=== PATIENT | male | born 1940 | race Caucasian/White ===

== ENCOUNTER 2018-11-05 12:14 | Inpatient (IN) | payer MEDICARE ==
[~2018-11-05] VITALS: Ht 195.6 cm; Wt 82.4 kg
[2018-11-05] MEDS ORDERED: ASPIRIN 325 MG TABLET ONE (12:25)
[2018-11-05 12:42] LABS: CREATININE 1.7 mg/dL (0.5-1.5)
[2018-11-05 12:47] LABS: INR 0.97 (0.85-1.15); PARTIAL THROMBOPLASTIN TIME 40.8 SEC (26.3-35.5); PROTHROMBIN TIME 10.2 SEC (9.6-11.6)
[2018-11-05 12:52] LABS: ALBUMIN 4.2 g/dL (3.5-5.0); BILIRUBIN,TOTAL 0.7 mg/dL (0.2-1.0); TOTAL PROTEIN, SERUM 7.8 g/dL (6.0-8.3)
[2018-11-05 12:53] LABS: BASOPHILS % (AUTO) 0.5 % (0.0-5.0); EOSINOPHILS % (AUTO) 0.6 % (0.0-8.0); HEMATOCRIT 35.4 % (42-54); LYMPHOCYTES % (AUTO) 10.1 % (21.0-51.0); MEAN CORPUSCULAR HEMOGLOBIN 30.4 pg (27.0-33.0); MEAN CORPUSCULAR HGB CONC 34.7 g/dL (32.0-36.0); MEAN CORPUSCULAR VOLUME 87.6 fL (79-99); MONOCYTES % (AUTO) 6.8 % (3.0-13.0); NUCLEATED RED BLOOD CELLS 0.1 % (0.0-0.19); PLATELET COUNT (AUTO) 191 K/uL (130-400); RED BLOOD CELL COUNT(AUTO) 4.04 MIL/uL (4.50-6.20); RED CELL DISTRIBUTION WIDTH 12.7 % (11.0-15.5); WHITE BLOOD COUNT (AUTO) 7.1 K/uL (4.8-10.8)
[2018-11-05] MEDS ORDERED: NITROGLYCERIN 1GM/1 INCH PACKET TD ONE (13:40)
[2018-11-05] MEDS ORDERED: METOPROLOL TARTRATE 25 MG TAB ONE (13:40)
[2018-11-05] MEDS ORDERED: ENOXAPARIN SODIUM 100 MG/1 ML SQ ONE (13:40)
[2018-11-05] MEDS ORDERED: ACETAMINOPHEN 325 MG TAB PO PRN (14:30)
[2018-11-05] MEDS ORDERED: ONDANSETRON HCL 4 MG/2 ML VIAL IVP PRN (14:30)
[2018-11-05] MEDS ORDERED: MORPHINE SULFATE 2 MG/ML 1ML SYG IV PRN (14:30)
[2018-11-05] MEDS ORDERED: HYDRALAZINE HCL 20 MG/ML VIAL IV PRN (14:30)
[2018-11-05] MEDS: FAMOTIDINE 20MG TAB 20 MG TAB PO SCH (14:44)
[2018-11-05 17:50] LABS: TROPONIN I 6.77 ng/mL (0.00-0.06)
[2018-11-05] MEDS ORDERED: NITROGLYCERIN 0.4 MG SL TAB SL PRN (20:30)
[2018-11-05] MEDS: METOPROLOL TARTRATE 25 MG TAB PO SCH (21:00)
[2018-11-05] MEDS: ATORVASTATIN CALCIUM 40 MG TABLET PO SCH (21:00)
[2018-11-05 23:00] VITALS: BP 163/92
[2018-11-05] MEDS ORDERED: ATORVASTATIN CALCIUM 40 MG TABLET ONE (23:00)
--- NOTE | 2018-11-05 23:45 | NUR ---
PATIENT TO ROOM. ORIENTATED TO CALL [facility] AND ROOM. PATIENT DENIES ANY COMPLAINTS OF PAIN OR DISCOMFORT AT PRESENT. PATIENT SHAVED BY ARTIFICIAL PEARL MAKER AND SHOWERED. PATIENT VERBALIZED UNDERSTANDING OF NPO STATUS AT MIDNIGHT. CONSENT SIGNED BY PATIENT.
[2018-11-05 23:47] LABS: TROPONIN I 9.88 ng/mL (0.00-0.06)
[2018-11-06] VITALS (12 sets, daily range): BP systolic 96–146; BP diastolic 53–88
[2018-11-06] MEDS ORDERED: ESCI5TAB PO (00:40)
[2018-11-06 06:11] LABS: HEMATOCRIT 34.7 % (42-54); MEAN CORPUSCULAR HEMOGLOBIN 30.6 pg (27.0-33.0); MEAN CORPUSCULAR HGB CONC 34.6 g/dL (32.0-36.0); MEAN CORPUSCULAR VOLUME 88.5 fL (79-99); NUCLEATED RED BLOOD CELLS 0.1 % (0.0-0.19); PLATELET COUNT (AUTO) 164 K/uL (130-400); RED BLOOD CELL COUNT(AUTO) 3.92 MIL/uL (4.50-6.20); RED CELL DISTRIBUTION WIDTH 12.3 % (11.0-15.5)
[2018-11-06 06:40] LABS: ALBUMIN 3.8 g/dL (3.5-5.0); BILIRUBIN,TOTAL 0.6 mg/dL (0.2-1.0); CREATININE 1.4 mg/dL (0.5-1.5); POTASSIUM 4.5 mmol/L (3.5-5.1); TOTAL PROTEIN, SERUM 6.7 g/dL (6.0-8.3)
[2018-11-06] MEDS: ENOXAPARIN SODIUM 80 MG/0.8 ML SQ SCH ×2 (06:49→21:12)
[2018-11-06 06:52] LABS: TROPONIN I 6.52 ng/mL (0.00-0.06)
[2018-11-06] MEDS: ASPIRIN 325MG EC TAB 325 MG TABLET.DR PO SCH (07:07)
[2018-11-06] MEDS: FAMOTIDINE 20MG TAB 20 MG TAB PO SCH (07:34)
[2018-11-06] MEDS: METOPROLOL TARTRATE 25 MG TAB PO SCH ×2 (07:34→21:00)
--- NOTE | 2018-11-06 08:00 | NUR ---
ASSESSMENT PT IS AAOX4 DENIES CP DENIES SOB DENIES NV NO COMPLAINTS. RESTING IN BED. PENDING [facility] TODAY, LOVENOX NOT GIVEN.
[2018-11-06] MEDS ORDERED: ENOXAPARIN SODIUM 30 MG/0.3 ML SQ SCH (09:00)
[2018-11-06] MEDS ORDERED: LIDOCAINE HCL 1% 20 ML VIAL ONE (09:04)
[2018-11-06] MEDS ORDERED: NITROGLYCERIN 5 MG/ML 10 ML VIAL IV ONE (09:04)
[2018-11-06] MEDS ORDERED: IOHEXOL 350 MG/ML 100ML INFUS..BTL IV ONE (09:04)
[2018-11-06] MEDS ORDERED: MIDAZOLAM HCL 1 MG/ML 2ML VIAL ONE (09:04)
[2018-11-06] MEDS ORDERED: IOHEXOL-350 50ML VIAL IV ONE (09:04)
[2018-11-06] MEDS ORDERED: BIVALIRUDIN 250 MG/VIAL IV ONE (09:04)
--- NOTE | 2018-11-06 09:20 | NUR ---
DOWN TO NEW AUTOS DELIVERY DRIVER VIA BED WITH NEW AUTOS DELIVERY DRIVER STAFF
[2018-11-06] MEDS ORDERED: FENTANYL CITRATE PF 50 MCG/1 ML 2ML VIAL ONE (09:33)
[2018-11-06] MEDS ORDERED: SODIUM CHLORIDE 0.9% 1000ML 1,000 ML IV SCH (10:17)
[2018-11-06] MEDS: ISOSORBIDE MONO 30MG TAB SR PO SCH (10:54)
--- NOTE | 2018-11-06 10:55 | NUR ---
RETURNED FROM SURGERY TECHNICIAN BEDREST IN PROGRESS, DSTAT IN PLACE NO OOZING NO BRUISING NOTED. RIGHT GROIN DOES HAVE SOME FIRMNESS TO DSTAT SITE BUT REST OF AREA AROUND SITE IS SOFT. DR ARANA IS AWARE. BEDREST X2 HRS ORDERED, PATIENT AGREES TO COMPLY. CALL LIGHT WITHIN REACH.
--- NOTE | 2018-11-06 13:01 | NUR ---
DC PLAN VISITED WITH PATIENT. PATIENT LIVES WITH SPOUSE. INDEPENDENT ABLE TO PERFORM ADL'S. PATIENT HAS NO SERVICES OR DME'S. FEELS SAFE TO RETURN HOME. Addendum: 11/06/18 at 1303 by YEIMY MEREDITH RN CM Amended: Links added.
--- NOTE | 2018-11-06 18:28 | NUR ---
STATUS RIGHT GROIN IS SOFT. D STAT IN PLACE, CLEAN AND DRY, NO COMPLAINTS.
[2018-11-06] MEDS: ATORVASTATIN CALCIUM 40 MG TABLET PO SCH (21:11)
[2018-11-06] MEDS: LISINOPRIL 5 MG TABLET PO SCH (21:11)
--- NOTE | 2018-11-07 | NUR ---
PT IV FLUIDS COMPLETED. NO DISTRESS NOTED. HAS BEEN STABLE. ABLE TO AMBULATE. AA03. SIVA.
[2018-11-07 03:29] VITALS: BP 140/67
[2018-11-07] MEDS: FAMOTIDINE 20MG TAB 20 MG TAB PO SCH (07:23)
[2018-11-07] MEDS: LISINOPRIL 5 MG TABLET PO SCH (07:23)
[2018-11-07] MEDS: ASPIRIN 325MG EC TAB 325 MG TABLET.DR PO SCH (07:23)
[2018-11-07] MEDS: ISOSORBIDE MONO 30MG TAB SR PO SCH (07:23)
[2018-11-07] MEDS: METOPROLOL TARTRATE 25 MG TAB PO SCH (07:23)
[2018-11-07] MEDS: ENOXAPARIN SODIUM 80 MG/0.8 ML SQ SCH (07:24)
[2018-11-07 07:40] VITALS: BP 127/67
--- NOTE | 2018-11-07 08:00 | NUR ---
ASSESSMENT PT IS AAOX4 DENIES CP DENIES SOB DENIES NV, RESTING IN BED. NO COMPLAINTS. RIGHT GROIN IS RAISED, BRUISED, BUT SOFT. NO OOZING NOTED, DSTAT DRESSING IS IN PLACE. DENIES PAIN TO SITE. CALL LIGHT WITHIN REACH.
[2018-11-07] MEDS ORDERED: CLOPIDOGREL BISULFATE 75 MG TAB PO SCH (09:00)
[2018-11-07 09:19] LABS: HEMATOCRIT 31.9 % (42-54); MEAN CORPUSCULAR HEMOGLOBIN 30.2 pg (27.0-33.0); MEAN CORPUSCULAR HGB CONC 34.1 g/dL (32.0-36.0); MEAN CORPUSCULAR VOLUME 88.6 fL (79-99); PLATELET COUNT (AUTO) 158 K/uL (130-400); RED CELL DISTRIBUTION WIDTH 12.4 % (11.0-15.5); WHITE BLOOD COUNT (AUTO) 7.6 K/uL (4.8-10.8)
[2018-11-07 09:26] LABS: CREATININE 1.6 mg/dL (0.5-1.5); POTASSIUM 4.3 mmol/L (3.5-5.1)
[2018-11-07 09:51] LABS: B-TYPE NATRIURETIC PEPTIDE 97 pg/mL (0-100)
--- NOTE | 2018-11-07 10:30 | NUR ---
2D ECHO AT BEDSIDE
[2018-11-07 11:20] VITALS: BP 98/52
--- NOTE | 2018-11-07 12:15 | NUR ---
DR ARANA AWARE OF 2D ECHO DONE OK TO DC HOME
[2018-11-07 15:53] VITALS: BP 106/57
--- NOTE | 2018-11-07 17:10 | NUR ---
DC TO HOME DR JANSEN ROUNDED, OK TO DC HOME. PT AND SPOUSE VERBALIZE DC INSTRUCTIONS UNDERSTANDING. AGREE TO TAKE MEDS ORDERED, AGREE TO FOLLOW UP WITH DR ARANA OUTPT. PIV REMOVED CATH TIP INTACT, TELE PACK REMOVED. AMBULATED DOWN WITH ME TO FRONT LOBBY TO RIDE.
== END 2018-11-07 17:20 | disposition home or self-care (01) | DRG 281 ==
LOC: EDH 12:14 → EDHIP 14:20 → OBSVTOIN 14:20 → 2AH 23:39
PROVIDERS: ADMIT Family Medicine; ATTEND Family Medicine
PROC: 4A023N7 Measurement of Cardiac Sampling and Pressure, Left Heart, Percutaneous Approach (ICD-10-PCS; principal; 2018-11-06)
PROC: B2111ZZ Fluoroscopy of Multiple Coronary Arteries using Low Osmolar Contrast (ICD-10-PCS; 2018-11-06)
PROC: B2151ZZ Fluoroscopy of Left Heart using Low Osmolar Contrast (ICD-10-PCS; 2018-11-06)
DX: I21.4 Non-ST elevation (NSTEMI) myocardial infarction (principal); N17.9 Acute kidney failure, unspecified; K57.92 Diverticulitis of intestine, part unspecified, without perforation or abscess without bleeding; I13.0 Hypertensive heart and chronic kidney disease with heart failure and stage 1 through stage 4 chronic kidney disease, or unspecified chronic kidney disease; I25.110 Atherosclerotic heart disease of native coronary artery with unstable angina pectoris; N18.9 Chronic kidney disease, unspecified; Z87.891 Personal history of nicotine dependence; E03.9 Hypothyroidism, unspecified; E78.5 Hyperlipidemia, unspecified; I34.0 Nonrheumatic mitral (valve) insufficiency; K21.9 Gastro-esophageal reflux disease without esophagitis; K22.5 Diverticulum of esophagus, acquired; K44.9 Diaphragmatic hernia without obstruction or gangrene; Z79.82 Long term (current) use of aspirin; Z79.899 Other long term (current) drug therapy; Z82.49 Family history of ischemic heart disease and other diseases of the circulatory system; Z88.2 Allergy status to sulfonamides
CPT/HCPCS: 36415; 71045; 80048; 80053; 80061; 82550; 83874; 83880; 84484; 85025; 85027; 85610; 85730; 93005; 93306; 93458; 99156; 99157; 99291; C1894; G0378; J0583; J1644; J1650; J2250; J3010; J3490; J7030; Q9967

== ENCOUNTER → 2018-11-14 | Outpatient (CLI) | payer MEDICARE ==
[~2018-11-14] MED LIST: ESCI5TAB PO
== END | disposition home or self-care (01) ==
LOC: RAH 11:41
PROVIDERS: ATTEND Internal Medicine Cardiovascular Disease
DX: I72.4 Aneurysm of artery of lower extremity (principal); R59.0 Localized enlarged lymph nodes
CPT/HCPCS: 76882

== ENCOUNTER → 2019-01-31 | Outpatient (CLI) | payer MEDICARE | END | disposition home or self-care (01) | LOC: OIH 11:23 | PROVIDERS: ATTEND Internal Medicine Cardiovascular Disease | DX: J44.9 Chronic obstructive pulmonary disease, unspecified (principal); M41.86 Other forms of scoliosis, lumbar region; M47.814 Spondylosis without myelopathy or radiculopathy, thoracic region | CPT/HCPCS: 71046 ==

== ENCOUNTER → 2020-10-02 | Outpatient (CLI) | payer MEDICARE ==
[~2020-10-02] MED LIST changes: +ASPI-556 PO; +ATOR40TA69 PO; +ATOR40TA71 PO; +ESOM40CA54 PO; +LEVO100T12 PO; +LEVO88TA7 PO; +LISI2.5T2 PO; +METO25 PO; +NITR0.4T50 SL; +TRAM50TA4 PO; +[UNRECOGNIZED DRUG - OTHER] PO
== END | disposition home or self-care (01) ==
LOC: SHCH 12:49
PROVIDERS: ATTEND Internal Medicine Cardiovascular Disease
DX: R55 Syncope and collapse (principal); R06.09 Other forms of dyspnea; I10 Essential (primary) hypertension; E78.5 Hyperlipidemia, unspecified
CPT/HCPCS: 93306; 93356

== ENCOUNTER → 2021-04-21 | Outpatient (CLI) | payer MEDICARE ==
[~2021-04-21] MED LIST changes: +LISI2.5T13 PO; -LISI2.5T2 PO
== END | disposition home or self-care (01) ==
LOC: SHCH 09:48
PROVIDERS: ATTEND Internal Medicine Cardiovascular Disease
DX: I10 Essential (primary) hypertension (principal); E78.5 Hyperlipidemia, unspecified
CPT/HCPCS: 93306; 93356

== ENCOUNTER → 2022-05-20 | Outpatient (CLI) | payer MEDICARE | END | disposition home or self-care (01) | LOC: SHCH 07:31 | PROVIDERS: ATTEND Internal Medicine Cardiovascular Disease | DX: I08.8 Other rheumatic multiple valve diseases (principal); I11.9 Hypertensive heart disease without heart failure; E78.5 Hyperlipidemia, unspecified | CPT/HCPCS: 93306 ==

== ENCOUNTER → 2023-09-13 | Outpatient (CLI) | payer MEDICARE | END | disposition home or self-care (01) | LOC: SHCH 12:28 | PROVIDERS: ATTEND Internal Medicine Cardiovascular Disease | DX: I11.9 Hypertensive heart disease without heart failure (principal); I87.2 Venous insufficiency (chronic) (peripheral); I35.0 Nonrheumatic aortic (valve) stenosis; I87.1 Compression of vein; Z95.1 Presence of aortocoronary bypass graft | CPT/HCPCS: 93306; 93970 ==

== ENCOUNTER 2024-06-14 05:50 | Day surgery (SDC) | payer MEDICARE ==
[2024-06-12 09:33] LABS: BASOPHILS # (AUTO) 0.04 K/uL (0.00-0.20); BASOPHILS % (AUTO) 0.6 % (0.0-5.0); EOSINOPHILS # (AUTO) 0.08 K/uL (0.00-0.70); EOSINOPHILS % (AUTO) 1.1 % (0.0-8.0); HEMATOCRIT 40.2 % (42-54); IMMATURE GRANULOCYTE ABSOLUTE 0.02 K/uL (0-1); LYMPHOCYTES # (AUTO) 0.8 K/uL (1.0-4.8); LYMPHOCYTES % (AUTO) 11.4 % (21.0-51.0); MEAN CORPUSCULAR HGB CONC 33.3 g/dL (32.0-36.0); MEAN CORPUSCULAR VOLUME 89.9 fL (79-99); MONOCYTES # (AUTO) 0.6 K/uL (0.1-1.0); MONOCYTES % (AUTO) 8.2 % (3.0-13.0); NEUTROPHILS # (AUTO) 5.7 K/uL (1.8-7.7); NEUTROPHILS % (AUTO) 78.4 % (40.0-77.0); PLATELET COUNT (AUTO) 150 K/uL (130-400); RED BLOOD CELL COUNT(AUTO) 4.47 MIL/uL (4.50-6.20); RED CELL DISTRIBUTION WIDTH 12.3 % (11.0-15.5); WHITE BLOOD COUNT (AUTO) 7.2 K/uL (4.8-10.8)
[2024-06-12 09:43] VITALS: BP 191/82; PULSE 56; RESP 19; TEMP 97.3
[2024-06-12 09:46] LABS: CREATININE 1.3 mg/dL (0.5-1.3); POTASSIUM 4.6 mmol/L (3.5-5.1)
[2024-06-12 09:49] LABS: INR 1.04 (0.85-1.15); PROTHROMBIN TIME 11.6 SEC (9.6-11.6)
[2024-06-12 09:50] LABS: PARTIAL THROMBOPLASTIN TIME 40.3 SEC (26.3-35.5)
--- NOTE | 2024-06-12 10:26 | EKG ---
[facility] Test Date: 2024-06-12 Test Time: 10:17:08 Pat Name: ORVILLE DELACRUZ Department: [facility] Room: Gender: M Transportation Aide: [id number] : 1940 Requested By: BRISEIDA ARANA Order Number: [id number] Reading MD: Shanti Warren Measurements Intervals Warren Rate: 53 P: 44 AL: 221 QRS: -14 QRSD: 102 T: 54 QT: 448 QTc: 420 Interpretive Statements Sinus rhythm Prolonged AL interval Compared to ECG 04/22/2019 03:38:09 First degree AV block now present ST (T wave) deviation no longer present Possible ischemia no longer present Electronically Signed On 06-13-2024 08:10:30 SKIN PASS OPERATOR by Shanti Warren Please click the below link to view image of tracing.
--- NOTE | 2024-06-12 12:31 | HMCIMG ---
CHEST 1VW HISTORY: Preop COMPARISON: April 21, 2019 FINDINGS: A frontal projection of the chest was obtained. No acute pulmonary infiltrates is seen. Poststernotomy changes are seen. The heart is enlarged. Degenerative changes of the thoracolumbar spine are present. Aortic calcifications are seen. IMPRESSION: 1. No acute pulmonary infiltrate is seen.
--- NOTE | 2024-06-13 08:55 | NUR ---
report reported bun and creat to luiza vergara. ok to procedd
[2024-06-14] VITALS (12 sets, daily range): BP systolic 126–163; BP diastolic 53–82; PULSE 53–66; RESP 8–16; TEMP 97.2–97.7
[~2024-06-14] VITALS: Ht 190.5 cm; Wt 85.9 kg
[~2024-06-14 05:50] MED LIST changes: +AMLO-257 PO; -ATOR40TA71 PO; -ESOM40CA54 PO; -LISI2.5T13 PO; +METO-408 PO; -METO25 PO; -NITR0.4T50 SL; -TRAM50TA4 PO; -[UNRECOGNIZED DRUG - OTHER] PO
[2024-06-14] MEDS: 0.9%NACL 1000ML 1,000 ML IV SCH (06:28)
[2024-06-14] MEDS ORDERED: NITROGLYCERIN 50MG VIAL ONE (07:12)
[2024-06-14] MEDS ORDERED: HEParin 10,000 UNIT/10ML (1,000 UNIT/ML) VIAL ONE (07:12)
[2024-06-14] MEDS ORDERED: BIVALIRUDIN 250 MG/VIAL IV ONE (07:12)
[2024-06-14] MEDS ORDERED: HEParin-NS 1,000 UNIT/500 ML 1,000 ML IV ONE (07:12)
[2024-06-14] MEDS ORDERED: LIDOCAINE HCL 400MG/20ML VIAL ONE (07:12)
[2024-06-14] MEDS ORDERED: IOHEXOL 350 MG/ML 100ML INFUS..BTL IV ONE ×2 (07:19→12:20)
[2024-06-14] MEDS ORDERED: FENTanyl CITRate PF 50 MCG/1 ML 2ML VIAL ONE (07:32)
[2024-06-14] MEDS ORDERED: MIDAZOLAM HCL 1 MG/ML 2ML VIAL ONE (07:32)
[2024-06-14] MEDS ORDERED: HEParin-NS 1,000 UNIT/500 ML 500 ML IV ONE (07:40)
[2024-06-14] MEDS ORDERED: IOHEXOL-350 50ML VIAL IV ONE (08:35)
[2024-06-14] MEDS ORDERED: DEXTROSE 50%-WATER 50 ML DISP.SYRIN IV PRN (09:00)
[2024-06-14] MEDS ORDERED: NITROGLYCERIN 0.4 MG SL TAB SL PRN (09:00)
[2024-06-14] MEDS ORDERED: 0.9%NACL 1000ML 1,000 ML IV SCH (09:00)
[2024-06-14] MEDS ORDERED: GLUCAGON 1MG KIT 1 MG ML IM PRN (09:00)
--- NOTE | 2024-06-14 09:06 | PRN ---
Left Heart Cath-[place] PROCEDURE: 1. Right common femoral arterial sheath placement. Six [place] Korean 25 cm sheath 2. Selective coronary angiogram. 3. Left heart catheterization. 4. Left ventriculogram. 5. Right common femoral vein sheath placement 7 [place] 6. Right heart catheterization 7. Cardiac output measurements and aortic valve assessment INDICATIONS: Moderate aortic stenosis DESCRIPTION OF PROCEDURE: The patient was brought to the catheterization suite and prepped and draped in sterile fashion. An IV was started, if not already in place and both groins were exposed for arterial access. 1% lidocaine was used for local anesthesia and then a micropuncture kit was used to gain access and once free-flowing blood was seen, modified Seldinger technique was utilized to place a 6 [place] sheath into the right common femoral artery. Next same technique was utilized to place a 7 [place] sheath into the right common femoral vein. Next, preformed JL4, JL 3.5 and JR4 and 6 [place] IMT catheters were then used to selectively engage the [place] coronary vessels and multiple hand contrast injections were performed in different views to define the coronary anatomy. Next right heart catheterization was performed with balloon tipped Leakey-Wayne ca theter following protocol. A 0.025 in wire was used to get Leakey-Wayne catheter into the pulmonary artery with pressure measurements obtained and into the wedge position. Cardiac outputs were then obtained as well. Next, a 6 [place] angled pigtail catheter was used to cross the aortic valve. Simultaneous LVEDP and pulmonary wedge pressure measurements were obtained. Pressure measurements were obtained in the left ventriculogram was in the 30 CARR position. Next, pullback method was performed. At the end of the case, sheath was pulled. No complications occurred. FINDINGS: The left main artery was free of any stenosis. It gave rise to the left circumflex only as there was an ostial occlusion of the LAD. The left circumflex artery is a dominant system giving rise to the LPO and LPDA. There was minimal stenosis noted in the left circumflex system or its branches. This is unchanged from preoperative study noted in 2019. There is a very high diagonal branch that comes off of the LAD and can actually be seen on [place] injection and a saphenous vein graft to this small diagonal branch system is noted to be patent. There are some aneurysmal changes noted as well as some valvular structure still in place of the vein graft but good flow was noted. Renee-lad is noted to be patent with excellent retrograde filling of almost the entirety of the LAD and diagonal branch system The right coronary artery is a nondominant system but is patent and unchanged. Ejection fraction is greater than 60%. Wall motion appears to be normal. LVEDP is 22-24 mmHg. There was no evidence of significant mitral regurgitation. Aortic valve area by thermodilution is 1.1 centimeter squared and by Tej equation 1.04 centimeter squared cardiac output is 5.07 L per minute with a cardiac index of 2.37 L per minute per meter squared via thermodilution and 4.8 L per minute and 2.24 L per minute per meter squared via Tej equation RECOMMENDATIONS: IV hydration Proceed with CT angiogram via TAVR protocol Increase amlodipine to 5 mg twice daily Increase metoprolol succinate to 25 mg twice daily DC home later today BRISEIDA DE LA TORRE MD Jun 14, 2024 09:06
--- NOTE | 2024-06-14 11:50 | NUR ---
urinary: voided 300cc yellow color urine per urinal without difficulty.
--- NOTE | 2024-06-14 12:10 | NUR ---
CT SCAN: SENT TO CT VIA BED, AAA X 3.
[2024-06-14] MEDS ORDERED: metoPROLOL tartRATE 1 MG/ML 5ML VIAL IV ONE (12:39)
--- NOTE | 2024-06-14 12:55 | NUR ---
CT: RETURNED FROM CT VIA BED, AAA X 3.
--- NOTE | 2024-06-14 15:20 | NUR ---
DISCHARGE DISCHARGED INSTRUCTIONS GIVEN TO PATIENT AND SPOUSE. VERBALIZED UNDERSTANDING SPOUSE AND PATIENT.TAKEN OUT VIA WHEELCHAIR TO VEHICLE. NO SIGNS OF BLEEDING OR REDNESS TO THE SURROUNDING AREA. DRESSING DRY AND INTACT. IV REMOVED FROM LEFT ARM CATHETER INTACT. PATIENT AWAKE ALERT AND ORIENTED X 4.
--- NOTE | 2024-06-14 16:06 | HMCIMG ---
CT ANGIO TAVR PROTOCOL HISTORY: Aortic stenosis COMPARISON: None TECHNIQUE: CT angiography of the chest , abdomen and pelvis was performed. The study was performed using angiographic technique with maximum intensity projection reconstruction images. Patient was given 100 cc of Omnipaque through intravenous route. FINDINGS: No CT evidence of filling defect is seen to suggest pulmonary embolus. No CT evidence of aortic dissection is seen. Left lingular bronchiectasis changes are seen. Poststernotomy changes are seen. No evidence of parenchymal disease is seen. No CT evidence of pleural effusion or pericardial effusion is seen. The heart is enlarged. Coronary artery calcifications are seen. Subcentimeter hepatic cysts are seen. Small hiatal hernia is seen. There is diverticulosis. The liver, spleen, adrenal glands and pancreas are unremarkable. There is no evidence of hydronephrosis bilaterally. No evidence of renal stone is seen. There is right renal cyst posteriorly measuring 1.9 cm. Fecal material is seen in the colon. There are normal size retroperitoneal and mesenteric lymph nodes. No ascites is seen. Atherosclerotic changes are present. There is diffuse atherosclerotic disease. No evidence of abdominal aortic aneurysm is seen. No evidence of aortic stenosis is seen. The celiac, superior mesenteric and bilateral renal arteries are grossly patent. The visualized portion of the iliac and femoral arterial systems are also grossly patent. Pelvic sidewalls are symmetric bilaterally. Bladder is well distended without wall thickening. Prostate gland is borderline enlarged measuring 5 x 3.6 cm. There is left inguinal hernia with fat content. IMPRESSION: 1. No evidence of aortic stenosis is seen. Mild atherosclerosis. Right posterior renal cysts. Diverticulosis. No ascites. CT was performed with one or more following dose reduction techniques: automated exposure control, adjustment of the mA and kv according to patient's size, or use of a iterative reconstruction technique.
--- NOTE | 2024-06-18 23:01 | CARDIOLOGY ---
RAD REPORT: [facility] ANGIO RADIOLOGY REPORT: CORONARY CT ANGIOGRAPHY DATE: Jun 18, 2024 QUALITY: Excellent CLINICAL HISTORY AND INDICATION: [ CAD ] TECHNIQUE: After obtaining a preliminary fish machine feeder image, contrast imaging performed on an Aquillon [id number] scanner. A dedicated, limited window, coronary imaging protocol was used, with single breath-hold, retrospective ECG gating, and automated arrhythmia rejection. 100 cc of low osmolar contrast agent: Omnipaque 350 was delivered via a 18-gauge IV catheter in the right antecubital fossa, using a power injector and followed by 60 cc of normal saline bolus as a chaser. Collimated images were reformatted at 0.5 mm intervals, and sent to an offline independent workstation for interpretation, using 3D anatomic reconstructions: Curved multiplanar reconstructions, maximum intensity projections, and multiplanar imaging. 10 mg IV metoprolol was administered prior to scanning. No SL nitroglycerin was given. CORONARY ARTERY DESCRIPTIONS: The coronary arteries arise in normal position. Left main coronary artery: Normal caliber vessel that bifurcates into the LAD and LCx. No stenosis. Left anterior descending coronary artery: Normal caliber vessel and gives rise to diagonal and septal branches. Severe ostial LAD stenosis. There is calcified plaque in the mid LAD with 50% stenosis. Left circumflex coronary artery: Normal caliber, dominant and gives rise to a large OM branch. No stenosis. Right coronary artery: Small, non-dominant vessel. No stenosis. Patent JETER to LAD. Patent SVG to D1. 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 Thoracic Aorta: Normal diameter. Faby Joseph MD Cardiovascular Disease [facility] FABY JOSEPH MD Jun 18, 2024 23:01
== END 2024-06-14 15:20 | disposition home or self-care (01) ==
LOC: DAH 05:50
PROVIDERS: ATTEND Internal Medicine Cardiovascular Disease
DX: I35.0 Nonrheumatic aortic (valve) stenosis (principal); I25.10 Atherosclerotic heart disease of native coronary artery without angina pectoris; R00.1 Bradycardia, unspecified; R06.09 Other forms of dyspnea; I11.9 Hypertensive heart disease without heart failure; I25.2 Old myocardial infarction; E78.5 Hyperlipidemia, unspecified; E03.9 Hypothyroidism, unspecified; N28.1 Cyst of kidney, acquired; Z95.1 Presence of aortocoronary bypass graft; Z79.01 Long term (current) use of anticoagulants; Z79.82 Long term (current) use of aspirin; Z79.899 Other long term (current) drug therapy
CPT/HCPCS: 80048; 85025; 85610; 85730; 36415 ×2; 71045; 93005; 93461; 85347; 74174; 75574; C1769 ×2; C1894 ×4; J3010; J3490 ×3; J7030; J1644 ×3; J2250; Q9967 ×2; A4215; A4222; A4221; A4663; A4216; A4606; Q9965 ×2; A4223 ×3; 96360; 96361; 99156; 99157; J0583

== ENCOUNTER 2025-03-18 08:13 | Inpatient (IN) | payer MEDICARE ==
[2025-03-18] VITALS (41 sets, daily range): BP systolic 74–161; BP diastolic 31–105; PULSE 62–93; RESP 8–21; TEMP 98–98.1; O2SAT 95–99
[~2025-03-18] VITALS: Ht 190.5 cm; Wt 74.8 kg
--- NOTE | 2025-03-18 08:43 | ERN ---
General Chief Complaint: Headache Stated Complaint: HEADACHE, LOSS OF BALANCE X ONE WEEK Time Seen by MD: 08:17 Source: patient History of Present Illness Initial Comments Patient is a 85-year-old male coming in complaining of frontal headache. Per p atient this has been ongoing for one week. He also states that he has been feeling off and weakness at the same time. Allergies: Uncoded Allergies: SULFA (Allergy, Unknown, 11/05/18) Home Meds Active Scripts Atorvastatin Calcium (LIPITOR) 40 Mg Tablet, 40 MG PO HS for 30 Days, #30 TAB Prov:REBECCA JANSEN Jr., MD 04/22/19 Reported Medications Metoprolol Succinate (Metoprolol Succinate) 25 Mg Tab.er.24h, 25 MG PO AM, TAB METROPOLOL SUCCINATE OF 25MG I TABLET TWICE A DAY. 06/12/24 Amlodipine Besylate (Amlodipine Besylate) 5 Mg Tablet, 5 MG PO PM, TAB AMLODIPINE 5MG I TABLET BY MOUTH TWICE A DAY 06/12/24 Levothyroxine Sodium (Levothyroxine Sodium) 100 Mcg Tablet, 100 MCG PO DAILY, TAB 04/13/19 Aspirin (Aspir 81) 81 Mg Tablet.dr, 81 MG PO DAILY, TAB 04/13/19 Levothyroxine Sodium (Levothyroxine Sodium) 88 Mcg Tablet, 88 MCG PO SAT/SUN, TAB 04/13/19 Escitalopram Oxalate (Lexapro) 5 Mg Tablet, 10 MG PO DAILY, TAB 11/06/18 Past Medical History Past Medical History: High Cholesterol, Heart Disease, Hypertension Past Surgical History: Tonsillectomy, CABG ROS Dictation CONSTITUTIONAL: No chills, no fever, no weakness, no diaphoresis, no malaise. HEAD/FACE: No signs of trauma. EENT: No eye pain, no blurred vision, no tearing, no double vision, no ear pain, no ear discharge, no nose pain, no nasal congestion, no throat pain, no throat swelling, no mouth pain. RESPIRATORY: No cough, no orthopnea, no SOB, no stridor, no wheezing. CARDIOVASCULAR: No chest pain, no edema, no palpitations, no syncope. GASTROINTESTINAL/ABDOMINAL: No abdominal pain, no constipation, no diarrhea, no nausea, no vomiting. GENITOURINARY: No abnormal discharge, no dysuria, no frequent urination, no hematuria. No complaints of pain in the genitals. MUSCULOSKELETAL: No back pain, no gout, no joint pain, no joint swelling, no muscle pain, no muscle stiffness, no neck pain. INTEGUMENTARY: No change in color, no change in hair/nails, no dryness, no lesion, no lumps, no rash. NEUROLOGICAL/PSYCH: No anxiety, not depressed, no emotional problem, no headache, no numbness, no pre-existing deficit, no history of seizures, no tremors, no weakness. HEMATOLOGIC/LYMPHATIC: Not anemic, no history of blood clots, no apparent bleeding, no bruising, glands not swollen. All Systems Negative, Except as Noted. Physical Exam Physical Exam Dictation VITAL SIGNS: Reviewed. GENERAL APPEARANCE: Alert, oriented x3, no acute distress, obese. HEAD AND FACE: Non-traumatic. EYES: PERRL, pink conjunctivas, eyelid no trauma, anterior chamber clear. EARS: Pinnas intact and no signs of trauma or erythema. Ear canals clear and no discharge. TMs no erythema. NOSE: No discharge, no bleeding. OROPHARYNX: Mouth normal, teeth no caries, tongue pink. Pharynx clear, no erythema. Tonsils no exudates, no abscesses noted. Mucous membrane moist. NECK: Supple, non-tender, no thyromegaly, no masses, no JVD, no bruits. BREAST: Deferred. CHEST: No tenderness, no crepitus, no paradoxical movement, no retractions. LUNGS: Clear, well-ventilated, symmetric, no rales, no wheezing, no rhonchi, no stridor, good breath sounds bilaterally. HEART: Regular rate, regular rhythm, no murmur, no gallops. VASCULAR: No peripheral edema. ABDOMEN: Soft, positive bowel sounds, nondistended, no guarding, nontender, no rebound, no masses no hepatomegaly, no splenomegaly, no Dowling's sign, no hernias. RECTAL: Deferred. GENITAL: Deferred. NEUROLOGICAL: Normal speech, gross motor function intact, gross sensory function intact. MUSCULOSKELETAL: Neck nontender, full range of motion, back nontender, full range of motion. EXTREMITIES: Nontender, full range of motion. SKIN: Color pink, dry, no turgor, no rash, no lacerations, no abrasions, no contusions. LYMPHATICS: Deferred. Results Laboratory and Microbiology Lab and Micro Result Laboratory Tests Test 03/18/25 08:32 03/18/25 08:45 03/18/25 08:56 Urine Color YELLOW (YELLOW) Urine Appearance CLEAR (CLEAR) Urine pH 5.5 (5.0-8.0) Urine Specific [place] 1.021 (1.001-1.031) Urine Protein 70 mg/dL (NEGATIVE) H Urine Glucose (UA) NEGATIVE mg/dL (NEGATIVE) Urine Ketones NEGATIVE mg/dL (NEGATIVE) Urine Occult Blood +- (TRACE) (NEGATIVE) H Urine Nitrate NEGATIVE (NEGATIVE) Urine Bilirubin NEGATIVE mg/dL (NEGATIVE) Urine Urobilinogen 0.2 mg/dL (0.2-1.0) Urine Leukocyte Esterase NEGATIVE Doreen/uL Urine RBC 2-5 /HPF (0-1) H Urine WBC 2-5 /HPF (0-1) H Urine Squamous Epithelial Cells Rare /HPF (0-2) Urine Bacteria None Seen /HPF (None Seen) White Blood Count 6.2 K/uL (4.8-10.8) Red Blood Count 3.61 MIL/uL (4.50-6.20) L Hemoglobin 10.9 g/dL (14.0-18.0) L Hematocrit 32.9 % (42-54) L Mean Corpuscular Volume 91.1 fL (79-99) Mean Corpuscular Hemoglobin 30.2 pg (27.0-33.0) Mean Corpuscular Hemoglobin Concent 33.1 g/dL (32.0-36.0) Red Cell Distribution Width 13.2 % (11.0-15.5) Platelet Count 159 K/uL (130-400) Mean Platelet Volume 11.3 fL (7.5-10.5) H Immature Granulocyte % (Auto) 0.3 % (0-1) Neutrophils (%) (Auto) 82.5 % (40.0-77.0) H Lymphocytes (%) (Auto) 8.7 % (21.0-51.0) L Monocytes (%) (Auto) 6.6 % (3.0-13.0) Eosinophils (%) (Auto) 1.3 % (0.0-8.0) Basophils (%) (Auto) 0.6 % (0.0-5.0) Neutrophils # (Auto) 5.1 K/uL (1.8-7.7) Lymphocytes # (Auto) 0.5 K/uL (1.0-4.8) L Monocytes # (Auto) 0.4 K/uL (0.1-1.0) Eosinophils # (Auto) 0.08 K/uL (0.00-0.70) Basophils # (Auto) 0.04 K/uL (0.00-0.20) Absolute Immature Granulocyte (auto 0.02 K/uL (0-1) Nucleated Red Blood Cells 0.0 % (0.0-0.19) White Cell Morphology Comment See comments Sodium Level 141 mmol/L (136-145) Potassium Level 4.1 mmol/L (3.5-5.1) Chloride Level 103 mmol/L (101-111) Carbon Dioxide Level 29 mmol/L (21-32) Blood Urea Nitrogen 23 mg/dL (7-18) H Creatinine 1.2 mg/dL (0.5-1.3) Glomerular Filtration Rate Calc 60 mL/min (>90) Random Glucose 117 mg/dL (70-105) H Total Calcium 9.4 mg/dL (8.5-10.1) Troponin I High Sensitivity 24 ng/L (4-75) Influenza Type A Antigen Negative For Type A Influenza Type B Antigen Negative For Type B SARS-CoV-2, RNA, NAAT NEGATIVE SARS CoV-2 Group A Streptococcus Rapid negative (NEGATIVE) Labs Reviewed?: Yes EKG/XRAY/US/CT/MRI EKG Comment 03/18/2025 time 8:29 a.m. Ventricular rate 50 Sinus rhythm PA [address] wave elevation or depression CT Scan Comment CT OF THE HEAD-LEFT SUBDURAL HEMATOMA CHRONIC MDM MDM: Differential diagnosis: CHRONIC SUBDURAL HEMATOMA, SUBDURAL HEMATOMA, BRAIN BL EED, Rationale: Tests considered and ordered secondary to shared decision making include: Previous outside records reviewed: Old ER visits. Risk of complication and/or morbidity or mortality of patient management: None Medications-Per medication reconciliation Need for hospitalization: Patient does meet criteria for hospitalization. Need for emergency major/minor surgery: No There are no social concerns with this patient. Prescription drug management Prescriptions will include symptomatic care Patient's prior external medical records from other ER visits were reviewed by me as indicated. Prior testing and results from previous visits were reviewed. Prior tests were taken into account with medical decision making and resource utilization, independent historian/historians were used to obtain complete medical history. I independently interpreted the test that were performed, results were reviewed by me and considered findings on radiology if ordered. Medical management and examination interpretation discussions were had by me with other qualified healthcare professionals as indicated for the patient's care. PATIENT IS A AN 85-YEAR-OLD GENTLEMAN COMING IN COMPLAINING OF FRONTAL HEADACHE. PATIENT WAS FOUND TO HAVE A SUBDURAL HEMATOMA PATIENT STATES THAT HE IS ON BLOOD THINNERS ASPIRIN AND ANOTHER MEDICATION WE ARE TRYING TO GET THE ACCURATE NAME BUT WERE UNSUCCESSFUL. SPOKE TO DR. LLOYD NEUROSURGEON LIMITATION STARTED PATIENT ON MANNITOL AND DECADRON, PATIENT WILL BE ADMITTED UNDER THE CARE OF . ED Course Orders Procedure Category Date Status Time Cbc With Differential LAB 03/18/25 Complete 08:19 Chest 1vw RAD 03/18/25 Taken 08:19 12 Lead Ekg Tracing- EKG 03/18/25 Logged Technical 08:19 0.9%Nacl 1000ml (Ns PHA 03/18/25 Complete 1000ml) 08:30 Troponin I High LAB 03/18/25 Complete Sensitivity 08:19 Urinalysis Profile LAB 03/18/25 Complete 08:19 Basic Metabolic Panel LAB 03/18/25 Complete 08:19 Ct Head/Brain W/O CT 03/18/25 Taken Contrast 08:19 Acetaminophen 500mg PHA 03/18/25 Complete Tab (Tylenol 500mg T 08:30 Covid Rna Naat LAB 03/18/25 Complete 08:19 Rapid (Group A Strep) LAB 03/18/25 Complete 08:19 Influenza Type A & B, LAB 03/18/25 Complete Rapid 08:19 Dexamethasone 4mg/Ml PHA 03/18/25 Complete 1ml Vial (Dexametha 10:00 Nicardipine 25mg Inj PHA 03/18/25 In Process (Cardene 25mg Inj) 10:00 Mannitol 20% 500ml PHA 03/18/25 In Process Bag (Osmitrol 20% 500 10:30 Admit Orders ADM 03/18/25 Transmitted 09:59 Neurosurgery Consult CONPHYSVC 03/18/25 Transmitted 10:03 Critcal Care Consult CONPHYSVC 03/18/25 Transmitted 10:03 Cardiology Consult CONPHYSVC 03/18/25 Transmitted 10:03 Current Medications Medications (Trade) Dose Ordered Sig/Judie Route PRN Reason Start Time Stop Time Status Last Admin Dose Admin Acetaminophen (TYLenol 500MG TAB) 1,000 mg ONCE ONCE PO 03/18/25 08:30 03/18/25 08:31 DC 03/18/25 09:37 Dexamethasone Sodium Phosphate (dexaMETHasone 4MG/ML 1ML VIAL) 4 mg ONCE ONCE IV 03/18/25 10:00 03/18/25 10:01 DC Mannitol (Osmitrol 20% 500ml Bag) 19 gm ONCE ONCE IV 03/18/25 10:30 03/18/25 10:31 Nicardipine HCl 25 mg/Sodium Chloride 250 ml @ 0 mls/hr PROTOCOL IV 03/18/25 10:00 04/17/25 09:59 Sodium Chloride 1,000 ml @ 0 mls/hr ONCE ONCE IV 03/18/25 08:30 03/18/25 08:31 DC 03/18/25 09:38 Vital Signs Date Time Temp Pulse Resp B/P (MAP) Pulse Ox O2 Delivery O2 Flow Rate FiO2 03/18/25 08:49 97.7 78 20 189/70 99 Room Air* 0 21 03/18/25 08:17 97.5 56 16 198/64 98 Room Air 0 Critical Care Note Comments Critical Care Procedure Note Authorized and Performed by: me Total critical care time: Approximately 36 minutes Due to a high probability of clinically significant, life threatening deterioration, the patient required my highest level of preparedness to intervene emergently and I personally spent this critical care time directly and personally managing the patient. This critical care time included obtaining a history; examining the patient; pulse oximetry; ordering and review of studies; arranging urgent treatment with development of a management plan; evaluation of patient's response to treatment; frequent reassessment; and, discussions with other providers. This critical care time was performed to assess and manage the high probability of imminent, life-threatening deterioration that could result in multi-organ failure. It was exclusive of separately billable procedures and treating other patients and teaching time. Please see MDM section and the rest of the note for further information on patient assessment and treatment. DX & DISP Disposition: Inpatient Decision to Admit Time: 10:26 Departure Impression: Primary Impression: Chronic subdural hematoma Condition: Stable Referrals: KAMRON NUNEZ MD (PCP) HENNY MENCHACA MD Mar 18, 2025 08:43
[2025-03-18 08:52] LABS: IMMATURE GRANULOCYTE ABSOLUTE 0.02 K/uL (0-1); NUCLEATED RED BLOOD CELLS 0.0 % (0.0-0.19); PLATELET COUNT (AUTO) 159 K/uL (130-400); RED BLOOD CELL COUNT(AUTO) 3.61 MIL/uL (4.50-6.20); RED CELL DISTRIBUTION WIDTH 13.2 % (11.0-15.5); WHITE BLOOD COUNT (AUTO) 6.2 K/uL (4.8-10.8)
[2025-03-18 08:54] LABS: APPEARANCE,URINE CLEAR (CLEAR); GLUCOSE, URINE (UA) NEGATIVE (NEGATIVE); LEUKOCYTE ESTERASE ,URINE NEGATIVE Leu/uL (NEGATIVE); NITRATE,URINE NEGATIVE (NEGATIVE); OCCULT BLOOD,URINE +- (TRACE) (NEGATIVE)
[2025-03-18 09:00] LABS: CREATININE 1.2 mg/dL (0.5-1.3); GLOMERULAR FILTR. RATE CALC 60.0 mL/min (>90); GLUCOSE,RANDOM 117.0 mg/dL (70-105); SODIUM SERUM 141.0 mmol/L (136-145); UREA NITROGEN, BLOOD 23.0 mg/dL (7-18)
[2025-03-18 09:11] LABS: RAPID GROUP A STREP negative (NEGATIVE)
[2025-03-18 09:15] LABS: SARS-CoV-2, RNA, NAAT NEGATIVE SARS CoV-2 (NEGATIVE)
[2025-03-18 09:19] LABS: ADD UA MICROSCOPIC YES
[2025-03-18 09:20] LABS: SQUAMOUS EPITHELIAL CELL,UR Rare /HPF (0-2)
[2025-03-18 09:21] LABS: INFLUENZA TYPE A Negative For Type A (NEGATIVE); INFLUENZA TYPE B Negative For Type B (NEGATIVE)
[2025-03-18] MEDS: 0.9%NACL 1000ML 1,000 ML IV ONE (09:38)
--- NOTE | 2025-03-18 10:23 | NUR ---
NEUROSURGERY CONSULT: DR MENCHACA SPOKE TO DR LLOYD ABOUT PT.
--- NOTE | 2025-03-18 10:25 | NUR ---
CRITICAL CARE CONSULT: JOSE C CHOW INFORMED OF PT CONSULT FOR ICU
--- NOTE | 2025-03-18 10:29 | HMCIMG ---
EXAM: CR Chest, 1 View. CLINICAL HISTORY: cp COMPARISON: Radiograph dated June 12, 2024 FINDINGS: LUNGS: The lungs show no infiltrate or other acute finding. PLEURAL SPACES: No evidence of pleural effusion or pneumothorax. MEDIASTINUM: Prior sternotomy. Aortic valve replacement. Heart size is stable. Pulmonary vessels are within normal limits. BONES: No aggressive appearing osseous lesion seen. IMPRESSION: 1. No acute cardiopulmonary findings. /[place]
--- NOTE | 2025-03-18 10:32 | HMCIMG ---
EXAM: CT Head Without IV contrast. CLINICAL HISTORY: frontal headache TECHNIQUE: Axial computed tomography images of the head/brain without intravenous contrast. COMPARISON: None provided. FINDINGS: Acute and chronic subdural hematoma with a maximum thickness of 1.8 cm along the left lyqrwj-ctdveqg-segjwymb convexity, exerting mass effect in the surrounding sulci and causing a midline shift of 1.6 cm to the right, resultant right subfalcine herniation and left mild uncal herniation. Hypodensities within the deep white matter of the left cerebral convexity suggesting vasogenic edema. The brain stem and cerebellum are otherwise unremarkable. Right cerebral ventricles are normal for age. Left cerebral ventricles are effaced. Left cisternal spaces are effaced. Right cisternal spaces are normal for age. There are no abnormalities in the cerebellopontine angle areas on both sides. Bilateral mastoid air cells and the paranasal sinuses are clear and pneumatized. The orbital contents are unremarkable. No evidence of any obvious fracture seen. There are no abnormalities in the calvarium. IMPRESSION: Acute and chronic subdural hematoma with a maximum thickness of 1.8 cm along the left uoasug-ekdagrz-dnrqpkcr convexity. Midline shift of 1.6 cm to the right, resultant right subfalcine herniation and left mild uncal herniation. /[place]
--- NOTE | 2025-03-18 10:32 | NUR ---
CARDIOLOGY CONSULT: [facility]U CALLED IN RESPONCE TO THE CONSULT AND JHOAN SPOKE W/HER.
--- NOTE | 2025-03-18 10:32 | NUR ---
HOME MEDICATIONS: NO HOME MEDS W/PT AND HE DOES NOT REMEMBER. HIS FRIEND WILL GO AND COLLECT THEM AND BRING THEM BACK.
[2025-03-18] MEDS: MANNITOL 20% 500 ML IV.SOLN IV ONE (11:16)
--- NOTE | 2025-03-18 11:34 | CONS ---
[facility] CARDIOLOGY CONSULTATION REPORT Date Patient Seen: Mar 18, 2025 Time of Visit: 11:15 Requesting Physician: Ming Christianson MD Reason for Consultation: HTN emergency History of Present Illness: This is an 85-year-old white male with a past medical history of hypertension, dyslipidemia, hypothyroidism, coronary artery disease status post CABG x 2 vessels with JETER to the LAD, saphenous vein graft to the diagonalApril 2019 and aortic stenosis status post TAVR with an [employer] 26 mm aortic TAVR valve 09/05/[address] Severo Quesada, 2/2 grafts patent by follow-up cardiac catheterization June 2024 presented to the ER with a one- week history of frontal headaches with the associated poor balance. This morning, 03/18/2025 at around 6:00 a.m., he awoke with headache and felt as if he was confused or "foggy", feeling as if he was seeing things or having bad dreams. A CT scan of the brain in the ER demonstrated "acute on chronic subdural hematoma with a maximum thickness of 1.8 cm along the left armyrs-cmbarwv-udjudrmd convexity. Midline shift of 1.6 cm to the right, resultant right subfalcine herniation and left mild uncal herniation." He was noted to have a blood pressure 198/64 and cardiology consult was requested for hypertensive emergency. Upon assessment in the ER, the patient is awake, alert and oriented x 3. He is currently receiving infusion of mannitol and is being placed on a Cardene drip. Neurosurgical consult is pending. He offers no complaints of chest pain, dyspnea, nausea, vomiting or palpitations. He denies any trauma including head trauma or falls. He admits to compliance with his medications but may have forgotten to take his antihypertensive medicines yesterday but is uncertain. His current medication reconciliation is pending but he does report he has been on dual antiplatelet therapy with aspirin and clopidogrel since his TAVR 09/05/2024. An EKG on admission demonstrates sinus rhythm with peak T-waves in V3 and V4 and otherwise no evidence of ischemia. Past Medical History: Hypertension Dyslipidemia Zenker's diverticulum Hiatal hernia Hypothyroidism Coronary artery disease status post CABG x2 with JETER to the LAD and saphenous vein graft to the diagonal1 April 2019 Aortic stenosis status post TAVR with an [employer] 26 mm TAVR valve 09/05/2024 2/2 grafts patent by follow-up cardiac catheterization June 2024 Normal LV systolic function with an LVEF of 55-60% by prior 2D echocardiogram Cfbf-sv-vgjucdxv infrapopliteal peripheral artery disease Past Surgical History: Prior coronary artery bypass and recent TAVR Family History: Noncontributory Social History: The patient is , his is currently in the prison facility recovering from a fall. He has been independent. Habits: Former smoker. Admits alcohol consumption of 1 beer or glass of wine daily. Denies illicit drug use Home Meds: Pending reconciliation but does recall he has been on aspirin and clopidogrel since his TAVR valve 09/05/2024 Review of Systems: CONST: No fever, fatigue, or weight changes. EYES: No recent vision problems. ENT: No congestion, ear pain, or sore throat. C/V: No chest pain, palpitations, or edema. RESP: No cough, congestion, wheezing or shortness of breath. GI: No abdominal pain, nausea, vomiting, constipation, or diarrhea. : No incontinence or dysuria. SKIN: No rash. NEURO: Positive for one-week history of frontal headaches with the associated difficulty with his balance and some confusion or fogginess today. Denies any numbness or weakness, dizziness, or seizures. PSYCH: No depression or anxiety. HEME: No abnormal bruising or bleeding. LYMPH: No swollen glands. Physical Examination: GENERAL: No acute distress. HEAD: Normal with no signs of head trauma. EYES: PERRLA, EOMI, conjunctiva and sclera normal. ENT: Hearing grossly intact, normal oropharynx. NECK: Supple without JVD. There is no tenderness, lymphadenopathy, or masses. No thyromegaly. Normal carotid upstrokes without bruits. LUNGS: Clear breath sounds bilaterally. No wheezes, or rhonchi. HEART: Normal rate and rhythm. Normal S1 and S2 1/6 early peaking systolic ejection murmur at the right upper sternal border, no gallop or rub. VASC: Peripheral pulses +2 bilaterally. ABD: Bowel sounds normal, soft, nontender, no masses, no organomegaly. No audible bruits. : Not examined LYMPH: No lymphadenopathy noted. EXT: No clubbing, cyanosis or edema. SKIN: No rashes or lesions noted. NEURO: Awake, alert, and oriented x3. No focal sensory or strength deficits noted. Vital Signs (last 8hr) Date Time Temp Pulse Resp B/P (MAP) Pulse Ox O2 Delivery O2 Flow Rate FiO2 03/18/25 10:54 97.5 73 20 152/65 99 Room Air* 0 21 03/18/25 08:49 97.7 78 20 189/70 99 Room Air* 0 21 03/18/25 08:17 97.5 56 16 198/64 98 Room Air 0 Laboratory: Hematology Labs: Test 03/18/25 08:45 Range/Units White Blood Count 6.2 4.8-10.8 K/uL Red Blood Count 3.61 L 4.50-6.20 MIL/uL Hemoglobin 10.9 L 14.0-18.0 g/dL Hematocrit 32.9 L 42-54 % Mean Corpuscular Volume 91.1 79-99 fL Mean Corpuscular Hemoglobin 30.2 27.0-33.0 pg Mean Corpuscular Hemoglobin Concent 33.1 32.0-36.0 g/dL Red Cell Distribution Width 13.2 11.0-15.5 % Platelet Count 159 130-400 K/uL Mean Platelet Volume 11.3 H 7.5-10.5 fL Immature Granulocyte % (Auto) 0.3 0-1 % Neutrophils (%) (Auto) 82.5 H 40.0-77.0 % Lymphocytes (%) (Auto) 8.7 L 21.0-51.0 % Monocytes (%) (Auto) 6.6 3.0-13.0 % Eosinophils (%) (Auto) 1.3 0.0-8.0 % Basophils (%) (Auto) 0.6 0.0-5.0 % Neutrophils # (Auto) 5.1 1.8-7.7 K/uL Lymphocytes # (Auto) 0.5 L 1.0-4.8 K/uL Monocytes # (Auto) 0.4 0.1-1.0 K/uL Eosinophils # (Auto) 0.08 0.00-0.70 K/uL Basophils # (Auto) 0.04 0.00-0.20 K/uL Absolute Immature Granulocyte (auto 0.02 0-1 K/uL Nucleated Red Blood Cells 0.0 0.0-0.19 % White Cell Morphology Comment See comments Chemistry Labs: Test 03/18/25 08:45 Range/Units Sodium Level 141 136-145 mmol/L Potassium Level 4.1 3.5-5.1 mmol/L Chloride Level 103 101-111 mmol/L Carbon Dioxide Level 29 21-32 mmol/L Blood Urea Nitrogen 23 H 7-18 mg/dL Creatinine 1.2 0.5-1.3 mg/dL Glomerular Filtration Rate Calc 60 >90 mL/min Random Glucose 117 H 70-105 mg/dL Hemoglobin A1c 5.0 4.0-6.0 % Estimated Average Glucose (eAG) 97 70-126 mg/dL Total Calcium 9.4 8.5-10.1 mg/dL Troponin I High Sensitivity 24 4-75 ng/L Diagnostics / Radiology: CT scan of the brain 03/18/2025: -Acute and chronic subdural hematoma with a maximum thickness of 1.8 cm along the left fbxihi-wlwtynv-pesgdmnv convexity. Midline shift of 1.6 cm to the right, resultant right subfalcine herniation and left mild uncal herniation. Impression and Plan: Left subdural hematoma: -currently receiving mannitol and full neurosurgical consult is pending Hypertensive emergency: -continue with plans for Cardene drip -patient reports compliance with his antihypertensive drug therapy at home but perhaps may have missed his doses yesterday but is uncertain Coronary artery disease status post prior CABG x 2 with JETER to the LAD and saphenous vein graft to the diagonal April 2019 and 2/2 grafts patent by follow-up cardiac catheterization June 2024: Severe aortic stenosis status post TAVR with an [employer] 26 mm aortic TAVR valve 09/05/[address] Severo Quesada: -hold dual antiplatelet therapy at this point and plan to withdraw clopidogrel and continue with single antiplatelet therapy in the future Comorbidities: Hyperlipidemia Hypothyroidism peripheral artery disease Zenker's diverticulum Hiatal hernia Normal LV systolic function with an LVEF of 55-60% by prior 2D echocardiogram Nvtg-xf-jnkrugbd infrapopliteal peripheral artery disease DECLAN LUIS Mar 18, 2025 11:34
--- NOTE | 2025-03-18 14:02 | NUR ---
GAVE REPORT TO CHERISE RICH AT THIS TIME
[2025-03-18] MEDS ORDERED: CLOP75TA32 PO (15:14)
[2025-03-18] MEDS ORDERED: ESCI-8 PO (15:14)
[2025-03-18] MEDS ORDERED: FAMO20TA8 PO (15:14)
[2025-03-18] MEDS ORDERED: ATOR40TA71 PO (15:14)
[2025-03-18] MEDS ORDERED: ISOS10TA2 PO (15:14)
--- NOTE | 2025-03-18 15:18 | HMCIMG ---
EXAM: CT Head Without Intravenous Contrast. CLINICAL HISTORY: History of intracranial hemorrhage; evaluation for interval change. TECHNIQUE: Axial computed tomography images of the brain were obtained without intravenous contrast, with coronal and sagittal reformations. Radiation dose reduction followed gw-dgk-ih-reasonably-achievable principles, including automatic exposure control, patient size???based tube current and tube potential modulation, and iterative reconstruction. CONTRAST: Without. COMPARISON: Noncontrast head computed tomography dated 03/18/2025 at 08:52 Eastern Daylight Time. FINDINGS: BRAIN: Stable large nlvvt-kz-jdyptso left convexity subdural hematoma, again seen, involving the frontal, parietal, and temporal regions with maximal thickness of approximately 1.8 centimeters. There is marked mass effect with effacement of adjacent cortical sulci, effacement of the left lateral ventricle, and approximately 1.6 centimeters of rightward midline shift. Associated right subfalcine herniation and mild left uncal herniation are present. Hypodense changes within the deep white matter of the left cerebral hemisphere consistent with vasogenic edema adjacent to the hematoma. No large territorial infarction identified on this noncontrast study. No acute intraparenchymal hemorrhage. No mass lesion. Brainstem and cerebellum are unremarkable. VENTRICLES: Right lateral ventricular size is within expected limits for age; left lateral ventricle is effaced. Left basal cisternal spaces are effaced; right cisternal spaces remain patent. No hydrocephalus. ORBITS: Orbital contents are within normal noncontrast computed tomography limits. SINUSES AND MASTOIDS: Air fluid level in left sphenoid sinus consistent with sinusitis. The remaining paranasal sinuses and mastoid air cells are clear and well aerated bilaterally. SOFT TISSUES: No significant facial or scalp soft tissue swelling evident. No radiopaque foreign body is seen. BONES: No acute calvarial fracture identified. IMPRESSION: 1. Stable large gzune-fw-cvponqd left convexity subdural hematoma with 1.6 cm rightward midline shift, causing right subfalcine herniation and mild left uncal herniation. 2. Vasogenic edema in the left cerebral hemisphere adjacent to the hematoma. 3. Incidental paranasal sinus disease as detailed in the report body.EXAM: CT Head Without Intravenous Contrast. CLINICAL HISTORY: History of intracranial hemorrhage; evaluation for interval change. TECHNIQUE: Axial computed tomography images of the brain were obtained without intravenous contrast, with coronal and sagittal reformations. Radiation dose reduction followed mh-lvn-kp-reasonably-achievable principles, including automatic exposure control, patient size???based tube current and tube potential modulation, and iterative reconstruction. CONTRAST: Without. COMPARISON: Noncontrast head computed tomography dated 03/18/2025 at 08:52 [place] Daylight Time. FINDINGS: BRAIN: Stable large kmjrz-ci-bqbowhd left convexity subdural hematoma, again seen, involving the frontal, parietal, and temporal regions with maximal thickness of approximately 1.8 centimeters. There is marked mass effect with effacement of adjacent cortical sulci, effacement of the left lateral ventricle, and approximately 1.6 centimeters of rightward midline shift. Associated right subfalcine herniation and mild left uncal herniation are present. Hypodense changes within the deep white matter of the left cerebral hemisphere consistent with vasogenic edema adjacent to the hematoma. No large territorial infarction identified on this noncontrast study. No acute intraparenchymal hemorrhage. No mass lesion. Brainstem and cerebellum are unremarkable. VENTRICLES: Right lateral ventricular size is within expected limits for age; left lateral ventricle is effaced. Left basal cisternal spaces are effaced; right cisternal spaces remain patent. No hydrocephalus. ORBITS: Orbital contents are within normal noncontrast computed tomography limits. SINUSES AND MASTOIDS: Air fluid level in left sphenoid sinus consistent with sinusitis. The remaining paranasal sinuses and mastoid air cells are clear and well aerated bilaterally. SOFT TISSUES: No significant facial or scalp soft tissue swelling evident. No radiopaque foreign body is seen. BONES: No acute calvarial fracture identified. IMPRESSION: 1. Stable large rkzdz-mt-gmkpjpk left convexity subdural hematoma with 1.6 cm rightward midline shift, causing right subfalcine herniation and mild left uncal herniation. 2. Vasogenic edema in the left cerebral hemisphere adjacent to the hematoma. 3. Incidental paranasal sinus disease as detailed in the report body. /[place]
--- NOTE | 2025-03-18 15:35 | NUR ---
SPEECH TRIGGER COMPLETED / SUBDURAL HEMATOMA Patient is an 85 year old male admitted with shortness of breath with past medical history of htn, cad, stenosis, and hypothyroidism. Patient presented with subdural hematoma with rightward midline shift as per most recent head CT completed during this admission. Patient is currently NPO pending surgery as per nurse Lucia. Please consult speech therapy services if any s/s of aspiration occur once patient has started oral intake. All questions answered. [facility] will follow up. Addendum: 03/18/25 at 1618 by CAMILO [facility] Amended: Links added.
--- NOTE | 2025-03-18 15:37 | NUR ---
DCP: HOME sw met with pt and friend at bedside. Pt reports he is retired, and remains very independent, drives. Pt states he requires no assistance with completing his ADLS, or ambulation. Pt has no DME, provider or H services at this time. PCP is Lilia Vuong and uses he [facility] for rx. Pt denied need for SNF, states he will return home at [place]. Addendum: 03/18/25 at 1541 by CODY KUNZ SS Amended: Links added.
--- NOTE | 2025-03-18 22:14 | CONS ---
[facility] CONSULTATION NOTE Date Patient Seen: Mar 18, 2025 Time of Visit: 14:00 Supervising Physician: Yg Agustin MD Reason for Consultation: [facility] Primary Care Physician: Tiesha Vuong Outpatient Specialists: [ ] Inpatient Consults: [facility] neurosurgery Attending Dr Christianson PROBLEM LIST: Acute on chronic Subdural hematoma w/ midline shift 1.6 cm to the right POA Hypertensive emergency, POA Normocytic anemia, POA Hyperglycemia, POA Comorbidities: Hyperlipidemia Zenker's diverticulum Hiatal hernia Hypothyroidism Coronary artery disease status post CABG x2 with JETER to the LAD and saphenous vein graft to the diagonal1 April 2019 Aortic stenosis status post TAVR with an Gonzalez Lifescience 26 mm TAVR valve 09/05/2024 2/2 grafts patent by follow-up cardiac catheterization June 2024 Normal LV systolic function with an LVEF of 55-60% by prior 2D echocardiogram Edcg-fr-qjezdskf infrapopliteal peripheral artery disease HPI: This is an 85-year-old male with a past medical history of CABG x2 in 2018, aortic stenosis status post TAVR with tissue valve in September of 2024, hypertension, hypothyroidism, hiatal hernia, Zenker's diverticulum, and diastolic heart failure with EF of 55-60% who presented to the ED for evaluation of frontal headache for the last two weeks. Patient reports this morning when he woke up he felt he had poor balance and "foggy" brain. On presentation to the ED patient underwent CT of the head which shows acute on chronic subdural hematoma with maximum thickness of 1.8 cm in long the left frontal. Two temporary convexity. Midline shift of 1.6 cm to the right, resulting pump right subfalcine herniation and left mid uncal herniation. Dr Norberto miranda was consulted. On laboratory he was negative for COVID flu and strep. White count was normal with a H&H of 10.9/32.9 neutrophils of 82.5. Chemistry creatinine was 1.2 GFR of 68 glucose 117 mg/dL with a BUN 23 hemoglobin A1c was 5.0. Troponin was negative. Chest x-ray showed no acute cardiopulmonary findings. In the ED he was given 1 L of NS, 1000 mg of Tylenol p.o., dexamethasone 4 mg IV x1, managed toe 19 g IV one which decreased pt's headache to 1/10. On assessment patient is awake alert and oriented x3 denies any nausea vomiting or dizziness at this time. Blood pressure has been controlled with Cardene drip currently 133/82 with a map of 99. He has been admitted tot he ICU and were consulted for ccm. PAST MEDICAL HX: see above PAST SURGICAL HX: noncontributory SOCIAL HISTORY: No tobacco, ETOH, or illicit drug use Uncoded Allergies: SULFA (Allergy, Unknown, 11/05/18) REVIEW OF SYSTEMS: 12 point ROS reviewed with patient. Pertinent positives mentioned above. Otherwise negative. PHYSICAL EXAM: GENERAL: alert, weak, awake oriented x 3 HEENT: EOMI, Sclera non icteric, moist mucosa NECK: Supple, no JVD, trachea midline LUNGS: Clear breath sounds bilaterally. No wheezes HEART: Regular rate and rhythm. Normal S1 and S2, without murmurs ABD: Abdomen soft, nontender. Bowel sounds present EXT: No clubbing cyanosis or edema NEURO: Alert and oriented to person, follows commands Vital Signs (last 8hr) Date Time Temp Pulse Resp B/P (MAP) Pulse Ox O2 Delivery O2 Flow Rate FiO2 03/18/25 21:10 70 13 139/60 (86) 95 03/18/25 20:39 82 14 161/70 (100) 95 03/18/25 20:24 83 12 141/75 (97) 96 03/18/25 20:10 84 17 131/90 (104) 97 03/18/25 19:54 65 13 142/45 (77) 96 03/18/25 19:39 65 13 137/73 (94) 94 03/18/25 19:37 95 Room Air* 0 21 03/18/25 19:33 98.1 03/18/25 19:24 63 13 138/57 (84) 94 03/18/25 19:09 66 12 141/101 (114) 93 03/18/25 18:30 71 16 131/99 (110) 96 03/18/25 18:00 68 16 150/64 (92) 98 03/18/25 17:45 69 12 140/78 (98) 97 03/18/25 17:30 69 14 144/76 (98) 97 03/18/25 17:15 78 14 150/78 (102) 97 03/18/25 17:00 78 14 155/83 (107) 97 03/18/25 16:45 69 12 145/88 (107) 98 03/18/25 16:30 76 12 146/89 (108) 98 03/18/25 16:15 71 12 144/71 (95) 98 03/18/25 16:00 98.1 68 11 140/69 (92) 96 03/18/25 15:45 77 12 145/71 (95) 98 03/18/25 15:30 66 8 144/70 (94) 99 03/18/25 15:24 99 Room Air* 0 21 03/18/25 15:15 69 13 132/68 (89) 98 03/18/25 15:00 67 15 141/61 (87) 95 03/18/25 14:45 70 11 123/43 (69) 99 03/18/25 14:30 76 13 140/72 (94) 96 03/18/25 14:15 68 12 133/82 (99) 96 03/18/25 14:14 98.1 62 15 144/51 (82) 97 03/18/25 14:07 189/91 LABS: Hematology Labs: Test 03/18/25 08:45 Range/Units White Blood Count 6.2 4.8-10.8 K/uL Red Blood Count 3.61 L 4.50-6.20 MIL/uL Hemoglobin 10.9 L 14.0-18.0 g/dL Hematocrit 32.9 L 42-54 % Mean Corpuscular Volume 91.1 79-99 fL Mean Corpuscular Hemoglobin 30.2 27.0-33.0 pg Mean Corpuscular Hemoglobin Concent 33.1 32.0-36.0 g/dL Red Cell Distribution Width 13.2 11.0-15.5 % Platelet Count 159 130-400 K/uL Mean Platelet Volume 11.3 H 7.5-10.5 fL Immature Granulocyte % (Auto) 0.3 0-1 % Neutrophils (%) (Auto) 82.5 H 40.0-77.0 % Lymphocytes (%) (Auto) 8.7 L 21.0-51.0 % Monocytes (%) (Auto) 6.6 3.0-13.0 % Eosinophils (%) (Auto) 1.3 0.0-8.0 % Basophils (%) (Auto) 0.6 0.0-5.0 % Neutrophils # (Auto) 5.1 1.8-7.7 K/uL Lymphocytes # (Auto) 0.5 L 1.0-4.8 K/uL Monocytes # (Auto) 0.4 0.1-1.0 K/uL Eosinophils # (Auto) 0.08 0.00-0.70 K/uL Basophils # (Auto) 0.04 0.00-0.20 K/uL Absolute Immature Granulocyte (auto 0.02 0-1 K/uL Nucleated Red Blood Cells 0.0 0.0-0.19 % White Cell Morphology Comment See comments Chemistry Labs: Test 03/18/25 08:45 Range/Units Sodium Level 141 136-145 mmol/L Potassium Level 4.1 3.5-5.1 mmol/L Chloride Level 103 101-111 mmol/L Carbon Dioxide Level 29 21-32 mmol/L Blood Urea Nitrogen 23 H 7-18 mg/dL Creatinine 1.2 0.5-1.3 mg/dL Glomerular Filtration Rate Calc 60 >90 mL/min Random Glucose 117 H 70-105 mg/dL Hemoglobin A1c 5.0 4.0-6.0 % Estimated Average Glucose (eAG) 97 70-126 mg/dL Total Calcium 9.4 8.5-10.1 mg/dL Troponin I High Sensitivity 24 4-75 ng/L DIAGNOSTICS / RADIOLOGY RESULTS: [ [address] [address] IMAGING REPORT Addendum PATIENT: ORVILLE DELACRUZ MR#: [id number] : 1940 SEX: M AGE: 85 LOCATION: [facility]IP ORDER 0 STATUS: ADM IN REPORT#: [id number] SERVICE 8 REASON: frontal headache ORDERING PHYSICIAN: MARIELA MENCHACA MD PROCEDURE: HEAD WO - CT HEAD/BRAIN W/O CONTRAST ADDENDUM REPORT ADDENDUM: Results were shared by telephone at 11:36 am on 03-18-25 and acknowledged by Mariela Britton /[facility] EXAM: CT Head Without IV contrast. CLINICAL HISTORY: frontal headache TECHNIQUE: Axial computed tomography images of the head/brain without intravenous contrast. COMPARISON: None provided. FINDINGS: Acute and chronic subdural hematoma with a maximum thickness of 1.8 cm along the left erhidu-awpzlzz-pwkhiplo convexity, exerting mass effect in the surrounding sulci and causing a midline shift of 1.6 cm to the right, resultant right subfalcine herniation and left mild uncal herniation. Hypodensities within the deep white matter of the left cerebral convexity suggesting vasogenic edema. The brain stem and cerebellum are otherwise unremarkable. Right cerebral ventricles are normal for age. Left cerebral ventricles are effaced. Left cisternal spaces are effaced. Right cisternal spaces are normal for age. There are no abnormalities in the cerebellopontine angle areas on both sides. Bilateral mastoid air cells and the paranasal sinuses are clear and pneumatized. The orbital contents are unremarkable. No evidence of any obvious fracture seen. There are no abnormalities in the calvarium. IMPRESSION: Acute and chronic subdural hematoma with a maximum thickness of 1.8 cm along the left rkchwu-bcwsogg-gslsfgoi convexity. Midline shift of 1.6 cm to the right, resultant right subfalcine herniation and left mild uncal herniation. /[facility] DICTATED BY: DEX MOBLEY Jr., MD DATE: 03/18/25 1142 ELECTRONICALLY SIGNED BY: DATE: EXAM: CT Head Without IV contrast. CLINICAL HISTORY: frontal headache TECHNIQUE: Axial computed tomography images of the head/brain without intravenous contrast. COMPARISON: None provided. FINDINGS: Acute and chronic subdural hematoma with a maximum thickness of 1.8 cm along the left openhs-yexbnxz-umiutpot convexity, exerting mass effect in the surrounding sulci and causing a midline shift of 1.6 cm to the right, resultant right subfalcine herniation and left mild uncal herniation. Hypodensities within the deep white matter of the left cerebral convexity suggesting vasogenic edema. The brain stem and cerebellum are otherwise unremarkable. Right cerebral ventricles are normal for age. Left cerebral ventricles are effaced. Left cisternal spaces are effaced. Right cisternal spaces are normal for age. There are no abnormalities in the cerebellopontine angle areas on both sides. Bilateral mastoid air cells and the paranasal sinuses are clear and pneumatized. The orbital contents are unremarkable. No evidence of any obvious fracture seen. There are no abnormalities in the calvarium. IMPRESSION: Acute and chronic subdural hematoma with a maximum thickness of 1.8 cm along the left iaihun-ppopgej-vpbdoupf convexity. Midline shift of 1.6 cm to the right, resultant right subfalcine herniation and left mild uncal herniation. /[facility] DICTATED BY: DEX MOBLEY Jr., MD DATE: 03/18/251130 ELECTRONICALLY SIGNED BY: DEX MOBLEY Jr., MD DATE: 03/18/251130 ] [place] [address] IMAGING REPORT Signed PATIENT: ORVILLE DELACRUZ MR#: [id number] : 1940 SEX: M AGE: 85 LOCATION: [facility]IP ORDER 0 [facility]: [facility] RE[facility]#: [id number] SERVICE 8 REASON: cp ORDERING PHYSICIAN: MARIELA MENCHACA MD PROCEDURE: CXR1VW - CHEST 1VW EXAM: CR Chest, 1 View. CLINICAL HISTORY: cp COMPARISON: Radiograph dated June 12, 2024 FINDINGS: LUNGS: The lungs show no infiltrate or other acute finding. PLEURAL SPACES: No evidence of pleural effusion or pneumothorax. MEDIASTINUM: Prior sternotomy. Aortic valve replacement. Heart size is stable. Pulmonary vessels are within normal limits. BONES: No aggressive appearing osseous lesion seen. IMPRESSION: 1. No acute cardiopulmonary findings. /[facility] DICTATED BY: DEX MOBLEY Jr., MD DATE: 03/18/251127 ELECTRONICALLY SIGNED BY: DEX MOBLEY Jr., MD DATE: 03/18/251127 PLAN consult neurosurgery and follow recommendations hourly neuro checks airway management if needed 1 unit of Platelets due to pt on plavix at home Repeat CT head without contrast 6 hours after initial imaging SBP Goal < 140 Cardene gtt mannitol or 3% if pt w/ s/s of increased ICP NEURO: Minimize central acting medications as possible. Fall Precautions. Well lighted room through the day and minimize interruptions through the night to prevent acute delirium. PULMONARY: Supplemental 02 as needed Titrate Fio2 to keep Spo2 > or = 90% DuoNebs and CPT as needed IS hourly while awake for pulmonary hygiene Out of bed to chair as tolerated CARDIOVASCULAR: Follow hemodynamics. Titrate vasopressor to keep MAP >65 or systolic blood pressure >95mmHg DRIPS: cardene LINES: piv GI & NUTRITION: Continue nutritional support Aspirations precautions Prokinetic agents and laxatives as needed KIDNEYS & ELECTROLYTES: Strict monitoring of intake and output Daily weights Avoid nephrotoxic agents Monitor electrolytes and replace as needed Goal urine output of 30mL/hr or 0.5mL/kg/hr Urine output: [ ] Fluid Balance: [ ] ENDOCRINE: Maintain blood glucose between 100-180 at all times. Insulin sliding scale for blood glucose management INFECTIOUS DISEASE: Trend temperature. Leyva-culture if febrile. Micro: [ ] Antibiotics: [ ] HEMATOLOGY & COAGULATION: Monitor H&H. Keep Hgb > 7 Transfuse 1 unit of PRBC for Hgb < 7 Transfuse 1 pack of platelets of platelets < 20, 000 Watch for any signs and symptoms of bleeding SKIN: Pressure ulcer prevention per facility protocol Rehab: PT/OT Prophylaxis: GI: [ protonix] DVT: [ scd] Code Status: Full Resuscitation Disposition: [icu ] Other: Total patient care time exceeds 35 minutes excluding all procedures. Case was discussed and seen with my supervising physician. The above plan was formulated and agreed upon. ATTESTATION BY PHYSICIAN The patient has been seen and evaluated, the case has been discussed with the SLIP MAKER, I agree with the clinical findings and plan of care. Yg Agustin MD, [facility] Mar 18, 2025 22:14
--- NOTE | 2025-03-18 22:56 | NUR ---
CRITICAL CARE NOTIFIED COPY MANAGER PATIENT HAS MODERATE ANXIETY AND IS INCREASING. PATIENT IS RESTLESS. PATIENT TAKES ESCITALOPRAM OXALATE 10MG PO DAILY. PATIENT STATES HE HAS ANXIETY ISSUES. PER COPY MANAGER OK FOR ONE TIME DOSE. PER PHARMACY CITALOPRAM 20MG IS SUBSTITUTED
[2025-03-19] VITALS (81 sets, daily range): BP systolic 118–173; BP diastolic 36–114; PULSE 58–110; RESP 10–22; TEMP 97.2–98.2; O2SAT 95
--- NOTE | 2025-03-19 03:30 | EKG ---
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
--- NOTE | 2025-03-19 04:13 | HP ---
DATE OF SERVICE: 03/18/2025 PRESENTING COMPLAINT: Headache and confusion. HISTORY OF PRESENT ILLNESS: An 85-year-old male with history of hypertension, dyslipidemia, hypothyroidism, coronary artery disease, aortic stenosis, presented to the hospital with the above complaint. The patient claims he has been for about 1 week. Came to the emergency room where CAT scan was done which shows acute on chronic left subdural hematoma. The patient has also been found with elevated systolic blood pressure of 198 in the Emergency Room. The patient was started on IV drip and admitted to ICU. The patient is discussed by ER physician with the Neurosurgery calibration technician. The patient is on aspirin and Plavix, which has been placed on hold. PAST MEDICAL HISTORY: * Hypertension. * Dyslipidemia. * Hypothyroidism. * Coronary artery disease. * Aortic stenosis. * Hiatal hernia. * Peripheral vascular disease. PAST SURGICAL HISTORY: * CABG. * LVAD. * Cardiac catheterization. ALLERGIES: SULFA. HOME MEDICATIONS: Reviewed. SOCIAL HISTORY: Lives with . No alcohol, tobacco or illicit drug use. PHYSICAL EXAMINATION: GENERAL: An elderly male, awake. VITAL SIGNS: Temperature 97.5, pulse 50, respirations 16, blood pressure 190/64. EYES: No icterus. Pupils equal round and reactive. HENT: No oral thrush seen. Moist oral mucosa. NECK: Supple. No JVD or thyromegaly. LUNGS: Good air entry. No rales. No rhonchi. CARDIOVASCULAR SYSTEM: S1, S2 regular. No murmur heard. ABDOMEN: Full, soft, nontender. Bowel sound is present. CENTRAL NERVOUS SYSTEM: Awake, alert, oriented x3. No focal deficits. SKIN: No rashes. No itchiness. LYMPHATIC: No peripheral lymphadenopathy. BACK: No deformity, no pressure ulcer. MUSCULOSKELETAL: No joint swelling, erythema or tenderness. LABORATORY DATA: Sodium 141, potassium 4.1. BUN 23, creatinine 1.2, WBC 6.2, hemoglobin 10.9, platelets 15.9. RADIOLOGY: CT of brain, results reviewed. ASSESSMENT: An 85-year-old male who presented with headache and confusion. Current problems include: * Non-traumatic subdural hematoma. * Hypertensive urgency. * Hypothyroidism. * Headache. * Obesity. * Aortic stenosis. * Dyslipidemia. PLAN: * Admit the patient to ICU. * Continue . * Continue Synthroid. * Monitor electrolytes and correct as needed. * Continue antiemetics. * Continue nutritional support. * Antiplatelet such as Plavix will be placed on hold in anticipation for possible surgery. Thank you for allowing me to participate in the care of this patient. TID: [id number] RECEIPT: [id number]
[2025-03-19 04:35] LABS: IMMATURE GRANULOCYTE ABSOLUTE 0.04 K/uL (0-1); NUCLEATED RED BLOOD CELLS 0.0 % (0.0-0.19); PLATELET COUNT (AUTO) 166 K/uL (130-400); RED BLOOD CELL COUNT(AUTO) 3.61 MIL/uL (4.50-6.20); RED CELL DISTRIBUTION WIDTH 13.0 % (11.0-15.5); WHITE BLOOD COUNT (AUTO) 9.1 K/uL (4.8-10.8)
[2025-03-19 04:45] LABS: CREATININE 1.0 mg/dL (0.5-1.3); GLOMERULAR FILTR. RATE CALC 75.0 mL/min (>90); GLUCOSE,RANDOM 128.0 mg/dL (70-105); SODIUM SERUM 137.0 mmol/L (136-145); UREA NITROGEN, BLOOD 25.0 mg/dL (7-18)
--- NOTE | 2025-03-19 07:54 | PN ---
PROGRESS NOTE PROBLEM LIST: Subdural hematoma along temporoparietal lobe with midline shift Hypertensive emergency on presentation Hypertension Dyslipidemia Zenker's diverticulum Hiatal hernia Hypothyroidism Coronary artery disease status post CABG x2 with JETER to the LAD and saphenous vein graft to the diagonal1 April 2019 Aortic stenosis status post TAVR with an Gonzalez Lifescience 26 mm TAVR valve 09/05/2024 2/2 grafts patent by follow-up cardiac catheterization June 2024 Normal LV systolic function with an LVEF of 55-60% by prior 2D echocardiogram Hbzk-dj-ukudpuer infrapopliteal peripheral artery disease INTERIM HISTORY OF PRESENT ILLNESS: Patient came in with hypertensive urgency and headache and above was noted. He has been seen by Dr. Thornton and plan will be for surgery probably this Tuesday once clopidogrel has worn off. Patient has been maintained on a Cardene drip. Patient's home medications have not been reinstituted. They have been reviewed. REVIEW OF SYSTEMS: No fever, headache, chest pain, abdominal pain, nausea, vomiting, or diarrhea. VITAL SIGNS Vital Signs Date Time Temp Pulse Resp B/P (MAP) Pulse Ox O2 Delivery O2 Flow Rate FiO2 03/19/25 04:39 98 20 151/97 (115) 96 03/19/25 04:00 98.1 03/19/25 00:00 Room Air* 0 21 Laboratory Tests 03/18/25 08:45 03/19/25 04:24 LABS/MEDS Laboratory Tests Test 03/18/25 08:32 03/18/25 08:45 03/18/25 08:56 03/18/25 22:08 Urine Color YELLOW (YELLOW) Urine Appearance CLEAR (CLEAR) Urine pH 5.5 (5.0-8.0) Urine Specific [place] 1.021 (1.001-1.031) Urine Protein 70 mg/dL (NEGATIVE) H Urine Glucose (UA) NEGATIVE mg/dL (NEGATIVE) Urine Ketones NEGATIVE mg/dL (NEGATIVE) Urine Occult Blood +- (TRACE) (NEGATIVE) H Urine Nitrate NEGATIVE (NEGATIVE) Urine Bilirubin NEGATIVE mg/dL (NEGATIVE) Urine Urobilinogen 0.2 mg/dL (0.2-1.0) Urine Leukocyte Esterase NEGATIVE Doreen/uL Urine RBC 2-5 /HPF (0-1) H Urine WBC 2-5 /HPF (0-1) H Urine Squamous Epithelial Cells Rare /HPF (0-2) Urine Bacteria None Seen /HPF (None Seen) White Blood Count 6.2 K/uL (4.8-10.8) Red Blood Count 3.61 MIL/uL (4.50-6.20) L Hemoglobin 10.9 g/dL (14.0-18.0) L Hematocrit 32.9 % (42-54) L Mean Corpuscular Volume 91.1 fL (79-99) Mean Corpuscular Hemoglobin 30.2 pg (27.0-33.0) Mean Corpuscular Hemoglobin Concent 33.1 g/dL (32.0-36.0) Red Cell Distribution Width 13.2 % (11.0-15.5) Platelet Count 159 K/uL (130-400) Mean Platelet Volume 11.3 fL (7.5-10.5) H Immature Granulocyte % (Auto) 0.3 % (0-1) Neutrophils (%) (Auto) 82.5 % (40.0-77.0) H Lymphocytes (%) (Auto) 8.7 % (21.0-51.0) L Monocytes (%) (Auto) 6.6 % (3.0-13.0) Eosinophils (%) (Auto) 1.3 % (0.0-8.0) Basophils (%) (Auto) 0.6 % (0.0-5.0) Neutrophils # (Auto) 5.1 K/uL (1.8-7.7) Lymphocytes # (Auto) 0.5 K/uL (1.0-4.8) L Monocytes # (Auto) 0.4 K/uL (0.1-1.0) Eosinophils # (Auto) 0.08 K/uL (0.00-0.70) Basophils # (Auto) 0.04 K/uL (0.00-0.20) Absolute Immature Granulocyte (auto 0.02 K/uL (0-1) Nucleated Red Blood Cells 0.0 % (0.0-0.19) White Cell Morphology Comment See comments Sodium Level 141 mmol/L (136-145) Potassium Level 4.1 mmol/L (3.5-5.1) Chloride Level 103 mmol/L (101-111) Carbon Dioxide Level 29 mmol/L (21-32) Blood Urea Nitrogen 23 mg/dL (7-18) H Creatinine 1.2 mg/dL (0.5-1.3) Glomerular Filtration Rate Calc 60 mL/min (>90) Random Glucose 117 mg/dL (70-105) H Hemoglobin A1c 5.0 % (4.0-6.0) Estimated Average Glucose (eAG) 97 mg/dL (70-126) Total Calcium 9.4 mg/dL (8.5-10.1) Troponin I High Sensitivity 24 ng/L (4-75) Influenza Type A Antigen Negative For Type A Influenza Type B Antigen Negative For Type B SARS-CoV-2, RNA, NAAT NEGATIVE SARS CoV-2 Group A Streptococcus Rapid negative (NEGATIVE) Whole Blood Glucose 119 MG/DL (70-110) H Test 03/19/25 04:24 03/19/25 07:08 White Blood Count 9.1 K/uL (4.8-10.8) # Red Blood Count 3.61 MIL/uL (4.50-6.20) L Hemoglobin 10.6 g/dL (14.0-18.0) L Hematocrit 32.0 % (42-54) L Mean Corpuscular Volume 88.6 fL (79-99) Mean Corpuscular Hemoglobin 29.4 pg (27.0-33.0) Mean Corpuscular Hemoglobin Concent 33.1 g/dL (32.0-36.0) Red Cell Distribution Width 13.0 % (11.0-15.5) Platelet Count 166 K/uL (130-400) Mean Platelet Volume 11.2 fL (7.5-10.5) H Immature Granulocyte % (Auto) 0.4 % (0-1) Neutrophils (%) (Auto) 93.7 % (40.0-77.0) H Lymphocytes (%) (Auto) 3.4 % (21.0-51.0) L Monocytes (%) (Auto) 2.4 % (3.0-13.0) L Eosinophils (%) (Auto) 0.0 % (0.0-8.0) Basophils (%) (Auto) 0.1 % (0.0-5.0) Neutrophils # (Auto) 8.6 K/uL (1.8-7.7) H Lymphocytes # (Auto) 0.3 K/uL (1.0-4.8) L Monocytes # (Auto) 0.2 K/uL (0.1-1.0) Eosinophils # (Auto) 0.00 K/uL (0.00-0.70) Basophils # (Auto) 0.01 K/uL (0.00-0.20) Absolute Immature Granulocyte (auto 0.04 K/uL (0-1) Nucleated Red Blood Cells 0.0 % (0.0-0.19) Sodium Level 137 mmol/L (136-145) Potassium Level 4.3 mmol/L (3.5-5.1) Chloride Level 104 mmol/L (101-111) Carbon Dioxide Level 25 mmol/L (21-32) Blood Urea Nitrogen 25 mg/dL (7-18) H Creatinine 1.0 mg/dL (0.5-1.3) Glomerular Filtration Rate Calc 75 mL/min (>90) Random Glucose 128 mg/dL (70-105) H Total Calcium 8.8 mg/dL (8.5-10.1) Whole Blood Glucose 129 MG/DL (70-110) H Current Medications Sodium Chloride 1,000 ml @ 0 mls/hr ONCE ONCE IV Last administered on 03/18/25at 09:38; Start 03/18/25 at 08:30; Stop 03/18/25 at 08:31; Status DC Acetaminophen 1,000 mg ONCE ONCE PO Last administered on 03/18/25at 09:37; Start 03/18/25 at 08:30; Stop 03/18/25 at 08:31; Status DC Dexamethasone Sodium Phosphate 4 mg ONCE ONCE IV Last administered on 03/18/25at 11:14; Start 03/18/25 at 10:00; Stop 03/18/25 at 10:01; Status DC Nicardipine HCl 25 mg/Sodium Chloride 250 ml @ 0 mls/hr PROTOCOL IV Last administered on 03/19/25at 06:07; Start 03/18/25 at 10:00; Stop 04/17/25 at 09:59 Mannitol 19 gm ONCE ONCE IV Last administered on 03/18/25at 11:16; Start 03/18/25 at 10:30; Stop 03/18/25 at 10:31; Status DC Acetaminophen 650 mg Q4H PRN PO; Start 03/18/25 at 10:30; Stop 04/17/25 at 10:29 Ondansetron HCl 4 mg Q6H PRN IVP; Start 03/18/25 at 10:30; Stop 04/17/25 at 10:29 Insulin Human Regular INSULIN SLIDING SCAL... ACHS SQ; Start 03/18/25 at 11:30; Stop 04/17/25 at 11:29 Alprazolam 0.25 mg ONCE ONCE PO Last administered on 03/18/25at 14:59; Start 03/18/25 at 12:30; Stop 03/18/25 at 12:31; Status DC Dexamethasone Sodium Phosphate 4 mg Q8H IV Last administered on 03/19/25at 05:32; Start 03/18/25 at 20:00; Stop 04/17/25 at 19:59 Citalopram Hydrobromide 20 mg ONCE ONCE PO Last administered on 03/18/25at 23:03; Start 03/18/25 at 23:00; Stop 03/18/25 at 23:01; Status DC Amlodipine Besylate 5 mg BID PO; Start 03/19/25 at 09:00; Stop 04/18/25 at 08:59; Status UNV Metoprolol Succinate 25 mg BID PO; Start 03/19/25 at 09:00; Stop 04/18/25 at 08:59; Status UNV PHYSICAL EXAMINATION: GENERAL: No acute distress. HEENT: Normocephalic, atraumatic. CARDIAC: Positive S1 and S2. Systolic murmur noted LUNGS: Clear to auscultation bilaterally. ABDOMEN: Bowel sounds present, soft, nontender. EXTREMITIES: No edema bilaterally. NEUROLOGIC: Cranial nerves 2-12 grossly intact. PSYCHIATRIC: Calm. TELEMETRY: Sinus rhythm ASSESSMENT: Subdural hematoma along temporoparietal lobe with midline shift Hypertensive emergency on presentation Hypertension Dyslipidemia Zenker's diverticulum Hiatal hernia Hypothyroidism Coronary artery disease status post CABG x2 with JETER to the LAD and saphenous vein graft to the diagonal1 April 2019 Aortic stenosis status post TAVR with an Gonzalez Lifescience 26 mm TAVR valve 09/05/2024 2/2 grafts patent by follow-up cardiac catheterization June 2024 Normal LV systolic function with an LVEF of 55-60% by prior 2D echocardiogram Kwhd-kw-zjskrizy infrapopliteal peripheral artery disease PLAN: Reinitiate amlodipine at 5 mg twice daily Reinitiate metoprolol succinate 25 mg twice daily Wean off Cardene drip Try and transfer out to telemetry unit Surgery hopefully Tuesday this week We will follow closely BRISEIDA ARANA MD Mar 19, 2025 07:53
[2025-03-19] MEDS: amLODIPine 5 MG TAB PO SCH (08:22)
--- NOTE | 2025-03-19 13:54 | PN ---
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 INTERVAL HISTORY: Patient was seen and examined, all labs and imaging have been reviewed, patient is sitting comfortably at bedside chair Talking with family members at bedside Reporting headache had subsided, no dizziness or blurred vision Blood pressure improved on nicardipine drip No chest pain shortness of breath Plan: DDVAP, 1 unit platelets Possible transfer for MMA embolization Pending neurosurgical recs Telemetry Neurovascular checks per protocol Stat CT with any neurological changes Follow coags Critical care time 46 minutes, this time excludes any time spent on education or procedures performed REVIEW OF SYSTEMS: 12 point ROS reviewed with patient. Pertinent positives mentioned above. Oth erwise negative. PHYSICAL EXAM: GENERAL: alert, weak, awake oriented x 3 HEENT: EOMI, Sclera non icteric, moist mucosa NECK: Supple, no JVD, trachea midline LUNGS: Clear breath sounds bilaterally. No wheezes HEART: Regular rate and rhythm. Normal S1 and S2, without murmurs ABD: Abdomen soft, nontender. Bowel sounds present EXT: No clubbing cyanosis or edema NEURO: Alert and oriented to person, follows commands Vital Signs (last 8hr) Date Time Temp Pulse Resp B/P (MAP) Pulse Ox O2 Delivery O2 Flow Rate FiO2 03/19/25 11:12 95 Room Air* 0 21 03/19/25 10:15 76 16 157/64 (95) 97 03/19/25 10:00 77 17 132/61 (84) 97 03/19/25 09:45 77 17 135/66 (89) 97 03/19/25 09:30 78 17 138/62 (87) 97 03/19/25 09:15 75 17 135/65 (88) 97 03/19/25 09:00 77 15 127/67 (87) 98 03/19/25 08:45 77 16 139/52 (81) 98 03/19/25 08:30 73 13 123/50 (74) 97 03/19/25 08:15 72 16 141/49 (79) 96 03/19/25 08:00 95 Room Air* 0 21 03/19/25 08:00 74 19 136/53 (80) 96 03/19/25 07:45 73 16 134/59 (84) 97 03/19/25 07:30 84 17 146/78 (100) 96 03/19/25 07:15 85 15 143/67 (92) 94 03/19/25 07:00 97.2 84 16 156/88 (110) 96 LABS: Hematology Labs: Test 03/19/25 04:24 03/18/25 08:45 Range/Units White Blood Count 9.1 # 4.8-10.8 K/uL Red Blood Count 3.61 L 4.50-6.20 MIL/uL Hemoglobin 10.6 L 14.0-18.0 g/dL Hematocrit 32.0 L 42-54 % Mean Corpuscular Volume 88.6 79-99 fL Mean Corpuscular Hemoglobin 29.4 27.0-33.0 pg Mean Corpuscular Hemoglobin Concent 33.1 32.0-36.0 g/dL Red Cell Distribution Width 13.0 11.0-15.5 % Platelet Count 166 130-400 K/uL Mean Platelet Volume 11.2 H 7.5-10.5 fL Immature Granulocyte % (Auto) 0.4 0-1 % Neutrophils (%) (Auto) 93.7 H 40.0-77.0 % Lymphocytes (%) (Auto) 3.4 L 21.0-51.0 % Monocytes (%) (Auto) 2.4 L 3.0-13.0 % Eosinophils (%) (Auto) 0.0 0.0-8.0 % Basophils (%) (Auto) 0.1 0.0-5.0 % Neutrophils # (Auto) 8.6 H 1.8-7.7 K/uL Lymphocytes # (Auto) 0.3 L 1.0-4.8 K/uL Monocytes # (Auto) 0.2 0.1-1.0 K/uL Eosinophils # (Auto) 0.00 0.00-0.70 K/uL Basophils # (Auto) 0.01 0.00-0.20 K/uL Absolute Immature Granulocyte (auto 0.04 0-1 K/uL Nucleated Red Blood Cells 0.0 0.0-0.19 % White Cell Morphology Comment See comments Chemistry Labs: Test 03/19/25 11:22 03/19/25 04:24 03/18/25 08:45 Range/Units Whole Blood Glucose 100 70-110 MG/DL Sodium Level 137 136-145 mmol/L Potassium Level 4.3 3.5-5.1 mmol/L Chloride Level 104 101-111 mmol/L Carbon Dioxide Level 25 21-32 mmol/L Blood Urea Nitrogen 25 H 7-18 mg/dL Creatinine 1.0 0.5-1.3 mg/dL Glomerular Filtration Rate Calc 75 >90 mL/min Random Glucose 128 H 70-105 mg/dL Total Calcium 8.8 8.5-10.1 mg/dL Hemoglobin A1c 5.0 4.0-6.0 % Estimated Average Glucose (eAG) 97 70-126 mg/dL Troponin I High Sensitivity 24 4-75 ng/L DIAGNOSTICS / RADIOLOGY RESULTS: [ ] PLAN NEURO: Minimize central acting medications as possible. Fall Precautions. Well lighted room through the day and minimize interruptions through the night to prevent acute delirium. PULMONARY: Supplemental 02 as needed Titrate Fio2 to keep Spo2 > or = 90% DuoNebs and CPT as needed IS hourly while awake for pulmonary hygiene Out of bed to chair as tolerated CARDIOVASCULAR: Follow hemodynamics. Titrate vasopressor to keep MAP >65 or systolic blood pressure >95mmHg DRIPS: cardene LINES: piv GI & NUTRITION: Continue nutritional support Aspirations precautions Prokinetic agents and laxatives as needed KIDNEYS & ELECTROLYTES: Strict monitoring of intake and output Daily weights Avoid nephrotoxic agents Monitor electrolytes and replace as needed Goal urine output of 30mL/hr or 0.5mL/kg/hr Urine output: [ ] Fluid Balance: [ ] ENDOCRINE: Maintain blood glucose between 100-180 at all times. Insulin sliding scale for blood glucose management INFECTIOUS DISEASE: Trend temperature. Leyva-culture if febrile. Micro: [ ] Antibiotics: [ ] HEMATOLOGY & COAGULATION: Monitor H&H. Keep Hgb > 7 Transfuse 1 unit of PRBC for Hgb < 7 Transfuse 1 pack of platelets of platelets < 20, 000 Watch for any signs and symptoms of bleeding SKIN: Pressure ulcer prevention per facility protocol Rehab: PT/OT Prophylaxis: GI: [ protonix] DVT: [ scd] Code Status: Full Resuscitation Disposition: [icu ] Case was discussed and seen with my supervising physician. The above plan was formulated and agreed upon. ORVILLE HICKMAN PAC Mar 19, 2025 13:54
[2025-03-20] VITALS (68 sets, daily range): BP systolic 107–155; BP diastolic 47–112; PULSE 58–99; RESP 7–80; TEMP 97.5–98.4; O2SAT 97–98
[2025-03-20 04:57] LABS: NUCLEATED RED BLOOD CELLS 0.0 % (0.0-0.19); PLATELET COUNT (AUTO) 168.0 K/uL (130-400); RED BLOOD CELL COUNT(AUTO) 3.35 MIL/uL (4.50-6.20); RED CELL DISTRIBUTION WIDTH 13.4 % (11.0-15.5); WHITE BLOOD COUNT (AUTO) 14.8 K/uL (4.8-10.8)
[2025-03-20 05:07] LABS: INR 1.08 (0.85-1.15)
[2025-03-20 05:19] LABS: ASPARTATE AMINOTRANSFERASE 59.0 U/L (10-37); CREATININE 1.1 mg/dL (0.5-1.3); GLOMERULAR FILTR. RATE CALC 67.0 mL/min (>90); GLUCOSE,RANDOM 118.0 mg/dL (70-105); SODIUM SERUM 138.0 mmol/L (136-145); TOTAL PROTEIN, SERUM 6.6 g/dL (6.0-8.3); UREA NITROGEN, BLOOD 44.0 mg/dL (7-18)
--- NOTE | 2025-03-20 07:22 | NUR ---
PT CARE Blood sugar not checked - pt is not diabetic and has not required insulin coverage. A1C is WNL. Will clarify order with physician on rounds.
--- NOTE | 2025-03-20 12:03 | PN ---
INFECTIOUS DISEASE PROGRESS NOTE Date of Service: Mar 20, 2025 SUBJECTIVE: This is a 85-year-old male patient who came to the hospital with chief complaint of headache and weakness. A CT of the head was obtained on admission and patient was found with subdural hematoma. Neurosurgeon has evaluated patient and at this time patient is scheduled for a spenser hole procedure for this week. Today patient was seen and examined at bedside in the ICU room 217 and patient is awake, alert and oriented x3. Stated the headache is off and on. Denying nausea or vomiting. Patient was instructed not to get out of bed by himself. WBC is slightly elevated at 14.8, patient however remains on IV steroids and no fever reported, temperature is 97.7. Will continue to follow patient's care. PHYSICAL EXAM EYES: Anicteric. Pupils equal and reactive. HENT: No oral thrush seen, moist Oral mucosa. Headache. NECK: Supple, no JVD or thyromegaly. LUNGS: Good air entry. No rales, no rhonchi. CARDIOVASCULAR: S1, S2 regular. No murmur heard. ABDOMEN: Soft, non tender, bowel sounds present, no organomegaly. CENTRAL NERVOUS SYSTEM: Awake, alert, oriented x 3. SKIN: No rashes, no swelling. LYMPHATICS: No peripheral lymphadenopathy. MUSCULOSKELETAL: No joint swelling, erythema or tenderness. EXTREMITIES: No cyanosis or clubbing. Weakness. BACK: No deformity, no pressure ulcer. GENITOURINARY: No dysuria or hematuria. Vital Sign (Last 12 Hours) 03/20/25 03/20/25 03/20/25 03/20/25 00:08 00:48 00:56 01:09 Pulse 87 77 70 67 Resp 20 18 19 14 B/P (MAP) 143/64 (90) 133/63 (86) 129/73 (91) 131/62 (85) Pulse Ox 98 96 97 95 03/20/25 03/20/25 03/20/25 03/20/25 01:24 01:39 01:54 02:11 Pulse 99 65 84 84 Resp 12 14 15 17 B/P (MAP) 121/54 (76) 139/57 (84) 154/75 (101) 146/68 (94) Pulse Ox 95 96 95 96 03/20/25 03/20/25 03/20/25 03/20/25 02:24 02:30 02:39 02:54 Pulse 61 65 65 Resp 15 13 14 B/P (MAP) 128/50 (76) 154/75 135/79 (97) 135/66 (89) Pulse Ox 94 92 95 03/20/25 03/20/25 03/20/25 03/20/25 03:09 03:24 03:39 03:54 Pulse 69 64 58 58 Resp 13 13 12 12 B/P (MAP) 135/62 (86) 127/52 (77) 125/50 (75) 130/63 (85) Pulse Ox 94 94 95 96 03/20/25 03/20/25 03/20/25 03/20/25 04:00 04:00 04:10 04:24 Temp 97.5 Pulse 98 89 Resp 20 17 B/P (MAP) 147/95 (112) 154/81 (105) Pulse Ox 98 95 97 O2 Delivery Room Air* O2 Flow Rate 0 FiO2 21 03/20/25 03/20/25 03/20/25 03/20/25 04:39 04:54 05:09 05:24 Pulse 76 89 66 82 Resp 12 80 12 25 B/P (MAP) 137/72 (93) 147/82 (103) 139/63 (88) 155/73 (100) Pulse Ox 94 95 95 96 03/20/25 03/20/25 03/20/25 03/20/25 05:39 05:45 05:54 07:00 Pulse 78 81 64 Resp 16 7 12 B/P (MAP) 151/94 (113) 144/68 (93) 144/70 (94) Pulse Ox 97 96 98 98 O2 Delivery Room Air* O2 Flow Rate 0 FiO2 21 03/20/25 03/20/25 03/20/25 03/20/25 07:00 07:15 07:30 07:54 Pulse 62 92 60 71 Resp 9 14 11 16 B/P (MAP) 151/60 (90) 141/81 (101) 146/80 (102) 144/50 (81) Pulse Ox 99 98 98 96 03/20/25 03/20/25 03/20/25 03/20/25 08:00 08:15 08:42 09:00 Pulse 76 83 74 74 Resp 22 19 15 15 B/P (MAP) 151/79 (103) 144/50 (81) 146/57 (86) 141/79 (99) Pulse Ox 96 97 95 98 03/20/25 03/20/25 03/20/25 03/20/25 09:15 09:30 09:45 10:00 Pulse 62 73 72 60 Resp 11 13 11 12 B/P (MAP) 133/51 (78) 107/57 (74) 122/71 (88) 125/57 (79) Pulse Ox 97 03/20/25 03/20/25 03/20/25 03/20/25 10:15 10:30 10:46 11:00 Pulse 63 67 63 64 Resp 18 15 18 15 B/P (MAP) 134/57 (82) 150/89 (109) 146/112 (123) 137/66 (89) Pulse Ox 97 03/20/25 03/20/25 11:16 11:29 Temp 97.7 Pulse 61 Resp 16 B/P (MAP) 144/96 (112) Pulse Ox 97 Intake & Output (last 24hrs) 03/19/25 03/19/25 03/20/25 15:00 23:00 07:00 Intake Total 730.0 ml 375.0 ml 175.0 ml Output Total 400 ml 200 ml 700 ml Balance 330.0 ml 175.0 ml -525.0 ml LABS: Laboratory: Test 03/20/25 04:30 03/19/25 19:19 03/19/25 04:24 Range/Units White Blood Count 14.8 H 4.8-10.8 K/uL Red Blood Count 3.35 L 4.50-6.20 MIL/uL Hemoglobin 10.0 L 14.0-18.0 g/dL Hematocrit 30.0 L 42-54 % Mean Corpuscular Volume 89.6 79-99 fL Mean Corpuscular Hemoglobin 29.9 27.0-33.0 pg Mean Corpuscular Hemoglobin Concent 33.3 32.0-36.0 g/dL Red Cell Distribution Width 13.4 11.0-15.5 % Platelet Count 168 130-400 K/uL Mean Platelet Volume 11.7 H 7.5-10.5 fL Nucleated Red Blood Cells 0.0 0.0-0.19 % Prothrombin Time 11.4 9.6-11.6 SEC Prothromb Time International Ratio 1.08 0.85-1.15 Activated Partial Thromboplast Time 41.7 H 26.3-35.5 SEC Sodium Level 138 136-145 mmol/L Potassium Level 4.5 3.5-5.1 mmol/L Chloride Level 103 101-111 mmol/L Carbon Dioxide Level 26 21-32 mmol/L Blood Urea Nitrogen 44 H 7-18 mg/dL Creatinine 1.1 0.5-1.3 mg/dL Glomerular Filtration Rate Calc 67 >90 mL/min Random Glucose 118 H 70-105 mg/dL Total Calcium 9.0 8.5-10.1 mg/dL Magnesium Level 2.20 1.80-2.40 mg/dL Total Bilirubin 1.0 0.2-1.0 mg/dL Aspartate Amino Transf (AST/SGOT) 59 H 10-37 U/L Alanine Aminotransferase (ALT/SGPT) 30 12-78 U/L Alkaline Phosphatase 77 50-136 U/L Total Protein 6.6 6.0-8.3 g/dL Albumin 3.8 3.5-5.0 g/dL Whole Blood Glucose 147 H 70-110 MG/DL Immature Granulocyte % (Auto) 0.4 0-1 % Neutrophils (%) (Auto) 93.7 H 40.0-77.0 % Lymphocytes (%) (Auto) 3.4 L 21.0-51.0 % Monocytes (%) (Auto) 2.4 L 3.0-13.0 % Eosinophils (%) (Auto) 0.0 0.0-8.0 % Basophils (%) (Auto) 0.1 0.0-5.0 % Neutrophils # (Auto) 8.6 H 1.8-7.7 K/uL Lymphocytes # (Auto) 0.3 L 1.0-4.8 K/uL Monocytes # (Auto) 0.2 0.1-1.0 K/uL Eosinophils # (Auto) 0.00 0.00-0.70 K/uL Basophils # (Auto) 0.01 0.00-0.20 K/uL Absolute Immature Granulocyte (auto 0.04 0-1 K/uL DIAGNOSTICS / RADIOLOGY: PATIENT: ORVILLE DELACRUZ MR#: [id number] : 1940 SEX: M AGE: 85 LOCATION: [facility] ORDER 0 STATUS: ADM IN REPORT#: [id number] SERVICE 8 REASON: frontal headache ORDERING PHYSICIAN: MARIELA MENCHACA MD PROCEDURE: HEAD WO - CT HEAD/BRAIN W/O CONTRAST ADDENDUM REPORT ADDENDUM: Results were shared by telephone at 11:36 am on 03-18-25 and acknowledged by Mariela Britton /[facility] EXAM: CT Head Without IV contrast. CLINICAL HISTORY: frontal headache TECHNIQUE: Axial computed tomography images of the head/brain without intravenous contrast. COMPARISON: None provided. FINDINGS: Acute and chronic subdural hematoma with a maximum thickness of 1.8 cm along the left fmhbmh-oliloio-kjbyhmvj convexity, exerting mass effect in the surrounding sulci and causing a midline shift of 1.6 cm to the right, resultant right subfalcine herniation and left mild uncal herniation. Hypodensities within the deep white matter of the left cerebral convexity suggesting vasogenic edema. The brain stem and cerebellum are otherwise unremarkable. Right cerebral ventricles are normal for age. Left cerebral ventricles are effaced. Left cisternal spaces are effaced. Right cisternal spaces are normal for age. There are no abnormalities in the cerebellopontine angle areas on both sides. Bilateral mastoid air cells and the paranasal sinuses are clear and pneumatized. The orbital contents are unremarkable. No evidence of any obvious fracture seen. There are no abnormalities in the calvarium. IMPRESSION: Acute and chronic subdural hematoma with a maximum thickness of 1.8 cm along the left hnyvwn-jihcuaa-ndcyyszc convexity. Midline shift of 1.6 cm to the right, resultant right subfalcine herniation and left mild uncal herniation. /[facility] DICTATED BY: DEX MOBLEY Jr., MD DATE: 03/18/25 1142 ASSESSMENT: Subdural hematoma, nontraumatic. Hypertensive urgency. Dyslipidemia. Headache. PLAN: Continue pain management. Continue IV steroids. Fall precautions. Continue antihypertensive. Neurosurgeon has evaluated patient and pending a spenser hole procedure. Antiplatelets on hold. This case was reviewed and discussed with my supervising physician Dr. Monique and the above assessment and plan was formulated and agreed upon. ATTESTATION BY PHYSICIAN I have seen and examined the patient. I reviewed the documentation, medical decision making, and treatment plan as noted by the mid-level provider above. I agree with the findings and plan of care. RAJWINDER MONIQUE MD, [facility]IRTA [facility] Mar 20, 2025 12:03
--- NOTE | 2025-03-20 12:46 | PN ---
INFECTIOUS DISEASE FOLLOWUP NOTE SUBJECTIVE: The patient is seen and examined at bedside today. The patient has no fever, no chills. No nausea. No vomiting. No sore throat. No rhinorrhea. No bleeding dependency. . PHYSICAL EXAMINATION: VITAL SIGNS: Temperature 97.5. EYES: No icterus. Pupils equal and reactive. HENT: No oral thrush seen. Moist oral mucosa. NECK: Supple. No JVD or thyromegaly. LUNGS: Good air entry. No rales. No rhonchi. CARDIOVASCULAR: S1 and S2, regular. No murmur heard. ABDOMEN: Soft, nontender. Bowed sound is present. CENTRAL NERVOUS SYSTEM: Awake, alert, and oriented x3. No focal deficits. SKIN: No rashes. LYMPHATIC: No peripheral lymphadenopathy. BACK: No deformity. No pressure ulcer. MUSCULOSKELETAL: No joint swelling, erythema or tenderness. ASSESSMENT: An 85-year-old male who was admitted with headache and confusion. Current problem include; * Subdural hematoma. * Hypertension. * Obesity. * Headache. * Dyslipidemia. * Hypertensive urgency. PLAN: * Continue nutritional support. * Continue vitamin C. * Continue nutritional support. * Continue Synthroid. * Continue pain management. * Continue antimetics. * The patient will follow up closely. TID: [id number] RECEIPT: [id number]
--- NOTE | 2025-03-20 13:23 | PN ---
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 No blurred vision. No nausea, tolerating his diet Vital signs are stable Afebrile Plan: DDVAP given yesterday, pending 1 unit of platelets in preop Patient will go for possible spenser holes tomorrow NPO midnight Neurovascular checks CT with any neurological changes Critical care time 48 minutes, this time excludes any time spent on education or procedures performed REVIEW OF SYSTEMS: 12 point ROS reviewed with patient. Pertinent positives mentioned above. Otherwise negative. PHYSICAL EXAM: GENERAL: alert, weak, awake oriented x 3 HEENT: EOMI, Sclera non icteric, moist mucosa NECK: Supple, no JVD, trachea midline LUNGS: Clear breath sounds bilaterally. No wheezes HEART: Regular rate and rhythm. Normal S1 and S2, without murmurs ABD: Abdomen soft, nontender. Bowel sounds present EXT: No clubbing cyanosis or edema NEURO: Alert and oriented to person, follows commands Vital Signs (last 8hr) Date Time Temp Pulse Resp B/P (MAP) Pulse Ox O2 Delivery O2 Flow Rate FiO2 03/20/25 12:28 97 Room Air* 0 21 03/20/25 11:29 97.7 03/20/25 11:16 61 16 144/96 (112) 97 03/20/25 11:00 64 15 137/66 (89) 97 03/20/25 10:46 63 18 146/112 (123) 03/20/25 10:30 67 15 150/89 (109) 03/20/25 10:15 63 18 134/57 (82) 03/20/25 10:00 60 12 125/57 (79) 97 03/20/25 09:45 72 11 122/71 (88) 03/20/25 09:30 73 13 107/57 (74) 03/20/25 09:15 62 11 133/51 (78) 03/20/25 09:00 74 15 141/79 (99) 98 03/20/25 08:42 74 15 146/57 (86) 95 03/20/25 08:15 83 19 144/50 (81) 97 03/20/25 08:00 76 22 151/79 (103) 96 03/20/25 07:54 71 16 144/50 (81) 96 03/20/25 07:30 60 11 146/80 (102) 98 03/20/25 07:15 92 14 141/81 (101) 98 03/20/25 07:00 62 9 151/60 (90) 99 03/20/25 07:00 98 Room Air* 0 21 03/20/25 05:54 64 12 144/70 (94) 98 03/20/25 05:45 81 7 144/68 (93) 96 03/20/25 05:39 78 16 151/94 (113) 97 03/20/25 05:24 82 25 155/73 (100) 96 LABS: Hematology Labs: Test 03/20/25 04:30 03/19/25 04:24 Range/Units White Blood Count 14.8 H 4.8-10.8 K/uL Red Blood Count 3.35 L 4.50-6.20 MIL/uL Hemoglobin 10.0 L 14.0-18.0 g/dL Hematocrit 30.0 L 42-54 % Mean Corpuscular Volume 89.6 79-99 fL Mean Corpuscular Hemoglobin 29.9 27.0-33.0 pg Mean Corpuscular Hemoglobin Concent 33.3 32.0-36.0 g/dL Red Cell Distribution Width 13.4 11.0-15.5 % Platelet Count 168 130-400 K/uL Mean Platelet Volume 11.7 H 7.5-10.5 fL Nucleated Red Blood Cells 0.0 0.0-0.19 % Immature Granulocyte % (Auto) 0.4 0-1 % Neutrophils (%) (Auto) 93.7 H 40.0-77.0 % Lymphocytes (%) (Auto) 3.4 L 21.0-51.0 % Monocytes (%) (Auto) 2.4 L 3.0-13.0 % Eosinophils (%) (Auto) 0.0 0.0-8.0 % Basophils (%) (Auto) 0.1 0.0-5.0 % Neutrophils # (Auto) 8.6 H 1.8-7.7 K/uL Lymphocytes # (Auto) 0.3 L 1.0-4.8 K/uL Monocytes # (Auto) 0.2 0.1-1.0 K/uL Eosinophils # (Auto) 0.00 0.00-0.70 K/uL Basophils # (Auto) 0.01 0.00-0.20 K/uL Absolute Immature Granulocyte (auto 0.04 0-1 K/uL Chemistry Labs: Test 03/20/25 12:04 03/20/25 04:30 Range/Units Whole Blood Glucose 110 70-110 MG/DL Sodium Level 138 136-145 mmol/L Potassium Level 4.5 3.5-5.1 mmol/L Chloride Level 103 101-111 mmol/L Carbon Dioxide Level 26 21-32 mmol/L Blood Urea Nitrogen 44 H 7-18 mg/dL Creatinine 1.1 0.5-1.3 mg/dL Glomerular Filtration Rate Calc 67 >90 mL/min Random Glucose 118 H 70-105 mg/dL Total Calcium 9.0 8.5-10.1 mg/dL Magnesium Level 2.20 1.80-2.40 mg/dL Total Bilirubin 1.0 0.2-1.0 mg/dL Aspartate Amino Transf (AST/SGOT) 59 H 10-37 U/L Alanine Aminotransferase (ALT/SGPT) 30 12-78 U/L Alkaline Phosphatase 77 50-136 U/L Total Protein 6.6 6.0-8.3 g/dL Albumin 3.8 3.5-5.0 g/dL Coagulation Labs: Test 03/20/25 04:30 Range/Units Prothrombin Time 11.4 9.6-11.6 SEC Prothromb Time International Ratio 1.08 0.85-1.15 Activated Partial Thromboplast Time 41.7 H 26.3-35.5 SEC DIAGNOSTICS / RADIOLOGY RESULTS: [ ] PLAN NEURO: Minimize central acting medications as possible. Fall Precautions. Well lighted room through the day and minimize interruptions through the night to prevent acute delirium. PULMONARY: Supplemental 02 as needed Titrate Fio2 to keep Spo2 > or = 90% DuoNebs and CPT as needed IS hourly while awake for pulmonary hygiene Out of bed to chair as tolerated CARDIOVASCULAR: Follow hemodynamics. Titrate vasopressor to keep MAP >65 or systolic blood pressure >95mmHg DRIPS: cardene LINES: piv GI & NUTRITION: Continue nutritional support Aspirations precautions Prokinetic agents and laxatives as needed KIDNEYS & ELECTROLYTES: Strict monitoring of intake and output Daily weights Avoid nephrotoxic agents Monitor electrolytes and replace as needed Goal urine output of 30mL/hr or 0.5mL/kg/hr Urine output: [ ] Fluid Balance: [ ] ENDOCRINE: Maintain blood glucose between 100-180 at all times. Insulin sliding scale for blood glucose management INFECTIOUS DISEASE: Trend temperature. Leyva-culture if febrile. Micro: [ ] Antibiotics: [ ] HEMATOLOGY & COAGULATION: Monitor H&H. Keep Hgb > 7 Transfuse 1 unit of PRBC for Hgb < 7 Transfuse 1 pack of platelets of platelets < 20, 000 Watch for any signs and symptoms of bleeding SKIN: Pressure ulcer prevention per facility protocol Rehab: PT/OT Prophylaxis: GI: [ protonix] DVT: [ scd] Code Status: Full Resuscitation Disposition: [icu ] Case was discussed and seen with my supervising physician. The above plan was formulated and agreed upon. ORVILLE HICKMAN PAC Mar 20, 2025 13:23
--- NOTE | 2025-03-20 14:44 | NUR ---
[facility] ICU Skin Assessment: Patient assessed by wound healing team. Patient with no wounds or skin breakdown noted. Assessment and recommendations provided to primary nurse. Education provided. Addendum: 03/20/25 at 1547 by IVETH CROUCH RN RN/ Amended: Links added.
--- NOTE | 2025-03-20 15:02 | NUR ---
PLAN OF CARE Spoke to by phone - orders received - refer to EMR. Pt updated.
--- NOTE | 2025-03-20 15:08 | NUR ---
PLANNED TRANSFUSION Spoke to Amauri in blood bank regarding order received to transfuse platelets 10/16 am as well as request to have unit on standby. Platelets will be ordered.
--- NOTE | 2025-03-20 15:09 | PN ---
[facility] PROGRESS NOTE Date Patient Seen: Mar 20, 2025 Time of Visit: 15:09 Supervising Physician: [ ] Primary Care Physician: Tiesha Vuong Outpatient Specialists: [ ] Inpatient Consults: [facility] neurosurgery Attending Dr Christianson PROBLEM LIST: Acute on chronic Subdural hematoma Hypertensive emergency, POA Normocytic anemia, POA Hyperglycemia, POA Comorbidities: Hyperlipidemia Zenker's diverticulum Hiatal hernia Hypothyroidism Coronary artery disease status post CABG x2 04/24 status post TAVR 09/05/2024 INTERVAL HISTORY: Patient was seen and examined, all labs and imaging have been reviewed, patient actually ambulating with physical therapy He is reporting no headache or dizziness. No blurred vision. No nausea, tolerating his diet Vital signs are stable Afebrile Plan: DDVAP given yesterday, pending 1 unit of platelets in preop Patient will go for possible spenser holes tomorrow NPO midnight Neurovascular checks CT with any neurological changes Critical care time 48 minutes, this time excludes any time spent on education or procedures performed REVIEW OF SYSTEMS: 12 point ROS reviewed with patient. Pertinent positives mentioned above. Otherwise negative. PHYSICAL EXAM: GENERAL: alert, weak, awake oriented x 3 HEENT: EOMI, Sclera non icteric, moist mucosa NECK: Supple, no JVD, trachea midline LUNGS: Clear breath sounds bilaterally. No wheezes HEART: Regular rate and rhythm. Normal S1 and S2, without murmurs ABD: Abdomen soft, nontender. Bowel sounds present EXT: No clubbing cyanosis or edema NEURO: Alert and oriented to person, follows commands Vital Signs (last 8hr) Date Time Temp Pulse Resp B/P (MAP) Pulse Ox O2 Delivery O2 Flow Rate FiO2 03/20/25 12:28 97 Room Air* 0 21 03/20/25 11:29 97.7 03/20/25 11:16 61 16 144/96 (112) 97 03/20/25 11:00 64 15 137/66 (89) 97 03/20/25 10:46 63 18 146/112 (123) 03/20/25 10:30 67 15 150/89 (109) 03/20/25 10:15 63 18 134/57 (82) 03/20/25 10:00 60 12 125/57 (79) 97 03/20/25 09:45 72 11 122/71 (88) 03/20/25 09:30 73 13 107/57 (74) 03/20/25 09:15 62 11 133/51 (78) 03/20/25 09:00 74 15 141/79 (99) 98 03/20/25 08:42 74 15 146/57 (86) 95 03/20/25 08:15 83 19 144/50 (81) 97 03/20/25 08:00 76 22 151/79 (103) 96 03/20/25 07:54 71 16 144/50 (81) 96 03/20/25 07:30 60 11 146/80 (102) 98 03/20/25 07:15 92 14 141/81 (101) 98 LABS: Hematology Labs: Test 03/20/25 04:30 03/19/25 04:24 Range/Units White Blood Count 14.8 H 4.8-10.8 K/uL Red Blood Count 3.35 L 4.50-6.20 MIL/uL Hemoglobin 10.0 L 14.0-18.0 g/dL Hematocrit 30.0 L 42-54 % Mean Corpuscular Volume 89.6 79-99 fL Mean Corpuscular Hemoglobin 29.9 27.0-33.0 pg Mean Corpuscular Hemoglobin Concent 33.3 32.0-36.0 g/dL Red Cell Distribution Width 13.4 11.0-15.5 % Platelet Count 168 130-400 K/uL Mean Platelet Volume 11.7 H 7.5-10.5 fL Nucleated Red Blood Cells 0.0 0.0-0.19 % Immature Granulocyte % (Auto) 0.4 0-1 % Neutrophils (%) (Auto) 93.7 H 40.0-77.0 % Lymphocytes (%) (Auto) 3.4 L 21.0-51.0 % Monocytes (%) (Auto) 2.4 L 3.0-13.0 % Eosinophils (%) (Auto) 0.0 0.0-8.0 % Basophils (%) (Auto) 0.1 0.0-5.0 % Neutrophils # (Auto) 8.6 H 1.8-7.7 K/uL Lymphocytes # (Auto) 0.3 L 1.0-4.8 K/uL Monocytes # (Auto) 0.2 0.1-1.0 K/uL Eosinophils # (Auto) 0.00 0.00-0.70 K/uL Basophils # (Auto) 0.01 0.00-0.20 K/uL Absolute Immature Granulocyte (auto 0.04 0-1 K/uL Chemistry Labs: Test 03/20/25 12:04 03/20/25 04:30 Range/Units Whole Blood Glucose 110 70-110 MG/DL Sodium Level 138 136-145 mmol/L Potassium Level 4.5 3.5-5.1 mmol/L Chloride Level 103 101-111 mmol/L Carbon Dioxide Level 26 21-32 mmol/L Blood Urea Nitrogen 44 H 7-18 mg/dL Creatinine 1.1 0.5-1.3 mg/dL Glomerular Filtration Rate Calc 67 >90 mL/min Random Glucose 118 H 70-105 mg/dL Total Calcium 9.0 8.5-10.1 mg/dL Magnesium Level 2.20 1.80-2.40 mg/dL Total Bilirubin 1.0 0.2-1.0 mg/dL Aspartate Amino Transf (AST/SGOT) 59 H 10-37 U/L Alanine Aminotransferase (ALT/SGPT) 30 12-78 U/L Alkaline Phosphatase 77 50-136 U/L Total Protein 6.6 6.0-8.3 g/dL Albumin 3.8 3.5-5.0 g/dL Coagulation Labs: Test 03/20/25 04:30 Range/Units Prothrombin Time 11.4 9.6-11.6 SEC Prothromb Time International Ratio 1.08 0.85-1.15 Activated Partial Thromboplast Time 41.7 H 26.3-35.5 SEC DIAGNOSTICS / RADIOLOGY RESULTS: [ ] PLAN NEURO: Minimize central acting medications as possible. Fall Precautions. Well lighted room through the day and minimize interruptions through the night to prevent acute delirium. PULMONARY: Supplemental 02 as needed Titrate Fio2 to keep Spo2 > or = 90% DuoNebs and CPT as needed IS hourly while awake for pulmonary hygiene Out of bed to chair as tolerated CARDIOVASCULAR: Follow hemodynamics. Titrate vasopressor to keep MAP >65 or systolic blood pressure >95mmHg DRIPS: cardene LINES: piv GI & NUTRITION: Continue nutritional support Aspirations precautions Prokinetic agents and laxatives as needed KIDNEYS & ELECTROLYTES: Strict monitoring of intake and output Daily weights Avoid nephrotoxic agents Monitor electrolytes and replace as needed Goal urine output of 30mL/hr or 0.5mL/kg/hr Urine output: [ ] Fluid Balance: [ ] ENDOCRINE: Maintain blood glucose between 100-180 at all times. Insulin sliding scale for blood glucose management INFECTIOUS DISEASE: Trend temperature. Leyva-culture if febrile. Micro: [ ] Antibiotics: [ ] HEMATOLOGY & COAGULATION: Monitor H&H. Keep Hgb > 7 Transfuse 1 unit of PRBC for Hgb < 7 Transfuse 1 pack of platelets of platelets < 20, 000 Watch for any signs and symptoms of bleeding SKIN: Pressure ulcer prevention per facility protocol Rehab: PT/OT Prophylaxis: GI: [ protonix] DVT: [ scd] Code Status: Full Resuscitation Disposition: [icu ] Case was discussed and seen with my supervising physician. The above plan was formulated and agreed upon. AVEL KRISHNAMURTHY MD Mar 20, 2025 15:09
--- NOTE | 2025-03-20 15:28 | PN ---
PROGRESS NOTE PROBLEM LIST: Subdural hematoma along temporoparietal lobe with midline shift Hypertensive emergency on presentation Hypertension Dyslipidemia Zenker's diverticulum Hiatal hernia Hypothyroidism Coronary artery disease status post CABG x2 with JETER to the LAD and saphenous vein graft to the diagonal1 April 2019 Aortic stenosis status post TAVR with an Gonzalez Lifescience 26 mm TAVR valve 09/05/2024 2/2 grafts patent by follow-up cardiac catheterization June 2024 Normal LV systolic function with an LVEF of 55-60% by prior 2D echocardiogram [id number] infrapopliteal peripheral artery disease INTERIM HISTORY OF PRESENT ILLNESS: Overall patient is doing well and is off Cardene drip. He remains in ICU considering neurologic presentation. Tentatively he is scheduled for evacuation of subdural hematoma tomorrow. REVIEW OF SYSTEMS: No fever, headache, chest pain, abdominal pain, nausea, vomiting, or diarrhea. VITAL SIGNS Vital Signs Date Time Temp Pulse Resp B/P (MAP) Pulse Ox O2 Delivery O2 Flow Rate FiO2 03/20/25 12:28 97 Room Air* 0 21 03/20/25 11:29 97.7 03/20/25 11:16 61 16 144/96 (112) Laboratory Tests 03/20/25 04:30 LABS/MEDS Laboratory Tests Test 03/19/25 16:23 03/19/25 19:19 03/20/25 04:30 03/20/25 12:04 Whole Blood Glucose 141 MG/DL (70-110) H 147 MG/DL (70-110) H 110 MG/DL (70-110) White Blood Count 14.8 K/uL (4.8-10.8) H Red Blood Count 3.35 MIL/uL (4.50-6.20) L Hemoglobin 10.0 g/dL (14.0-18.0) L Hematocrit 30.0 % (42-54) L Mean Corpuscular Volume 89.6 fL (79-99) Mean Corpuscular Hemoglobin 29.9 pg (27.0-33.0) Mean Corpuscular Hemoglobin Concent 33.3 g/dL (32.0-36.0) Red Cell Distribution Width 13.4 % (11.0-15.5) Platelet Count 168 K/uL (130-400) Mean Platelet Volume 11.7 fL (7.5-10.5) H Nucleated Red Blood Cells 0.0 % (0.0-0.19) Prothrombin Time 11.4 SEC (9.6-11.6) Prothromb Time International Ratio 1.08 (0.85-1.15) Activated Partial Thromboplast Time 41.7 SEC (26.3-35.5) H Sodium Level 138 mmol/L (136-145) Potassium Level 4.5 mmol/L (3.5-5.1) Chloride Level 103 mmol/L (101-111) Carbon Dioxide Level 26 mmol/L (21-32) Blood Urea Nitrogen 44 mg/dL (7-18) H Creatinine 1.1 mg/dL (0.5-1.3) Glomerular Filtration Rate Calc 67 mL/min (>90) Random Glucose 118 mg/dL (70-105) H Total Calcium 9.0 mg/dL (8.5-10.1) Magnesium Level 2.20 mg/dL (1.80-2.40) Total Bilirubin 1.0 mg/dL (0.2-1.0) Aspartate Amino Transf (AST/SGOT) 59 U/L (10-37) H Alanine Aminotransferase (ALT/SGPT) 30 U/L (12-78) Alkaline Phosphatase 77 U/L (50-136) Total Protein 6.6 g/dL (6.0-8.3) Albumin 3.8 g/dL (3.5-5.0) Current Medications Sodium Chloride 1,000 ml @ 0 mls/hr ONCE ONCE IV Last administered on 03/18/25at 09:38; Start 03/18/25 at 08:30; Stop 03/18/25 at 08:31; Status DC Acetaminophen 1,000 mg ONCE ONCE PO Last administered on 03/18/25at 09:37; Start 03/18/25 at 08:30; Stop 03/18/25 at 08:31; Status DC Dexamethasone Sodium Phosphate 4 mg ONCE ONCE IV Last administered on 03/18/25at 11:14; Start 03/18/25 at 10:00; Stop 03/18/25 at 10:01; Status DC Nicardipine HCl 25 mg/Sodium Chloride 250 ml @ 0 mls/hr PROTOCOL IV Last administered on 03/20/25at 02:30; Start 03/18/25 at 10:00; Stop 04/17/25 at 09:59 Mannitol 19 gm ONCE ONCE IV Last administered on 03/18/25at 11:16; Start 03/18/25 at 10:30; Stop 03/18/25 at 10:31; Status DC Acetaminophen 650 mg Q4H PRN PO; Start 03/18/25 at 10:30; Stop 04/17/25 at 10:29 Ondansetron HCl 4 mg Q6H PRN IVP; Start 03/18/25 at 10:30; Stop 04/17/25 at 10:29 Insulin Human Regular INSULIN SLIDING SCAL... ACHS SQ; Start 03/18/25 at 11:30; Stop 04/17/25 at 11:29 Alprazolam 0.25 mg ONCE ONCE PO Last administered on 03/18/25at 14:59; Start 03/18/25 at 12:30; Stop 03/18/25 at 12:31; Status DC Dexamethasone Sodium Phosphate 4 mg Q8H IV Last administered on 03/20/25at 12:03; Start 03/18/25 at 20:00; Stop 04/17/25 at 19:59 Citalopram Hydrobromide 20 mg ONCE ONCE PO Last administered on 03/18/25at 23:03; Start 03/18/25 at 23:00; Stop 03/18/25 at 23:01; Status DC Amlodipine Besylate 5 mg BID PO Last administered on 03/20/25at 08:14; Start 03/19/25 at 09:00; Stop 04/18/25 at 08:59 Metoprolol Succinate 25 mg BID PO Last administered on 03/20/25at 08:14; Start 03/19/25 at 09:00; Stop 04/18/25 at 08:59 Desmopressin Acetate 20 mcg/ Sodium Chloride 55 ml @ 100 mls/hr ONCE ONCE IJ Last administered on 03/19/25at 13:36; Start 03/19/25 at 13:30; Stop 03/19/25 at 14:02; Status DC Citalopram Hydrobromide 20 mg HS PO Last administered on 03/19/25at 20:54; Start 03/19/25 at 21:00; Stop 04/18/25 at 20:59 Acetaminophen 650 mg Q4H PRN PO; Start 03/20/25 at 08:30; Stop 11/14/25 at 08:29 Hydralazine HCl 10 mg Q4H PRN IV; Start 03/20/25 at 14:00; Stop 04/19/25 at 13:59 Labetalol HCl 10 mg Q6H PRN IV; Start 03/20/25 at 14:00; Stop 04/19/25 at 13:59 PHYSICAL EXAMINATION: GENERAL: No acute distress. HEENT: Normocephalic, atraumatic.. EXTREMITIES: No edema bilaterally. NEUROLOGIC: Cranial nerves 2-12 grossly intact. PSYCHIATRIC: Calm. TELEMETRY: NORMAL SINUS RHYTHM ASSESSMENT: Subdural hematoma along temporoparietal lobe with midline shift Hypertensive emergency on presentation Hypertension Dyslipidemia Zenker's diverticulum Hiatal hernia Hypothyroidism Coronary artery disease status post CABG x2 with JETER to the LAD and saphenous vein graft to the diagonal1 April 2019 Aortic stenosis status post TAVR with an Gonzalez Lifescience 26 mm TAVR valve 09/05/2024 2/2 grafts patent by follow-up cardiac catheterization June 2024 Normal LV systolic function with an LVEF of 55-60% by prior 2D echocardiogram [id number] infrapopliteal peripheral artery disease PLAN: Patient should be considered an excellent candidate to proceed with noncardiac surgery. Risks and goals of procedure have been discussed with the patient. We continue to hold antiplatelet therapy. All questions have been answered. BRISEIDA ARANA MD Mar 20, 2025 15:28
--- NOTE | 2025-03-20 18:23 | PN ---
[facility] PROGRESS NOTE Date Patient Seen: Mar 20, 2025 Time of Visit: 9:15 Supervising Physician: [ DWIGHT POP MD] Primary Care Physician: Tiesha Vuong Outpatient Specialists: [ ] Inpatient Consults: [facility] neurosurgery Attending Dr Christianson PROBLEM LIST: Acute on chronic Subdural hematoma Hypertensive emergency, POA Normocytic anemia, POA Hyperglycemia, POA Comorbidities: Hyperlipidemia Zenker's diverticulum Hiatal hernia Hypothyroidism Coronary artery disease status post CABG x2 04/24 status post TAVR 09/05/2024 INTERVAL HISTORY: Patient was seen and examined, all labs and imaging have been reviewed, patient actually ambulating with physical therapy He is reporting no headache or dizziness. No blurred vision. No nausea, tolerating his diet Vital signs are stable Afebrile Plan: DDVAP given yesterday, pending 1 unit of platelets in preop Patient will go for possible spenser holes tomorrow NPO midnight Neurovascular checks CT with any neurological changes Critical care time 48 minutes, this time excludes any time spent on education or procedures performed REVIEW OF SYSTEMS: 12 point ROS reviewed with patient. Pertinent positives mentioned above. Otherwise negative. PHYSICAL EXAM: GENERAL: alert, weak, awake oriented x 3 HEENT: EOMI, Sclera non icteric, moist mucosa NECK: Supple, no JVD, trachea midline LUNGS: Clear breath sounds bilaterally. No wheezes HEART: Regular rate and rhythm. Normal S1 and S2, without murmurs ABD: Abdomen soft, nontender. Bowel sounds present EXT: No clubbing cyanosis or edema NEURO: Alert and oriented to person, follows commands Vital Signs (last 8hr) Date Time Temp Pulse Resp B/P (MAP) Pulse Ox O2 Delivery O2 Flow Rate FiO2 03/20/25 17:00 82 10 139/88 97 Room Air 03/20/25 16:30 98.4 74 18 133/76 98 03/20/25 16:00 69 15 153/67 96 Room Air 03/20/25 15:42 64 16 143/58 97 03/20/25 15:17 69 32 152/51 97 Room Air 03/20/25 14:00 88 31 140/67 96 Room Air 03/20/25 13:00 68 16 147/56 97 Room Air 03/20/25 12:30 75 16 139/69 98 03/20/25 12:28 97 Room Air* 0 21 03/20/25 12:00 74 14 135/84 97 Room Air 03/20/25 11:29 97.7 03/20/25 11:16 61 16 144/96 (112) 97 03/20/25 11:00 64 15 137/66 (89) 97 03/20/25 10:46 63 18 146/112 (123) 03/20/25 10:30 67 15 150/89 (109) LABS: Hematology Labs: Test 03/20/25 04:30 03/19/25 04:24 Range/Units White Blood Count 14.8 H 4.8-10.8 K/uL Red Blood Count 3.35 L 4.50-6.20 MIL/uL Hemoglobin 10.0 L 14.0-18.0 g/dL Hematocrit 30.0 L 42-54 % Mean Corpuscular Volume 89.6 79-99 fL Mean Corpuscular Hemoglobin 29.9 27.0-33.0 pg Mean Corpuscular Hemoglobin Concent 33.3 32.0-36.0 g/dL Red Cell Distribution Width 13.4 11.0-15.5 % Platelet Count 168 130-400 K/uL Mean Platelet Volume 11.7 H 7.5-10.5 fL Nucleated Red Blood Cells 0.0 0.0-0.19 % Immature Granulocyte % (Auto) 0.4 0-1 % Neutrophils (%) (Auto) 93.7 H 40.0-77.0 % Lymphocytes (%) (Auto) 3.4 L 21.0-51.0 % Monocytes (%) (Auto) 2.4 L 3.0-13.0 % Eosinophils (%) (Auto) 0.0 0.0-8.0 % Basophils (%) (Auto) 0.1 0.0-5.0 % Neutrophils # (Auto) 8.6 H 1.8-7.7 K/uL Lymphocytes # (Auto) 0.3 L 1.0-4.8 K/uL Monocytes # (Auto) 0.2 0.1-1.0 K/uL Eosinophils # (Auto) 0.00 0.00-0.70 K/uL Basophils # (Auto) 0.01 0.00-0.20 K/uL Absolute Immature Granulocyte (auto 0.04 0-1 K/uL Chemistry Labs: Test 03/20/25 16:51 03/20/25 04:30 Range/Units Whole Blood Glucose 113 H 70-110 MG/DL Sodium Level 138 136-145 mmol/L Potassium Level 4.5 3.5-5.1 mmol/L Chloride Level 103 101-111 mmol/L Carbon Dioxide Level 26 21-32 mmol/L Blood Urea Nitrogen 44 H 7-18 mg/dL Creatinine 1.1 0.5-1.3 mg/dL Glomerular Filtration Rate Calc 67 >90 mL/min Random Glucose 118 H 70-105 mg/dL Total Calcium 9.0 8.5-10.1 mg/dL Magnesium Level 2.20 1.80-2.40 mg/dL Total Bilirubin 1.0 0.2-1.0 mg/dL Aspartate Amino Transf (AST/SGOT) 59 H 10-37 U/L Alanine Aminotransferase (ALT/SGPT) 30 12-78 U/L Alkaline Phosphatase 77 50-136 U/L Total Protein 6.6 6.0-8.3 g/dL Albumin 3.8 3.5-5.0 g/dL Coagulation Labs: Test 03/20/25 04:30 Range/Units Prothrombin Time 11.4 9.6-11.6 SEC Prothromb Time International Ratio 1.08 0.85-1.15 Activated Partial Thromboplast Time 41.7 H 26.3-35.5 SEC DIAGNOSTICS / RADIOLOGY RESULTS: [ PATIENT: ORVILLE DELACRUZ MR#: [id number] : 1940 SEX: M AGE: 85 LOCATION: 2C ORDER 1230 STATUS: ADM IN REPORT#: [id number] SERVICE 1400 REASON: INTRACRANIAL BLEED ORDERING PHYSICIAN: NILO SILVA PROCEDURE: HEAD WO - CT HEAD/BRAIN W/O CONTRAST EXAM: CT Head Without Intravenous Contrast. CLINICAL HISTORY: History of intracranial hemorrhage; evaluation for interval change. TECHNIQUE: Axial computed tomography images of the brain were obtained without intravenous contrast, with coronal and sagittal reformations. Radiation dose reduction followed fi-ctv-xf-reasonably-achievable principles, including automatic exposure control, patient size???based tube current and tube potential modulation, and iterative reconstruction. CONTRAST: Without. COMPARISON: Noncontrast head computed tomography dated 03/18/2025 at 08:52 Eastern Daylight Time. FINDINGS: BRAIN: Stable large xxskd-or-qgfyrvr left convexity subdural hematoma, again seen, involving the frontal, parietal, and temporal regions with maximal thickness of approximately 1.8 centimeters. There is marked mass effect with effacement of adjacent cortical sulci, effacement of the left lateral ventricle, and approximately 1.6 centimeters of rightward midline shift. Associated right subfalcine herniation and mild left uncal herniation are present. Hypodense changes within the deep white matter of the left cerebral hemisphere consistent with vasogenic edema adjacent to the hematoma. No large territorial infarction identified on this noncontrast study. No acute intraparenchymal hemorrhage. No mass lesion. Brainstem and cerebellum are unremarkable. VENTRICLES: Right lateral ventricular size is within expected limits for age; left lateral ventricle is effaced. Left basal cisternal spaces are effaced; right cisternal spaces remain patent. No hydrocephalus. ORBITS: Orbital contents are within normal noncontrast computed tomography limits. SINUSES AND MASTOIDS: Air fluid level in left sphenoid sinus consistent with sinusitis. The remaining paranasal sinuses and mastoid air cells are clear and well aerated bilaterally. SOFT TISSUES: No significant facial or scalp soft tissue swelling evident. No radiopaque foreign body is seen. BONES: No acute calvarial fracture identified. IMPRESSION: 1. Stable large ykzsi-fr-fhmucgh left convexity subdural hematoma with 1.6 cm rightward midline shift, causing right subfalcine herniation and mild left uncal herniation. 2. Vasogenic edema in the left cerebral hemisphere adjacent to the hematoma. 3. Incidental paranasal sinus disease as detailed in the report body.EXAM: CT Head Without Intravenous Contrast. CLINICAL HISTORY: History of intracranial hemorrhage; evaluation for interval change. TECHNIQUE: Axial computed tomography images of the brain were obtained without intravenous contrast, with coronal and sagittal reformations. Radiation dose reduction followed un-gor-og-reasonably-achievable principles, including automatic exposure control, patient size???based tube current and tube potential modulation, and iterative reconstruction. CONTRAST: Without. COMPARISON: Noncontrast head computed tomography dated 03/18/2025 at 08:52 Eastern Daylight Time. FINDINGS: BRAIN: Stable large bzbxw-hd-fifydjq left convexity subdural hematoma, again seen, involving the frontal, parietal, and temporal regions with maximal thickness of approximately 1.8 centimeters. There is marked mass effect with effacement of adjacent cortical sulci, effacement of the left lateral ventricle, and approximately 1.6 centimeters of rightward midline shift. Associated right subfalcine herniation and mild left uncal herniation are present. Hypodense changes within the deep white matter of the left cerebral hemisphere consistent with vasogenic edema adjacent to the hematoma. No large territorial infarction identified on this noncontrast study. No acute intraparenchymal hemorrhage. No mass lesion. Brainstem and cerebellum are unremarkable. VENTRICLES: Right lateral ventricular size is within expected limits for age; left lateral ventricle is effaced. Left basal cisternal spaces are effaced; right cisternal spaces remain patent. No hydrocephalus. ORBITS: Orbital contents are within normal noncontrast computed tomography limits. SINUSES AND MASTOIDS: Air fluid level in left sphenoid sinus consistent with sinusitis. The remaining paranasal sinuses and mastoid air cells are clear and well aerated bilaterally. SOFT TISSUES: No significant facial or scalp soft tissue swelling evident. No radiopaque foreign body is seen. BONES: No acute calvarial fracture identified. IMPRESSION: 1. Stable large wtbvt-tw-zmoppgt left convexity subdural hematoma with 1.6 cm rightward midline shift, causing right subfalcine herniation and mild left uncal herniation. 2. Vasogenic edema in the left cerebral hemisphere adjacent to the hematoma. 3. Incidental paranasal sinus disease as detailed in the report body. /Bono DICTATED BY: SIDDHARTH KAY MD DATE: 03/18/251616 ELECTRONICALLY SIGNED BY: SIDDHARTH KAY MD DATE: 03/18/251616 ] PLAN NEURO: Minimize central acting medications as possible. Fall Precautions. Well lighted room through the day and minimize interruptions through the night to prevent acute delirium. PULMONARY: Supplemental 02 as needed Titrate Fio2 to keep Spo2 > or = 90% DuoNebs and CPT as needed IS hourly while awake for pulmonary hygiene Out of bed to chair as tolerated CARDIOVASCULAR: Follow hemodynamics. Titrate vasopressor to keep MAP >65 or systolic blood pressure >95mmHg DRIPS: cardene LINES: piv GI & NUTRITION: Continue nutritional support Aspirations precautions Prokinetic agents and laxatives as needed KIDNEYS & ELECTROLYTES: Strict monitoring of intake and output Daily weights Avoid nephrotoxic agents Monitor electrolytes and replace as needed Goal urine output of 30mL/hr or 0.5mL/kg/hr Urine output: [ ] Fluid Balance: [ ] ENDOCRINE: Maintain blood glucose between 100-180 at all times. Insulin sliding scale for blood glucose management INFECTIOUS DISEASE: Trend temperature. Leyva-culture if febrile. Micro: [ ] Antibiotics: [ ] HEMATOLOGY & COAGULATION: Monitor H&H. Keep Hgb > 7 Transfuse 1 unit of PRBC for Hgb < 7 Transfuse 1 pack of platelets of platelets < 20, 000 Watch for any signs and symptoms of bleeding SKIN: Pressure ulcer prevention per facility protocol Rehab: PT/OT Prophylaxis: GI: [ protonix] DVT: [ scd] Code Status: Full Resuscitation Disposition: [icu ] Case was discussed and seen with my supervising physician. The above plan was formulated and agreed upon. ATTESTATION BY PHYSICIAN I have seen and examined the patient. I reviewed the documentation, medical decision making, and treatment plan as noted by the resident physician above. I agree with the findings and plan of care. DWIGHT POP MD, MUHAMMAD H MD Mar 20, 2025 18:23
[2025-03-21] VITALS (38 sets, daily range): BP systolic 103–158; BP diastolic 47–113; PULSE 48–86; RESP 10–25; TEMP 97.7–98.2; O2SAT 98–99
[2025-03-21 04:59] LABS: IMMATURE GRANULOCYTE ABSOLUTE 0.13 K/uL (0-1); NUCLEATED RED BLOOD CELLS 0.0 % (0.0-0.19); PLATELET COUNT (AUTO) 230 K/uL (130-400); RED BLOOD CELL COUNT(AUTO) 3.74 MIL/uL (4.50-6.20); RED CELL DISTRIBUTION WIDTH 13.6 % (11.0-15.5); WHITE BLOOD COUNT (AUTO) 18.4 K/uL (4.8-10.8)
[2025-03-21 05:12] LABS: ASPARTATE AMINOTRANSFERASE 80.0 U/L (10-37); CREATININE 1.2 mg/dL (0.5-1.3); GLOMERULAR FILTR. RATE CALC 60.0 mL/min (>90); GLUCOSE,RANDOM 105.0 mg/dL (70-105); SODIUM SERUM 139.0 mmol/L (136-145); TOTAL PROTEIN, SERUM 6.8 g/dL (6.0-8.3); UREA NITROGEN, BLOOD 50.0 mg/dL (7-18)
[2025-03-21] MEDS ORDERED: LIDOCAINE PF 100MG/5ML (2%) SYRINGE 5ML ONE (06:29)
[2025-03-21] MEDS ORDERED: SUCCINYLCHOLINE CHLORIDE 20 MG/ML 10 ML VIAL ONE (06:30)
[2025-03-21] MEDS ORDERED: NEOSTIGMINE METHYLSULFATE 1MG/ML IV ONE (06:30)
[2025-03-21] MEDS ORDERED: GLYCOPYRROLATE 0.2 MG/ML 5 ML VIAL ONE (06:30)
[2025-03-21] MEDS ORDERED: MIDAZOLAM HCL 1 MG/ML 2ML VIAL ONE (06:31)
[2025-03-21] MEDS ORDERED: VANCOMYCIN 1G/250ML KIT 250 ML IV ONE ×2 (06:35→14:17)
[2025-03-21] MEDS ORDERED: THROMBIN-JMI 20000 UNIT KIT TP ONE ×2 (06:35→14:41)
[2025-03-21] MEDS ORDERED: NEOMY SULF/BACITRAC ZN/POLY OINT 30GM TUBE TP ONE (06:35)
--- NOTE | 2025-03-21 07:06 | NUR ---
Altered mental status Patient became confused and agitated at 0600. patient undressing and attempting to get out of bed. Dr Thornton called and made aware of. patient moving all extremities with no deficits. pupils reactive and brisk/equal. Dr Thornton ordered diazepam and a stat CT. also informed RN to call patient relations director. CLAUDIA Looney made aware of with no new orders. patient at this point@645 getting dressed and walking out of his room. Code manpower called. Dr Thornton arrived at bedside @0700. patient continues confused and agitated despite the given diazepam. As per Dr Thornton give another dose of diazepam and d/c stat Ct ordered earlier.
--- NOTE | 2025-03-21 08:11 | NUR ---
CONFUSION/ALTERED METAL STATUS. PATIENT REFUSED TO GO TO SURGERY AT THIS TIME. PATIENT STATES " THIS IS ALL A MEDICAL SCAM." 1:1 SITTER AT BEDSIDE. FAMILY FRIEND EVELINE AND SON AT BEDSIDE TALKING TO PATIENT. PT ALSO REFUSING IV MEDICATIONS, BP CUFF, MONITOR LEADS, AND DOES NOT WANT TO LAY IN BED. CURRENTLY SITTING IN CHAIR DRESSED UP ON CIVILIAN CLOTHES WANTING TO GO HOME. WILL CONTINUE TO MONITOR. PATIENT IS ALERT X2. DOCTOR PREMA AT BESIDE EARLIER THIS MORNING TO EVALUATE PATIENT. WILL POSTPONE FOR LATER TODAY OR TOMORROW.
--- NOTE | 2025-03-21 08:28 | NUR ---
MD ARANA, BRISEIDA CARDIOLOGY AT BEDSIDE ROUNDING. PLAN OF CARE DISCUSSED WITH PATIENT.
--- NOTE | 2025-03-21 08:40 | PN ---
[facility] CARDIOLOGY PROGRESS NOTE Cardiology progress note dictated for Amauri De La Torre MD Date Patient Seen: Mar 21, 2025 PROBLEM LIST: Subdural hematoma along temporoparietal lobe with midline shift Hypertensive emergency on presentation Hypertension Dyslipidemia Zenker's diverticulum Hiatal hernia Hypothyroidism Coronary artery disease status post CABG x2 with JETER to the LAD and saphenous vein graft to the diagonal1 April 2019 Aortic stenosis status post TAVR with an Gonzalez Lifescience 26 mm TAVR valve 09/05/2024 2/2 grafts patent by follow-up cardiac catheterization June 2024 Normal LV systolic function with an LVEF of 55-60% by prior 2D echocardiogram [id number] infrapopliteal peripheral artery disease Interval History: The patient was weaned off Cardene drip 03/20. 12hr SBP 133-157mmHg Overnight, the patient became progressively confused and agitated. A code Man power was needed to be called to calm the patient. He underwent a CT of the head this morning and is pending a re-evaluation today by the neurosurgeon for possible evacuation of the subdural hematoma Physical Examination: GENERAL: No acute distress. HEAD: Normal with no signs of head trauma. EYES: Conjunctiva and sclera normal. NECK: Supple without JVD. Normal carotid upstrokes without bruits. LUNGS: Clear breath sounds bilaterally. No wheezes, or rhonchi. HEART: Normal rate and rhythm. Normal S1 and S2 without murmurs, gallop or rub. VASC: Peripheral pulses +2 bilaterally. EXT: No clubbing, cyanosis or edema. NEURO: Awake, alert, and oriented x3. No focal neurological deficits noted. Laboratory: Hematology Labs: Test 03/21/25 04:36 Range/Units White Blood Count 18.4 H 4.8-10.8 K/uL Red Blood Count 3.74 L 4.50-6.20 MIL/uL Hemoglobin 11.1 L 14.0-18.0 g/dL Hematocrit 33.3 L 42-54 % Mean Corpuscular Volume 89.0 79-99 fL Mean Corpuscular Hemoglobin 29.7 27.0-33.0 pg Mean Corpuscular Hemoglobin Concent 33.3 32.0-36.0 g/dL Red Cell Distribution Width 13.6 11.0-15.5 % Platelet Count 230 # 130-400 K/uL Mean Platelet Volume 11.6 H 7.5-10.5 fL Immature Granulocyte % (Auto) 0.7 0-1 % Neutrophils (%) (Auto) 89.8 H 40.0-77.0 % Lymphocytes (%) (Auto) 3.4 L 21.0-51.0 % Monocytes (%) (Auto) 6.0 3.0-13.0 % Eosinophils (%) (Auto) 0.0 0.0-8.0 % Basophils (%) (Auto) 0.1 0.0-5.0 % Neutrophils # (Auto) 16.5 H 1.8-7.7 K/uL Lymphocytes # (Auto) 0.6 L 1.0-4.8 K/uL Monocytes # (Auto) 1.1 H 0.1-1.0 K/uL Eosinophils # (Auto) 0.00 0.00-0.70 K/uL Basophils # (Auto) 0.02 0.00-0.20 K/uL Absolute Immature Granulocyte (auto 0.13 0-1 K/uL Nucleated Red Blood Cells 0.0 0.0-0.19 % Chemistry Labs: Test 03/21/25 05:52 03/21/25 04:36 03/20/25 04:30 Range/Units Whole Blood Glucose 104 70-110 MG/DL Sodium Level 139 136-145 mmol/L Potassium Level 4.0 3.5-5.1 mmol/L Chloride Level 103 101-111 mmol/L Carbon Dioxide Level 23 21-32 mmol/L Blood Urea Nitrogen 50 H 7-18 mg/dL Creatinine 1.2 0.5-1.3 mg/dL Glomerular Filtration Rate Calc 60 >90 mL/min Random Glucose 105 70-105 mg/dL Total Calcium 8.8 8.5-10.1 mg/dL Total Bilirubin 1.1 H 0.2-1.0 mg/dL Aspartate Amino Transf (AST/SGOT) 80 H 10-37 U/L Alanine Aminotransferase (ALT/SGPT) 38 12-78 U/L Alkaline Phosphatase 73 50-136 U/L Total Protein 6.8 6.0-8.3 g/dL Albumin 4.0 3.5-5.0 g/dL Magnesium Level 2.20 1.80-2.40 mg/dL Coagulation Labs: Test 03/20/25 04:30 Range/Units Prothrombin Time 11.4 9.6-11.6 SEC Prothromb Time International Ratio 1.08 0.85-1.15 Activated Partial Thromboplast Time 41.7 H 26.3-35.5 SEC Diagnostics / Radiology: Impression and Plan: Subdural hematoma along temporoparietal lobe with midline shift Hypertensive emergency on presentation Hypertension Dyslipidemia Zenker's diverticulum Hiatal hernia Hypothyroidism Coronary artery disease status post CABG x2 with JETER to the LAD and saphenous vein graft to the diagonal1 April 2019 Aortic stenosis status post TAVR with an Gonzalez Lifescience 26 mm TAVR valve 09/05/2024 2/2 grafts patent by follow-up cardiac catheterization June 2024 Normal LV systolic function with an LVEF of 55-60% by prior 2D echocardiogram [id number] infrapopliteal peripheral artery disease Continue to hold antiplatelet therapy. Continue Toprol 25mg daily and Amlodipine 5mg bid He underwent a CT of the head this morning and is pending a re-evaluation today by the neurosurgeon for possible evacuation of the subdural hematoma DEVANTE DIANE Mar 21, 2025 08:40
--- NOTE | 2025-03-21 11:10 | PN ---
[facility] PROGRESS NOTE Date Patient Seen: Mar 21, 2025 Time of Visit: 11:07 Supervising Physician: Dr Yg Agustin Primary Care Physician: Tiesha Vuong Outpatient Specialists: [ ] Inpatient Consults: [facility] neurosurgery Attending Dr Christianson PROBLEM LIST: Acute on chronic Subdural hematoma Hypertensive emergency, POA Normocytic anemia, POA Hyperglycemia, POA Comorbidities: Hyperlipidemia Zenker's diverticulum Hiatal hernia Hypothyroidism Coronary artery disease status post CABG x2 04/24 status post TAVR 09/05/2024 INTERVAL HISTORY: Patient was seen and examined he remains in room 217, sitter at bedside along with family members Patient was started on Precedex because of increased confusion overnight. However patient has returned back to baseline, he is alert and oriented and following commands And states that he is ready to proceed with the bur holes Reached out to Neurosurgery for let them know His vital signs are stable We will keep him NPO Plan: DDVAP at admit, he got 1 unit overnight of platelets preparing for his procedure today. He remains NPO for possible spenser holes We have got him on Precedex for some agitation but likely wean off We will follow him post procedure CT with any neurological changes Neuro checks per protocol Discussion with patient and family members at bedside. Critical care time 42 minutes, this time excludes any time spent on education or procedures performed. Patient at high risk for decompensation. REVIEW OF SYSTEMS: 12 point ROS reviewed with patient. Pertinent positives mentioned above. Otherwise negative. PHYSICAL EXAM: GENERAL: alert, weak, awake oriented x 3 HEENT: EOMI, Sclera non icteric, moist mucosa NECK: Supple, no JVD, trachea midline LUNGS: Clear breath sounds bilaterally. No wheezes HEART: Regular rate and rhythm. Normal S1 and S2, without murmurs ABD: Abdomen soft, nontender. Bowel sounds present EXT: No clubbing cyanosis or edema NEURO: Alert and oriented to person, follows commands Vital Signs (last 8hr) Date Time Temp Pulse Resp B/P (MAP) Pulse Ox O2 Delivery O2 Flow Rate FiO2 03/21/25 08:00 99 Room Air* 0 21 03/21/25 05:26 86 17 149/64 97 03/21/25 05:20 98.2 83 13 155/85 98 03/21/25 05:05 98.1 84 13 157/68 97 03/21/25 05:03 156/113 03/21/25 05:00 97.9 76 13 156/113 98 03/21/25 04:00 98 Room Air* 0 21 03/21/25 03:54 98.1 79 12 158/75 99 LABS: Hematology Labs: Test 03/21/25 04:36 Range/Units White Blood Count 18.4 H 4.8-10.8 K/uL Red Blood Count 3.74 L 4.50-6.20 MIL/uL Hemoglobin 11.1 L 14.0-18.0 g/dL Hematocrit 33.3 L 42-54 % Mean Corpuscular Volume 89.0 79-99 fL Mean Corpuscular Hemoglobin 29.7 27.0-33.0 pg Mean Corpuscular Hemoglobin Concent 33.3 32.0-36.0 g/dL Red Cell Distribution Width 13.6 11.0-15.5 % Platelet Count 230 # 130-400 K/uL Mean Platelet Volume 11.6 H 7.5-10.5 fL Immature Granulocyte % (Auto) 0.7 0-1 % Neutrophils (%) (Auto) 89.8 H 40.0-77.0 % Lymphocytes (%) (Auto) 3.4 L 21.0-51.0 % Monocytes (%) (Auto) 6.0 3.0-13.0 % Eosinophils (%) (Auto) 0.0 0.0-8.0 % Basophils (%) (Auto) 0.1 0.0-5.0 % Neutrophils # (Auto) 16.5 H 1.8-7.7 K/uL Lymphocytes # (Auto) 0.6 L 1.0-4.8 K/uL Monocytes # (Auto) 1.1 H 0.1-1.0 K/uL Eosinophils # (Auto) 0.00 0.00-0.70 K/uL Basophils # (Auto) 0.02 0.00-0.20 K/uL Absolute Immature Granulocyte (auto 0.13 0-1 K/uL Nucleated Red Blood Cells 0.0 0.0-0.19 % Chemistry Labs: Test 03/21/25 05:52 03/21/25 04:36 03/20/25 04:30 Range/Units Whole Blood Glucose 104 70-110 MG/DL Sodium Level 139 136-145 mmol/L Potassium Level 4.0 3.5-5.1 mmol/L Chloride Level 103 101-111 mmol/L Carbon Dioxide Level 23 21-32 mmol/L Blood Urea Nitrogen 50 H 7-18 mg/dL Creatinine 1.2 0.5-1.3 mg/dL Glomerular Filtration Rate Calc 60 >90 mL/min Random Glucose 105 70-105 mg/dL Total Calcium 8.8 8.5-10.1 mg/dL Total Bilirubin 1.1 H 0.2-1.0 mg/dL Aspartate Amino Transf (AST/SGOT) 80 H 10-37 U/L Alanine Aminotransferase (ALT/SGPT) 38 12-78 U/L Alkaline Phosphatase 73 50-136 U/L Total Protein 6.8 6.0-8.3 g/dL Albumin 4.0 3.5-5.0 g/dL Magnesium Level 2.20 1.80-2.40 mg/dL Coagulation Labs: Test 03/20/25 04:30 Range/Units Prothrombin Time 11.4 9.6-11.6 SEC Prothromb Time International Ratio 1.08 0.85-1.15 Activated Partial Thromboplast Time 41.7 H 26.3-35.5 SEC DIAGNOSTICS / RADIOLOGY RESULTS: [ ] PLAN NEURO: Minimize central acting medications as possible. Fall Precautions. Well lighted room through the day and minimize interruptions through the night to prevent acute delirium. PULMONARY: Supplemental 02 as needed Titrate Fio2 to keep Spo2 > or = 90% DuoNebs and CPT as needed IS hourly while awake for pulmonary hygiene Out of bed to chair as tolerated CARDIOVASCULAR: Follow hemodynamics. Titrate vasopressor to keep MAP >65 or systolic blood pressure >95mmHg DRIPS: cardene LINES: piv GI & NUTRITION: Continue nutritional support Aspirations precautions Prokinetic agents and laxatives as needed KIDNEYS & ELECTROLYTES: Strict monitoring of intake and output Daily weights Avoid nephrotoxic agents Monitor electrolytes and replace as needed Goal urine output of 30mL/hr or 0.5mL/kg/hr Urine output: [ ] Fluid Balance: [ ] ENDOCRINE: Maintain blood glucose between 100-180 at all times. Insulin sliding scale for blood glucose management INFECTIOUS DISEASE: Trend temperature. Leyva-culture if febrile. Micro: [ ] Antibiotics: [ ] HEMATOLOGY & COAGULATION: Monitor H&H. Keep Hgb > 7 Transfuse 1 unit of PRBC for Hgb < 7 Transfuse 1 pack of platelets of platelets < 20, 000 Watch for any signs and symptoms of bleeding SKIN: Pressure ulcer prevention per facility protocol Rehab: PT/OT Prophylaxis: GI: [ protonix] DVT: [ scd] Code Status: Full Resuscitation Disposition: [icu ] Case was discussed and seen with my supervising physician. The above plan was formulated and agreed upon. ORVILLE HICKMAN PAC Mar 21, 2025 11:10
--- NOTE | 2025-03-21 12:47 | HMCIMG ---
EXAM: CT Head Without IV contrast. CLINICAL HISTORY: CONFUSION, ALTERED MENTAL STATUS TECHNIQUE: Axial computed tomography images of the head/brain without intravenous contrast. COMPARISON: Dated 03/18. FINDINGS: BRAIN: There is a stable, large, [id number] subdural hematoma along the left cerebral convexity, involving the frontal, parietal, and temporal regions, with a maximal thickness of approximately 1.8 cm. There is marked mass effect with effacement of the adjacent cortical sulci and obliteration of the left lateral ventricle. A rightward midline shift of approximately 1.6 cm is noted. An associated right subfalcine herniation and mild left uncal herniation are present. Hypodense changes are seen within the deep white matter of the left cerebral hemisphere, consistent with vasogenic edema adjacent to the hematoma. No large territorial infarction is identified. No acute intraparenchymal hemorrhage or mass lesion is seen. The brainstem and cerebellum appear unremarkable. ORBITS: The orbits are unremarkable. SINUSES AND MASTOIDS: Mucosal thickening with an air fluid level in the left side of the sphenoidal sinus, suggestive of sinusitis. The rest of the paranasal sinuses and mastoid air cells are clear. BONES: No fracture. SOFT TISSUES: Unremarkable. IMPRESSION: 1. Large [id number] left cerebral convexity subdural hematoma with 1.6 cm rightward midline shift, associated right subfalcine herniation and mild left uncal herniation. 2. Vasogenic edema in the left cerebral hemisphere adjacent to the hematoma. /Lupton
--- NOTE | 2025-03-21 14:06 | NUR ---
Anesthesia MICA LAYER Rolo and OR nurse Zayra at bedside taking patient to OR. Friend Sylvia taking patients belonging to waiting area.
[2025-03-21] MEDS ORDERED: TRANEXAMIC ACID 1000MG/10ML ONE (14:17)
[2025-03-21] MEDS ORDERED: LIDOCAINE 1%-EPI 1:100,000 20 ML VIAL ONE (14:17)
[2025-03-21] MEDS ORDERED: BACITRACIN 28.4 GM OINT TP ONE (14:17)
[2025-03-21] MEDS: LIDOCAINE 1%-EPI 1:100,000 20 ML VIAL ONE (15:15)
[2025-03-21] MEDS: TRANEXAMIC ACID 1000MG/10ML ONE (15:15)
[2025-03-21] MEDS: VANCOMYCIN 1G/250ML KIT 250 ML IV ONE (16:07)
[2025-03-21] MEDS: SUGAMMADEX SODIUM 200 MG/2 ML VIAL IV ONE (16:11)
[2025-03-21] MEDS: 0.9%NACL 1000ML 1,000 ML IV SCH (16:40)
--- NOTE | 2025-03-21 20:51 | PN ---
INFECTIOUS DISEASE PROGRESS NOTE Date of Service: Mar 21, 2025 SUBJECTIVE: This is a 85-year-old male patient who was seen and examined at bedside in the ICU room 217. Per report patient had a confusion episode throughout the night requiring sitter observation. Pending re-evaluation from the Neurosurgeon for possible spenser hole procedure for today. Denying headache during visit today. Patient is afebrile, temperature is 97.9 and WBC still elevated at 18.4. Will continue to follow patient's care. PHYSICAL EXAM EYES: Anicteric. Pupils equal and reactive. HENT: No oral thrush seen, moist Oral mucosa. Headache. NECK: Supple, no JVD or thyromegaly. LUNGS: Good air entry. No rales, no rhonchi. CARDIOVASCULAR: S1, S2 regular. No murmur heard. ABDOMEN: Soft, non tender, bowel sounds present, no organomegaly. CENTRAL NERVOUS SYSTEM: Awake, alert, oriented x 3. SKIN: No rashes, no swelling. LYMPHATICS: No peripheral lymphadenopathy. MUSCULOSKELETAL: No joint swelling, erythema or tenderness. EXTREMITIES: No cyanosis or clubbing. Weakness. BACK: No deformity, no pressure ulcer. GENITOURINARY: No dysuria or hematuria. Vital Sign (Last 12 Hours) 03/21/25 03/21/25 03/21/25 03/21/25 09:00 09:30 10:00 10:30 Pulse 59 54 85 85 Resp 12 11 12 17 B/P (MAP) 133/56 (81) 149/51 (83) 140/55 (83) 142/64 (90) Pulse Ox 96 95 96 98 FiO2 21 21 03/21/25 03/21/25 03/21/25 03/21/25 11:00 11:30 12:00 12:00 Temp 97.7 Pulse 59 54 58 Resp 15 12 19 B/P (MAP) 149/57 (87) 140/50 (80) 136/59 (84) Pulse Ox 98 98 98 FiO2 21 21 21 03/21/25 03/21/25 03/21/25 03/21/25 12:00 12:30 13:00 15:45 Pulse 59 48 73 Resp 13 12 25 B/P (MAP) 142/56 (84) 123/51 (75) 157/81 Pulse Ox 98 99 95 99 O2 Delivery Room Air* Nonrebreathing Mask O2 Flow Rate 0 10.0 FiO2 21 03/21/25 03/21/25 03/21/25 03/21/25 16:00 16:15 16:15 16:30 Temp 97.7 Pulse 62 69 64 Resp 10 11 12 B/P (MAP) 140/50 144/68 138/59 Pulse Ox 100 98 100 99 O2 Delivery Nonrebreathing Mask Room Air* Nonrebreathing Mask Nonrebreathing Mask O2 Flow Rate 10.0 0 10.0 10.0 FiO2 21 03/21/25 03/21/25 03/21/25 03/21/25 17:00 17:30 18:00 18:30 Pulse 67 57 69 67 Resp 12 12 18 15 B/P (MAP) 142/66 129/48 103/61 130/52 Pulse Ox 98 97 98 99 O2 Delivery Nasal Cannula Nasal Cannula Nasal Cannula Nasal Cannula O2 Flow Rate 2.0 2.0 2.0 2.0 Intake & Output (last 24hrs) 03/20/25 03/20/25 03/21/25 15:00 23:00 07:00 Intake Total 800 ml 110 ml Output Total 400 ml 425 ml 650 ml Balance 400 ml -315 ml -650 ml LABS: Laboratory: Test 03/21/25 20:30 03/21/25 04:36 03/20/25 04:30 Range/Units Whole Blood Glucose 127 H 70-110 MG/DL White Blood Count 18.4 H 4.8-10.8 K/uL Red Blood Count 3.74 L 4.50-6.20 MIL/uL Hemoglobin 11.1 L 14.0-18.0 g/dL Hematocrit 33.3 L 42-54 % Mean Corpuscular Volume 89.0 79-99 fL Mean Corpuscular Hemoglobin 29.7 27.0-33.0 pg Mean Corpuscular Hemoglobin Concent 33.3 32.0-36.0 g/dL Red Cell Distribution Width 13.6 11.0-15.5 % Platelet Count 230 # 130-400 K/uL Mean Platelet Volume 11.6 H 7.5-10.5 fL Immature Granulocyte % (Auto) 0.7 0-1 % Neutrophils (%) (Auto) 89.8 H 40.0-77.0 % Lymphocytes (%) (Auto) 3.4 L 21.0-51.0 % Monocytes (%) (Auto) 6.0 3.0-13.0 % Eosinophils (%) (Auto) 0.0 0.0-8.0 % Basophils (%) (Auto) 0.1 0.0-5.0 % Neutrophils # (Auto) 16.5 H 1.8-7.7 K/uL Lymphocytes # (Auto) 0.6 L 1.0-4.8 K/uL Monocytes # (Auto) 1.1 H 0.1-1.0 K/uL Eosinophils # (Auto) 0.00 0.00-0.70 K/uL Basophils # (Auto) 0.02 0.00-0.20 K/uL Absolute Immature Granulocyte (auto 0.13 0-1 K/uL Nucleated Red Blood Cells 0.0 0.0-0.19 % Sodium Level 139 136-145 mmol/L Potassium Level 4.0 3.5-5.1 mmol/L Chloride Level 103 101-111 mmol/L Carbon Dioxide Level 23 21-32 mmol/L Blood Urea Nitrogen 50 H 7-18 mg/dL Creatinine 1.2 0.5-1.3 mg/dL Glomerular Filtration Rate Calc 60 >90 mL/min Random Glucose 105 70-105 mg/dL Total Calcium 8.8 8.5-10.1 mg/dL Total Bilirubin 1.1 H 0.2-1.0 mg/dL Aspartate Amino Transf (AST/SGOT) 80 H 10-37 U/L Alanine Aminotransferase (ALT/SGPT) 38 12-78 U/L Alkaline Phosphatase 73 50-136 U/L Total Protein 6.8 6.0-8.3 g/dL Albumin 4.0 3.5-5.0 g/dL Prothrombin Time 11.4 9.6-11.6 SEC Prothromb Time International Ratio 1.08 0.85-1.15 Activated Partial Thromboplast Time 41.7 H 26.3-35.5 SEC Magnesium Level 2.20 1.80-2.40 mg/dL ASSESSMENT: Subdural hematoma, nontraumatic. Hypertensive urgency. Dyslipidemia. Headache. PLAN: Continue IV steroids. Continue pain management. Continue Fall precautions. Continue antihypertensive. Neurosurgeon following patient and pending a spenser hole procedure. This case was reviewed and discussed with my supervising physician Dr. Monique and the above assessment and plan was formulated and agreed upon. ATTESTATION BY PHYSICIAN I have seen and examined the patient. I reviewed the documentation, medical decision making, and treatment plan as noted by the mid-level provider above. I agree with the findings and plan of care. RAJWINDER MONIQUE MD, MIRTA L [facility] Mar 21, 2025 20:51
[2025-03-22] VITALS (25 sets, daily range): BP systolic 131–185; BP diastolic 39–101; PULSE 46–75; RESP 12–34; TEMP 97.7–98.7; O2SAT 95–98
--- NOTE | 2025-03-22 01:10 | OP ---
DATE OF PROCEDURE: 03/21/2025 INDICATIONS: The patient is an 85-year-old male who has been admitted to the Emergency Room with chronic subdural hematoma. He was admitted for observation and medical stabilization as he is on chronic Plavix, which was held. Thereafter, the patient himself and other family members were addressed. They agreed and consented freely on the proposed surgery. PREOPERATIVE DIAGNOSIS: Left chronic subdural hematoma. POSTOPERATIVE DIAGNOSIS: Left chronic subdural hematoma. PROCEDURE: Left spenser hole and drainage of subdural hematoma. SURGEON: Duglas Franco M.D. ANESTHESIA: General. ESTIMATED BLOOD LOSS: Less than 50 mL. INTRAOPERATIVE COMPLICATIONS: None. FINDINGS: There was evidence of chronic subdural hematoma under significant pressure. DESCRIPTION OF PROCEDURE: The patient was brought to the operating room. Adequate general endotracheal anesthesia was achieved. IV antibiotics were given. Thereafter, he was positioned supine, head tilted to the right. The scalp was extensively shaved, prepped and draped in the usual sterile fashion. The incision delineated with the marking pen was infiltrated with lidocaine with epinephrine about 10 mL, and thereafter the incision was done with bipolar coagulation. Continued dissection was done. I used the Bovie to dissect the periosteum. The Weitlaner was positioned, and thereafter, the spenser hole was done. Bovie was used to achieve hemostasis. The bony debris was removed with irrigation and then the dura was opened with a Bovie and slowly releasing the subdural hematoma. Thereafter, I copiously irrigated the wound with a red rubber catheter in all quadrants until I was satisfied that there was no evidence of any more old blood, nor new. Copious irrigation was done. Thereafter, the scalp was closed with Vicryl 2 and then rubi for the skin. The patient tolerated the procedure well. There were no complications. Family members were addressed. TID: [id number] RECEIPT: [id number]
[2025-03-22 04:00] LABS: IMMATURE GRANULOCYTE ABSOLUTE 0.09 K/uL (0-1); NUCLEATED RED BLOOD CELLS 0.0 % (0.0-0.19); PLATELET COUNT (AUTO) 219 K/uL (130-400); RED BLOOD CELL COUNT(AUTO) 3.56 MIL/uL (4.50-6.20); RED CELL DISTRIBUTION WIDTH 13.6 % (11.0-15.5); WHITE BLOOD COUNT (AUTO) 16.1 K/uL (4.8-10.8)
[2025-03-22 04:20] LABS: ASPARTATE AMINOTRANSFERASE 64.0 U/L (10-37); CREATININE 1.1 mg/dL (0.5-1.3); GLOMERULAR FILTR. RATE CALC 67.0 mL/min (>90); GLUCOSE,RANDOM 105.0 mg/dL (70-105); SODIUM SERUM 139.0 mmol/L (136-145); TOTAL PROTEIN, SERUM 6.1 g/dL (6.0-8.3); UREA NITROGEN, BLOOD 48.0 mg/dL (7-18)
--- NOTE | 2025-03-22 09:44 | PN ---
[facility] PROGRESS NOTE Date Patient Seen: Mar 22, 2025 Time of Visit: 09:41 Supervising Physician: Dr Osiel Covarrubias Primary Care Physician: Tiesha Vuong Outpatient Specialists: [ ] Inpatient Consults: [facility] neurosurgery Attending Dr Christianson PROBLEM LIST: Status post spenser hole 03/21/2025 Acute on chronic Subdural hematoma Hypertensive emergency, POA Normocytic anemia, POA Hyperglycemia, POA Comorbidities: Hyperlipidemia Zenker's diverticulum Hiatal hernia Hypothyroidism Coronary artery disease status post CABG x2 04/24 status post TAVR 09/05/2024 INTERVAL HISTORY: Patient was seen and examined , patient has now moved to 216 post the spenser holes Nursing reports no acute events overnight Patient afebrile Patient is sitting comfortably at bedside chair with family present, he is reporting no headache or dizziness Fact he states he feels much better No drains Vital signs are stable Tolerating his diet Pending a CT scan this morning No neurological deficits Plan: Tolerating cardiac diet Neurovascular checks per protocol Off any Precedex Patient has no complaints, We are following neuro surgical postop protocol CT with any changes we are pending the a.m. CT Discussion with patient and family members at bedside. Total care time 39 minutes, this time excludes any time spent on education or procedures performed. REVIEW OF SYSTEMS: 12 point ROS reviewed with patient. Pertinent positives mentioned above. Otherwise negative. PHYSICAL EXAM: GENERAL: alert, weak, awake oriented x 3 HEENT: EOMI, Sclera non icteric, moist mucosa NECK: Supple, no JVD, trachea midline LUNGS: Clear breath sounds bilaterally. No wheezes HEART: Regular rate and rhythm. Normal S1 and S2, without murmurs ABD: Abdomen soft, nontender. Bowel sounds present EXT: No clubbing cyanosis or edema NEURO: Alert and oriented to person, follows commands Vital Signs (last 8hr) Date Time Temp Pulse Resp B/P (MAP) Pulse Ox O2 Delivery O2 Flow Rate FiO2 03/22/25 08:34 98.1 03/22/25 05:00 58 13 155/62 97 Nasal Cannula 2.0 03/22/25 04:00 97 Nasal Cannula* 2 28 03/22/25 04:00 98.1 57 13 150/69 98 Nasal Cannula 2.0 03/22/25 03:00 47 14 148/54 98 Nasal Cannula 2.0 03/22/25 02:00 57 13 150/59 98 Nasal Cannula 2.0 LABS: Hematology Labs: Test 03/22/25 03:44 Range/Units White Blood Count 16.1 H 4.8-10.8 K/uL Red Blood Count 3.56 L 4.50-6.20 MIL/uL Hemoglobin 10.7 L 14.0-18.0 g/dL Hematocrit 32.5 L 42-54 % Mean Corpuscular Volume 91.3 79-99 fL Mean Corpuscular Hemoglobin 30.1 27.0-33.0 pg Mean Corpuscular Hemoglobin Concent 32.9 32.0-36.0 g/dL Red Cell Distribution Width 13.6 11.0-15.5 % Platelet Count 219 130-400 K/uL Mean Platelet Volume 11.0 H 7.5-10.5 fL Immature Granulocyte % (Auto) 0.6 0-1 % Neutrophils (%) (Auto) 87.4 H 40.0-77.0 % Lymphocytes (%) (Auto) 1.9 L 21.0-51.0 % Monocytes (%) (Auto) 10.0 3.0-13.0 % Eosinophils (%) (Auto) 0.0 0.0-8.0 % Basophils (%) (Auto) 0.1 0.0-5.0 % Neutrophils # (Auto) 14.1 H 1.8-7.7 K/uL Lymphocytes # (Auto) 0.3 L 1.0-4.8 K/uL Monocytes # (Auto) 1.6 H 0.1-1.0 K/uL Eosinophils # (Auto) 0.00 0.00-0.70 K/uL Basophils # (Auto) 0.01 0.00-0.20 K/uL Absolute Immature Granulocyte (auto 0.09 0-1 K/uL Nucleated Red Blood Cells 0.0 0.0-0.19 % Chemistry Labs: Test 03/22/25 03:44 03/21/25 20:30 Range/Units Sodium Level 139 136-145 mmol/L Potassium Level 4.4 3.5-5.1 mmol/L Chloride Level 105 101-111 mmol/L Carbon Dioxide Level 25 21-32 mmol/L Blood Urea Nitrogen 48 H 7-18 mg/dL Creatinine 1.1 0.5-1.3 mg/dL Glomerular Filtration Rate Calc 67 >90 mL/min Random Glucose 105 70-105 mg/dL Total Calcium 8.4 L 8.5-10.1 mg/dL Magnesium Level 2.30 1.80-2.40 mg/dL Total Bilirubin 1.0 0.2-1.0 mg/dL Aspartate Amino Transf (AST/SGOT) 64 H 10-37 U/L Alanine Aminotransferase (ALT/SGPT) 44 12-78 U/L Alkaline Phosphatase 68 50-136 U/L Total Protein 6.1 6.0-8.3 g/dL Albumin 3.6 3.5-5.0 g/dL Whole Blood Glucose 127 H 70-110 MG/DL DIAGNOSTICS / RADIOLOGY RESULTS: [ ] PLAN NEURO: Minimize central acting medications as possible. Maintain fall precautions, adequate lighting during the day PULMONARY: Supplemental 02 as needed. Maintain aspiration precautions at all times CARDIOVASCULAR: Follow hemodynamics. Vital signs per facility protocol GI & NUTRITION: Continue with nutritional support. Continue stool softeners and laxatives as needed. KIDNEYS & ELECTROLYTES: Strict monitoring of intake, output and overall fluid balance. Avoid nephrotoxic medications to the extent possible. Medications to be dosed according to renal function. Monitor electrolytes and replace as needed ENDOCRINE: Maintain blood glucose between 100-180 at all times. Hypoglycemia protocol in place INFECTIOUS DISEASE: Trend temperature, WBC and procalcitonin level Follow cultures, deescalate antibiotics as soon as possible. Panculture if new onset fever ONCOLOGY/HEMATOLOGY/COAGULATION: Monitor for s/s of bleeding Monitor hemoglobin, coagulation studies as needed SKIN: Pressure ulcer prevention per facility protocol Specialty mattress ORTHO/REHAB: Continue PT/OT Prophylaxis: Continue GI and DVT prophylaxis Code Status: Full Resuscitation Disposition: [facility] Mar 22, 2025 09:44
--- NOTE | 2025-03-22 11:25 | NUR ---
[facility] ICU Skin Assessment: Patient assessed by wound healing team. Patient with no wounds or skin breakdown noted. Assessment and recommendations provided to primary nurse. Education provided. Addendum: 03/22/25 at 1134 by IVETH CROUCH RN RN/ Amended: Links added.
--- NOTE | 2025-03-22 13:18 | PN ---
PROGRESS NOTE PROBLEM LIST: Subdural hematoma along temporoparietal lobe with midline shift Hypertensive emergency on presentation Hypertension Dyslipidemia Zenker's diverticulum Hiatal hernia Hypothyroidism Coronary artery disease status post CABG x2 with JETER to the LAD and saphenous vein graft to the diagonal1 April 2019 Aortic stenosis status post TAVR with an Gonzalez Lifescience 26 mm TAVR valve 09/05/2024 2/2 grafts patent by follow-up cardiac catheterization June 2024 Normal LV systolic function with an LVEF of 55-60% by prior 2D echocardiogram [id number] infrapopliteal peripheral artery disease INTERIM HISTORY OF PRESENT ILLNESS: Patient did have surgery performed last night which were hole was placed by Dr. Quinn. Patient this morning feels significantly better. Patient is oriented to person place and time. Patient has ambulated. Patient has remained stable. They have held his beta katia secondary to bradycardia. Telemetry was unremarkable. REVIEW OF SYSTEMS: No fever, headache, chest pain, abdominal pain, nausea, vomiting, or diarrhea. VITAL SIGNS Vital Signs Date Time Temp Pulse Resp B/P (MAP) Pulse Ox O2 Delivery O2 Flow Rate FiO2 03/22/25 11:55 98.4 03/22/25 07:45 96 Room Air* 0 21 03/22/25 05:00 58 13 155/62 Laboratory Tests 03/22/25 03:44 LABS/MEDS Laboratory Tests Test 03/21/25 20:30 03/22/25 03:44 Whole Blood Glucose 127 MG/DL (70-110) H White Blood Count 16.1 K/uL (4.8-10.8) H Red Blood Count 3.56 MIL/uL (4.50-6.20) L Hemoglobin 10.7 g/dL (14.0-18.0) L Hematocrit 32.5 % (42-54) L Mean Corpuscular Volume 91.3 fL (79-99) Mean Corpuscular Hemoglobin 30.1 pg (27.0-33.0) Mean Corpuscular Hemoglobin Concent 32.9 g/dL (32.0-36.0) Red Cell Distribution Width 13.6 % (11.0-15.5) Platelet Count 219 K/uL (130-400) Mean Platelet Volume 11.0 fL (7.5-10.5) H Immature Granulocyte % (Auto) 0.6 % (0-1) Neutrophils (%) (Auto) 87.4 % (40.0-77.0) H Lymphocytes (%) (Auto) 1.9 % (21.0-51.0) L Monocytes (%) (Auto) 10.0 % (3.0-13.0) Eosinophils (%) (Auto) 0.0 % (0.0-8.0) Basophils (%) (Auto) 0.1 % (0.0-5.0) Neutrophils # (Auto) 14.1 K/uL (1.8-7.7) H Lymphocytes # (Auto) 0.3 K/uL (1.0-4.8) L Monocytes # (Auto) 1.6 K/uL (0.1-1.0) H Eosinophils # (Auto) 0.00 K/uL (0.00-0.70) Basophils # (Auto) 0.01 K/uL (0.00-0.20) Absolute Immature Granulocyte (auto 0.09 K/uL (0-1) Nucleated Red Blood Cells 0.0 % (0.0-0.19) Sodium Level 139 mmol/L (136-145) Potassium Level 4.4 mmol/L (3.5-5.1) Chloride Level 105 mmol/L (101-111) Carbon Dioxide Level 25 mmol/L (21-32) Blood Urea Nitrogen 48 mg/dL (7-18) H Creatinine 1.1 mg/dL (0.5-1.3) Glomerular Filtration Rate Calc 67 mL/min (>90) Random Glucose 105 mg/dL (70-105) Total Calcium 8.4 mg/dL (8.5-10.1) L Magnesium Level 2.30 mg/dL (1.80-2.40) Total Bilirubin 1.0 mg/dL (0.2-1.0) Aspartate Amino Transf (AST/SGOT) 64 U/L (10-37) H Alanine Aminotransferase (ALT/SGPT) 44 U/L (12-78) Alkaline Phosphatase 68 U/L (50-136) Total Protein 6.1 g/dL (6.0-8.3) Albumin 3.6 g/dL (3.5-5.0) Current Medications Sodium Chloride 1,000 ml @ 0 mls/hr ONCE ONCE IV Last administered on 03/18/25at 09:38; Start 03/18/25 at 08:30; Stop 03/18/25 at 08:31; Status DC Acetaminophen 1,000 mg ONCE ONCE PO Last administered on 03/18/25at 09:37; Start 03/18/25 at 08:30; Stop 03/18/25 at 08:31; Status DC Dexamethasone Sodium Phosphate 4 mg ONCE ONCE IV Last administered on 03/18/25at 11:14; Start 03/18/25 at 10:00; Stop 03/18/25 at 10:01; Status DC Nicardipine HCl 25 mg/Sodium Chloride 250 ml @ 0 mls/hr PROTOCOL IV Last administered on 03/20/25at 02:30; Start 03/18/25 at 10:00; Stop 04/17/25 at 09:59 Mannitol 19 gm ONCE ONCE IV Last administered on 03/18/25at 11:16; Start 03/18/25 at 10:30; Stop 03/18/25 at 10:31; Status DC Acetaminophen 650 mg Q4H PRN PO; Start 03/18/25 at 10:30; Stop 04/17/25 at 10:29 Ondansetron HCl 4 mg Q6H PRN IVP; Start 03/18/25 at 10:30; Stop 03/22/25 at 11:00; Status DC Insulin Human Regular INSULIN SLIDING SCAL... ACHS SQ; Start 03/18/25 at 11:30; Stop 04/17/25 at 11:29 Alprazolam 0.25 mg ONCE ONCE PO Last administered on 03/18/25at 14:59; Start 03/18/25 at 12:30; Stop 03/18/25 at 12:31; Status DC Dexamethasone Sodium Phosphate 4 mg Q8H IV Last administered on 03/22/25at 12:10; Start 03/18/25 at 20:00; Stop 04/17/25 at 19:59 Citalopram Hydrobromide 20 mg ONCE ONCE PO Last administered on 03/18/25at 23:03; Start 03/18/25 at 23:00; Stop 03/18/25 at 23:01; Status DC Amlodipine Besylate 5 mg BID PO Last administered on 03/22/25at 08:49; Start 03/19/25 at 09:00; Stop 04/18/25 at 08:59 Metoprolol Succinate 25 mg BID PO Last administered on 03/21/25at 20:54; Start 03/19/25 at 09:00; Stop 04/18/25 at 08:59 Desmopressin Acetate 20 mcg/ Sodium Chloride 55 ml @ 100 mls/hr ONCE ONCE IJ Last administered on 03/19/25at 13:36; Start 03/19/25 at 13:30; Stop 03/19/25 at 14:02; Status DC Citalopram Hydrobromide 20 mg HS PO Last administered on 03/21/25at 20:54; Start 03/19/25 at 21:00; Stop 04/18/25 at 20:59 Acetaminophen 650 mg Q4H PRN PO; Start 03/20/25 at 08:30; Stop 04/19/25 at 08:29 Hydralazine HCl 10 mg Q4H PRN IV Last administered on 03/21/25at 05:03; Start 03/20/25 at 14:00; Stop 04/19/25 at 13:59 Labetalol HCl 10 mg Q6H PRN IV; Start 03/20/25 at 14:00; Stop 03/22/25 at 11:00; Status DC Diazepam 10 mg STK-MED ONCE .ROUTE; Start 03/21/25 at 06:22; Stop 03/21/25 at 06:22; Status DC Diazepam 2.5 mg ONCE ONCE IVP Last administered on 03/21/25at 06:30; Start 03/21/25 at 06:30; Stop 03/21/25 at 06:31; Status DC Lidocaine HCl 100 mg STK-MED ONCE .ROUTE; Start 03/21/25 at 06:29; Stop 03/21/25 at 06:29; Status DC Ondansetron HCl 4 mg STK-MED ONCE .ROUTE; Start 03/21/25 at 06:29; Stop 03/21/25 at 06:29; Status DC Succinylcholine Chloride 200 mg STK-MED ONCE .ROUTE; Start 03/21/25 at 06:30; Stop 03/21/25 at 06:30; Status DC Propofol 200 mg STK-MED ONCE IV; Start 03/21/25 at 06:30; Stop 03/21/25 at 06:30; Status DC Dexamethasone Sodium Phosphate 10 mg STK-MED ONCE .ROUTE; Start 03/21/25 at 06:30; Stop 03/21/25 at 06:30; Status DC Glycopyrrolate 1 mg STK-MED ONCE .ROUTE; Start 03/21/25 at 06:30; Stop 03/21/25 at 06:30; Status DC Neostigmine Methylsulfate 10 mg STK-MED ONCE IV; Start 03/21/25 at 06:30; Stop 03/21/25 at 06:30; Status DC Rocuronium [place] 50 mg STK-MED ONCE .ROUTE; Start 03/21/25 at 06:30; Stop 03/21/25 at 06:31; Status DC Fentanyl Citrate 100 mcg STK-MED ONCE .ROUTE; Start 03/21/25 at 06:31; Stop 03/21/25 at 06:31; Status DC Midazolam HCl 2 mg STK-MED ONCE .ROUTE; Start 03/21/25 at 06:31; Stop 03/21/25 at 06:31; Status DC Ketamine HCl 50 mg STK-MED ONCE .ROUTE; Start 03/21/25 at 06:32; Stop 03/21/25 at 06:32; Status DC Tranexamic Acid 1,000 mg STK-MED ONCE .ROUTE Last administered on 03/21/25at 15:15; Start 03/21/25 at 06:34; Stop 03/21/25 at 06:34; Status DC Neomycin/ Polymyxin/ Bacitracin 14 appl STK-MED ONCE TP; Start 03/21/25 at 06:35; Stop 03/21/25 at 06:35; Status DC Vancomycin HCl 250 ml @ As Directed STK-MED ONCE IV; Start 03/21/25 at 06:35; Stop 03/21/25 at 06:35; Status DC Lidocaine/ Epinephrine 20 ml STK-MED ONCE .ROUTE Last administered on 03/21/25at 15:15; Start 03/21/25 at 06:35; Stop 03/21/25 at 06:35; Status DC Tobramycin Sulfate 1.2 gm STK-MED ONCE .ROUTE Last administered on 03/21/25at 15:15; Start 03/21/25 at 06:35; Stop 03/21/25 at 06:35; Status DC Thrombin 20,000 unit STK-MED ONCE TP; Start 03/21/25 at 06:35; Stop 03/21/25 at 06:35; Status DC Phenylephrine HCl 10 mg STK-MED ONCE IV; Start 03/21/25 at 06:40; Stop 03/21/25 at 06:40; Status DC Diazepam 2.5 mg ONCE ONCE IVP; Start 03/21/25 at 07:30; Stop 03/21/25 at 07:31; Status DC Dexmedetomidine/ Sodium Chloride 400 mcg STK-MED ONCE IV Last administered on 03/21/25at 08:42; Start 03/21/25 at 08:02; Stop 03/21/25 at 08:02; Status DC Ondansetron HCl 4 mg STK-MED ONCE .ROUTE; Start 03/21/25 at 14:10; Stop 03/21/25 at 14:11; Status DC Propofol 200 mg STK-MED ONCE IV; Start 03/21/25 at 14:11; Stop 03/21/25 at 14:11; Status DC Rocuronium [place] 50 mg STK-MED ONCE .ROUTE; Start 03/21/25 at 14:11; Stop 03/21/25 at 14:11; Status DC Fentanyl Citrate 100 mcg STK-MED ONCE .ROUTE; Start 03/21/25 at 14:11; Stop 03/21/25 at 14:11; Status DC Tranexamic Acid 1,000 mg STK-MED ONCE .ROUTE; Start 03/21/25 at 14:17; Stop 03/21/25 at 14:17; Status DC Bacitracin 28.4 gm STK-MED ONCE TP; Start 03/21/25 at 14:17; Stop 03/21/25 at 14:17; Status DC Vancomycin HCl 250 ml @ As Directed STK-MED ONCE IV; Start 03/21/25 at 14:17; Stop 03/21/25 at 14:17; Status DC Bupivacaine HCl 2.5 mg STK-MED ONCE IJ Last administered on 03/21/25at 15:15; Start 03/21/25 at 14:17; Stop 03/21/25 at 14:17; Status DC Lidocaine/ Epinephrine 20 ml STK-MED ONCE .ROUTE; Start 03/21/25 at 14:17; Stop 03/21/25 at 14:17; Status DC Tobramycin Sulfate 1.2 gm STK-MED ONCE .ROUTE; Start 03/21/25 at 14:18; Stop 03/21/25 at 14:18; Status DC Thrombin 20,000 unit STK-MED ONCE TP; Start 03/21/25 at 14:41; Stop 03/21/25 at 14:42; Status DC Vancomycin HCl 250 ml @ As Directed STK-MED ONCE IV; Start 03/21/25 at 14:54; Stop 03/21/25 at 14:54; Status DC Ondansetron HCl 4 mg STK-MED ONCE .ROUTE; Start 03/21/25 at 15:10; Stop 03/21/25 at 15:10; Status DC Fentanyl Citrate 100 mcg STK-MED ONCE .ROUTE; Start 03/21/25 at 15:43; Stop 03/21/25 at 15:43; Status DC Acetaminophen 100 ml @ As Directed STK-MED ONCE .ROUTE; Start 03/21/25 at 15:43; Stop 03/21/25 at 15:43; Status DC Acetaminophen/ Codeine Phosphate 1 tab Q4H PRN PO; Start 03/21/25 at 16:30; Stop 04/20/25 at 16:29 Ondansetron HCl 4 mg Q6H PRN IVP; Start 03/21/25 at 16:30; Stop 04/20/25 at 16:29 Hydromorphone HCl 0.5 mg Q4H PRN IVP; Start 03/21/25 at 16:30; Stop 03/26/25 at 16:29 Cefazolin Sodium 1 gm Q8H IVPB Last administered on 03/22/25at 08:49; Start 03/21/25 at 16:30; Stop 03/22/25 at 18:00 Sodium Chloride 1,000 ml @ 43 mls/hr [id number] IV Last administered on 03/21/25at 16:40; Start 03/21/25 at 16:30; Stop 03/22/25 at 12:05; Status DC Cefazolin Sodium 1 gm STK-MED ONCE .ROUTE; Start 03/21/25 at 16:34; Stop 03/21/25 at 16:33; Status DC PHYSICAL EXAMINATION: GENERAL: No acute distress. HEENT: Left side of temporal region is covered after spenser hole placement and evacuation of subdural hematoma CARDIAC: Positive S1 and S2. No murmurs. LUNGS: Clear to auscultation bilaterally. ABDOMEN: Bowel sounds present, soft, nontender. EXTREMITIES: No edema bilaterally. NEUROLOGIC: Cranial nerves 2-12 grossly intact. PSYCHIATRIC: Calm. TELEMETRY: Sinus rhythm ASSESSMENT: Postop subdural hematoma day 1 status post spenser hole placement Subdural hematoma along temporoparietal lobe with midline shift Hypertensive emergency on presentation Hypertension Dyslipidemia Zenker's diverticulum Hiatal hernia Hypothyroidism Coronary artery disease status post CABG x2 with JETER to the LAD and saphenous vein graft to the diagonal1 April 2019 Aortic stenosis status post TAVR with an Gonzalez Lifescience 26 mm TAVR valve 09/05/2024 2/2 grafts patent by follow-up cardiac catheterization June 2024 Normal LV systolic function with an LVEF of 55-60% by prior 2D echocardiogram [id number] infrapopliteal peripheral artery disease PLAN: Cardiac-ruiz patient remained stable. Patient can be dismissed to rehab as the discretion of Neurosurgery and primary team. Patient should follow up to see us in the clinic in 2-4 weeks. Continue to stay off of dual antiplatelet therapy. We will sign off call with any questions. BRISEIDA ARANA MD Mar 22, 2025 13:18
--- NOTE | 2025-03-22 17:54 | HMCIMG ---
EXAM: CT Head Without IV contrast. CLINICAL HISTORY: Post spenser hole hematoma removal. TECHNIQUE: Axial computed tomography images of the head/brain without intravenous contrast. COMPARISON: Dated 03/21/25. FINDINGS: BRAIN: Left parietal spenser hole and subdural hematoma evacuation status. Moderate postoperative pneumocephalus noted along the left opfrzy-pqyvwmc-nktlyglc convexity. A rightward midline shift of approximately 7 cm and right subfalcine herniation noted. No large territorial infarction is identified. No acute intraparenchymal hemorrhage or mass lesion is seen. The brainstem and cerebellum appear unremarkable. ORBITS: The orbits are unremarkable. SINUSES AND MASTOIDS: Mucosal thickening with an air fluid level in the left side of the sphenoidal sinus, suggestive of sinusitis. The rest of the paranasal sinuses and mastoid air cells are clear. BONES: No fracture. SOFT TISSUES: Mild postoperative edema and surgical emphysema along the left frontoparietal scalp. IMPRESSION: Interval left parietal bur hole with evacuation of the subdural hematoma. Mild interval reduction of the mass-effect and right-sided midline shift. /Foley
--- NOTE | 2025-03-22 21:42 | PN ---
INFECTIOUS DISEASE PROGRESS NOTE Date of Service: Mar 22, 2025 SUBJECTIVE: This is a 85-year-old male patient who was seen and examined at bedside in the ICU room 216. Patient is awake, alert and oriented x3. Patient is status post left spenser hole and drainage of subdural hematoma day # 1. Very minimal bleeding observe on the dressing to the left side of the head. Denying headache. No nausea or vomiting. Patient was sitting up on the bedside chair in no distress. Family member visiting at bedside. We will have case management evaluate for referral to [facility] inpatient rehab. Patient was informed of this plan. PHYSICAL EXAM EYES: Anicteric. Pupils equal and reactive. HENT: No oral thrush seen, moist Oral mucosa. Headache. NECK: Supple, no JVD or thyromegaly. LUNGS: Good air entry. No rales, no rhonchi. CARDIOVASCULAR: S1, S2 regular. No murmur heard. ABDOMEN: Soft, non tender, bowel sounds present, no organomegaly. CENTRAL NERVOUS SYSTEM: Awake, alert, oriented x 3. SKIN: No rashes, no swelling. LYMPHATICS: No peripheral lymphadenopathy. MUSCULOSKELETAL: No joint swelling, erythema or tenderness. EXTREMITIES: No cyanosis or clubbing. Weakness. BACK: No deformity, no pressure ulcer. GENITOURINARY: No dysuria or hematuria. Vital Sign (Last 12 Hours) 03/22/25 03/22/25 03/22/25 03/22/25 10:00 11:00 11:55 12:00 Temp 98.4 Pulse 52 52 48 Resp 13 13 12 B/P (MAP) 131/69 131/69 137/59 Pulse Ox 98 98 98 O2 Delivery Room Air Room Air Room Air FiO2 21 21 21 03/22/25 03/22/25 03/22/25 03/22/25 12:00 13:00 15:00 16:00 Temp 98.8 Pulse 63 71 53 Resp 15 22 14 B/P (MAP) 152/76 154/101 152/47 Pulse Ox 95 97 98 99 O2 Delivery Room Air* Room Air Room Air Room Air O2 Flow Rate 0 FiO2 21 21 03/22/25 03/22/25 03/22/25 19:00 20:00 20:34 Temp 97.7 Pulse 67 56 Resp 17 14 B/P (MAP) 185/71 162/66 Pulse Ox 98 97 97 O2 Delivery Room Air Room Air Room Air* O2 Flow Rate 0 FiO2 21 Intake & Output (last 24hrs) 03/21/25 03/21/25 03/22/25 15:00 23:00 07:00 Intake Total 103.8 ml 844.0 ml 215.0 ml Output Total 500 ml 150 ml 750 ml Balance -396.2 ml 694.0 ml -535.0 ml LABS: Laboratory: Test 03/22/25 03:44 03/21/25 20:30 Range/Units White Blood Count 16.1 H 4.8-10.8 K/uL Red Blood Count 3.56 L 4.50-6.20 MIL/uL Hemoglobin 10.7 L 14.0-18.0 g/dL Hematocrit 32.5 L 42-54 % Mean Corpuscular Volume 91.3 79-99 fL Mean Corpuscular Hemoglobin 30.1 27.0-33.0 pg Mean Corpuscular Hemoglobin Concent 32.9 32.0-36.0 g/dL Red Cell Distribution Width 13.6 11.0-15.5 % Platelet Count 219 130-400 K/uL Mean Platelet Volume 11.0 H 7.5-10.5 fL Immature Granulocyte % (Auto) 0.6 0-1 % Neutrophils (%) (Auto) 87.4 H 40.0-77.0 % Lymphocytes (%) (Auto) 1.9 L 21.0-51.0 % Monocytes (%) (Auto) 10.0 3.0-13.0 % Eosinophils (%) (Auto) 0.0 0.0-8.0 % Basophils (%) (Auto) 0.1 0.0-5.0 % Neutrophils # (Auto) 14.1 H 1.8-7.7 K/uL Lymphocytes # (Auto) 0.3 L 1.0-4.8 K/uL Monocytes # (Auto) 1.6 H 0.1-1.0 K/uL Eosinophils # (Auto) 0.00 0.00-0.70 K/uL Basophils # (Auto) 0.01 0.00-0.20 K/uL Absolute Immature Granulocyte (auto 0.09 0-1 K/uL Nucleated Red Blood Cells 0.0 0.0-0.19 % Sodium Level 139 136-145 mmol/L Potassium Level 4.4 3.5-5.1 mmol/L Chloride Level 105 101-111 mmol/L Carbon Dioxide Level 25 21-32 mmol/L Blood Urea Nitrogen 48 H 7-18 mg/dL Creatinine 1.1 0.5-1.3 mg/dL Glomerular Filtration Rate Calc 67 >90 mL/min Random Glucose 105 70-105 mg/dL Total Calcium 8.4 L 8.5-10.1 mg/dL Magnesium Level 2.30 1.80-2.40 mg/dL Total Bilirubin 1.0 0.2-1.0 mg/dL Aspartate Amino Transf (AST/SGOT) 64 H 10-37 U/L Alanine Aminotransferase (ALT/SGPT) 44 12-78 U/L Alkaline Phosphatase 68 50-136 U/L Total Protein 6.1 6.0-8.3 g/dL Albumin 3.6 3.5-5.0 g/dL Whole Blood Glucose 127 H 70-110 MG/DL ASSESSMENT: Subdural hematoma, nontraumatic, status post left spenser hole and drainage of subdural hematoma. Hypertensive urgency. Dyslipidemia. Headache. PLAN: Case management evaluation for referral to [facility] inpatient rehab. Continue IV steroids. Continue pain management. Continue Fall precautions. Continue antihypertensive. This case was reviewed and discussed with my supervising physician Dr. Monique and the above assessment and plan was formulated and agreed upon. ATTESTATION BY PHYSICIAN I have seen and examined the patient. I reviewed the documentation, medical decision making, and treatment plan as noted by the mid-level provider above. I agree with the findings and plan of care. RAJWINDER MONIQUE MD, [facility] Mar 22, 2025 21:41
[2025-03-23] VITALS (9 sets, daily range): BP systolic 131–165; BP diastolic 50–68; PULSE 49–62; RESP 16–18; TEMP 97.4–98.3; O2SAT 97–98
[2025-03-23 04:48] LABS: IMMATURE GRANULOCYTE ABSOLUTE 0.06 K/uL (0-1); NUCLEATED RED BLOOD CELLS 0.0 % (0.0-0.19); PLATELET COUNT (AUTO) 217 K/uL (130-400); RED BLOOD CELL COUNT(AUTO) 3.77 MIL/uL (4.50-6.20); RED CELL DISTRIBUTION WIDTH 13.2 % (11.0-15.5); WHITE BLOOD COUNT (AUTO) 12.1 K/uL (4.8-10.8)
[2025-03-23 05:03] LABS: ASPARTATE AMINOTRANSFERASE 45.0 U/L (10-37); CREATININE 1.3 mg/dL (0.5-1.3); GLOMERULAR FILTR. RATE CALC 55.0 mL/min (>90); GLUCOSE,RANDOM 100.0 mg/dL (70-105); SODIUM SERUM 140.0 mmol/L (136-145); TOTAL PROTEIN, SERUM 6.2 g/dL (6.0-8.3); UREA NITROGEN, BLOOD 45.0 mg/dL (7-18)
--- NOTE | 2025-03-23 11:42 | NUR ---
[facility] Clinical updates sent to Holli @ [facility] per her request. Official acceptance is still pending along w MOT information.
--- NOTE | 2025-03-23 13:00 | NUR ---
[facility] Per Holli w [facility] pt has been clinically accepted. MOT information received/filled out and left in chart pending Md signature.
--- NOTE | 2025-03-23 23:27 | PN ---
INFECTIOUS DISEASE FOLLOWUP NOTE DATE OF SERVICE: 03/23/2025 SUBJECTIVE: The patient is seen and examined at bedside today. The patient has no fever, no chills. No nausea. No vomiting. No sore throat. No rhinorrhea. No bleeding dependency. No depression or anxiety. ____. PHYSICAL EXAMINATION: VITAL SIGNS: Temperature 97.5. EYES: No icterus. Pupils equal and reactive. HENT: No oral thrush seen. Moist oral mucosa. NECK: Supple. No JVD or thyromegaly. LUNGS: Good air entry. No rales. No rhonchi. CARDIOVASCULAR: S1 and S2, regular. No murmur heard ABDOMEN: Soft, nontender. Bowed sound is present. CENTRAL NERVOUS SYSTEM: Awake, alert, and oriented x3. No focal deficits. SKIN: No rashes. LYMPHATIC: No peripheral lymphadenopathy. BACK: No deformity. No pressure ulcer. MUSCULOSKELETAL: No joint swelling, erythema or tenderness. HEMATOLOGIC: No bleeding or petechial lesions seen. ASSESSMENT: An 85-year-old male with: * ____ confusion. * Hypertension. * Subdural hematoma. * Obesity. * Hypothyroidism. * ____. PLAN: * Continue pain management. * Continue nutritional support. * We will continue GI prophylaxis. * . * The patient will be followed closely. TID: [id number] RECEIPT: [id number]
[2025-03-24 00:25] VITALS: BP 129/71
[2025-03-24 03:25] VITALS: BP 151/67; PULSE 59; RESP 16; TEMP 97.7
[2025-03-24 03:41] LABS: IMMATURE GRANULOCYTE ABSOLUTE 0.04 K/uL (0-1); NUCLEATED RED BLOOD CELLS 0.0 % (0.0-0.19); PLATELET COUNT (AUTO) 173 K/uL (130-400); RED BLOOD CELL COUNT(AUTO) 3.46 MIL/uL (4.50-6.20); RED CELL DISTRIBUTION WIDTH 13.2 % (11.0-15.5); WHITE BLOOD COUNT (AUTO) 8.5 K/uL (4.8-10.8)
[2025-03-24 04:18] LABS: ASPARTATE AMINOTRANSFERASE 33.0 U/L (10-37); CREATININE 1.2 mg/dL (0.5-1.3); GLOMERULAR FILTR. RATE CALC 60.0 mL/min (>90); GLUCOSE,RANDOM 102.0 mg/dL (70-105); SODIUM SERUM 138.0 mmol/L (136-145); TOTAL PROTEIN, SERUM 5.5 g/dL (6.0-8.3); UREA NITROGEN, BLOOD 45.0 mg/dL (7-18)
[2025-03-24 07:35] VITALS: BP 144/47; PULSE 52; RESP 16; TEMP 98.5
[2025-03-24 08:00] VITALS: O2SAT 99
--- NOTE | 2025-03-24 10:54 | NUR ---
SPOKE WITH DR. KAITLIN Pedersen REGARDING PATIENT HR (BRADYCARDIA). DR. MADRIGAL ORDERED TO CHANGE TOPROL XL 25MG BID TO TOPROL XL 25MG DAILY. TORB ENTERED AND IMPLEMENTED. NOTIFIED THAT PT PENDING TO BE DC TODAY TO [facility].
[2025-03-24 12:16] VITALS: BP 151/57; PULSE 50; RESP 16; TEMP 98.1
[2025-03-24 12:36] VITALS: PULSE 57
--- NOTE | 2025-03-24 12:37 | NUR ---
CALLED REPORT TO [facility], GAVE REPORT TO NURSE LALO. ALL QUESTIONS ANSWERED.
--- NOTE | 2025-03-24 13:03 | NUR ---
PATIENT ALERT AND ORIENTEDX4 WITH FRIEND AT BEDSIDE BEING DISCHARGED TO [facility] VIA PRIVATE VEHICLE. PATIENT EDUCATED TO GO STRAIGHT TO [facility] WITHOUT ANY OTHER STOPS IN BETWEEN.EDUCATED TO FOLLOW UP WITH DR. ARANA IN 2-4 WEEKS. EDUCATED ON MEDICATION LIST, TO STOP TAKING DAPT PER MD ORDER. IV REMOVED WITHOUT COMPLICATIONS. ALL QUESTIONS ANSWERED. PATIENT AND FRIEND VERBALIZED UNDERSTANDING. FRIEND EVELINE AT BEDSIDE IS THE ONE TAKING PATIENT TO [facility]. PATIENT GATHERED ALL BELONGINGS AND TOOK WITH HIM AT MO. PATIENT IS TAKING WITH HIM CHART COPY AND MOT TO BE GIVEN TO NURSE AT [facility].
--- NOTE | 2025-03-24 13:09 | NUR ---
PATIENT WHEELED DOWN TO PRIVATE CAR.
--- NOTE | 2025-03-24 13:48 | PN ---
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 Total care time 36 minutes, this time excludes any time spent on education or procedures performed. REVIEW OF SYSTEMS: 12 point ROS reviewed with patient. Pertinent positives mentioned above. Otherwise negative. PHYSICAL EXAM: GENERAL: alert, weak, awake oriented x 3 HEENT: EOMI, Sclera non icteric, moist mucosa NECK: Supple, no JVD, trachea midline LUNGS: Clear breath sounds bilaterally. No wheezes HEART: Regular rate and rhythm. Normal S1 and S2, without murmurs ABD: Abdomen soft, nontender. Bowel sounds present EXT: No clubbing cyanosis or edema NEURO: Alert and oriented to person, follows commands Vital Signs (last 8hr) Date Time Temp Pulse Resp B/P (MAP) Pulse Ox O2 Delivery O2 Flow Rate FiO2 03/24/25 12:36 57 03/24/25 12:16 98.1 50 16 151/57 99 Room Air 03/24/25 08:00 99 Room Air* 0 21 03/24/25 07:35 98.4 52 16 144/47 99 Room Air LABS: Hematology Labs: Test 03/24/25 03:24 Range/Units White Blood Count 8.5 # 4.8-10.8 K/uL Red Blood Count 3.46 L 4.50-6.20 MIL/uL Hemoglobin 10.1 L 14.0-18.0 g/dL Hematocrit 31.7 L 42-54 % Mean Corpuscular Volume 91.6 79-99 fL Mean Corpuscular Hemoglobin 29.2 27.0-33.0 pg Mean Corpuscular Hemoglobin Concent 31.9 L 32.0-36.0 g/dL Red Cell Distribution Width 13.2 11.0-15.5 % Platelet Count 173 130-400 K/uL Mean Platelet Volume 11.2 H 7.5-10.5 fL Immature Granulocyte % (Auto) 0.5 0-1 % Neutrophils (%) (Auto) 89.2 H 40.0-77.0 % Lymphocytes (%) (Auto) 4.6 L 21.0-51.0 % Monocytes (%) (Auto) 5.5 3.0-13.0 % Eosinophils (%) (Auto) 0.2 0.0-8.0 % Basophils (%) (Auto) 0.0 0.0-5.0 % Neutrophils # (Auto) 7.6 1.8-7.7 K/uL Lymphocytes # (Auto) 0.4 L 1.0-4.8 K/uL Monocytes # (Auto) 0.5 0.1-1.0 K/uL Eosinophils # (Auto) 0.02 0.00-0.70 K/uL Basophils # (Auto) 0.00 0.00-0.20 K/uL Absolute Immature Granulocyte (auto 0.04 0-1 K/uL Nucleated Red Blood Cells 0.0 0.0-0.19 % Chemistry Labs: Test 03/24/25 05:04 03/24/25 03:24 03/23/25 04:36 Range/Units Whole Blood Glucose 89 70-110 MG/DL Sodium Level 138 136-145 mmol/L Potassium Level 4.4 3.5-5.1 mmol/L Chloride Level 104 101-111 mmol/L Carbon Dioxide Level 27 21-32 mmol/L Blood Urea Nitrogen 45 H 7-18 mg/dL Creatinine 1.2 0.5-1.3 mg/dL Glomerular Filtration Rate Calc 60 >90 mL/min Random Glucose 102 70-105 mg/dL Total Calcium 8.1 L 8.5-10.1 mg/dL Total Bilirubin 0.8 # 0.2-1.0 mg/dL Aspartate Amino Transf (AST/SGOT) 33 10-37 U/L Alanine Aminotransferase (ALT/SGPT) 32 12-78 U/L Alkaline Phosphatase 59 50-136 U/L Total Protein 5.5 L 6.0-8.3 g/dL Albumin 3.1 L 3.5-5.0 g/dL Magnesium Level 2.20 1.80-2.40 mg/dL DIAGNOSTICS / RADIOLOGY RESULTS: [ ] PLAN NEURO: Minimize central acting medications as possible. Maintain fall precautions, adequate lighting during the day PULMONARY: Supplemental 02 as needed. Maintain aspiration precautions at all times CARDIOVASCULAR: Follow hemodynamics. Vital signs per facility protocol GI & NUTRITION: Continue with nutritional support. Continue stool softeners and laxatives as needed. KIDNEYS & ELECTROLYTES: Strict monitoring of intake, output and overall fluid balance. Avoid nephrotoxic medications to the extent possible. Medications to be dosed according to renal function. Monitor electrolytes and replace as needed ENDOCRINE: Maintain blood glucose between 100-180 at all times. Hypoglycemia protocol in place INFECTIOUS DISEASE: Trend temperature, WBC and procalcitonin level Follow cultures, deescalate antibiotics as soon as possible. Panculture if new onset fever ONCOLOGY/HEMATOLOGY/COAGULATION: Monitor for s/s of bleeding Monitor hemoglobin, coagulation studies as needed SKIN: Pressure ulcer prevention per facility protocol Specialty mattress ORTHO/REHAB: Continue PT/OT Prophylaxis: Continue GI and DVT prophylaxis Code Status: Full Resuscitation Disposition: [facility] PAC Mar 24, 2025 13:48
--- NOTE | 2025-03-24 19:40 | DS ---
DATE OF DISCHARGE: 03/24/2025. PRESENTING COMPLAINT: Presents with complaints of altered mental status, metastasis. HOSPITAL COURSE: An 85-year-old male with obesity, hypertension, hypothyroidism, presented to hospital with above complaints. The patient admitted with subdural hematoma. The patient was also found with well-controlled hypertension, was admitted to ICU. The patient was seen by Cardiology and Neurosurgery. The patient underwent left spenser hole with drainage of subdural hematoma. The patient ____ for physical therapy. FINAL DISCHARGE DIAGNOSES: 1. Subdural hematoma, ____. 2. Hypertensive urgency. 3. Obesity. 4. Hypothyroidism. 5. ____ 6. Dyslipidemia. 7. Aortic stenosis. PLAN: 1. The patient was discharged home 2. Continue physical therapy. 3. Continue antihypertensives. 4. Continue pain management. 5. Follow up with Neurosurgery. 6. Follow up with Cardiology. 7. Continue Synthroid. 8. Continue fall precaution. TID: [id number] RECEIPT: [id number]
== END 2025-03-24 13:08 | DRG 25 ==
LOC: EDH 08:13 → EDHIP 09:59 → 2CH 14:02 → 2AH 03-23 01:30
PROVIDERS: ADMIT Internal Medicine Infectious Disease; ATTEND Internal Medicine Infectious Disease
PROC: 30233R1 Transfusion of Nonautologous Platelets into Peripheral Vein, Percutaneous Approach (ICD-10-PCS; 2025-03-21)
PROC: 00943ZZ Drainage of Intracranial Subdural Space, Percutaneous Approach (ICD-10-PCS; principal; 2025-03-21 14:46)
DX: I62.01 Nontraumatic acute subdural hemorrhage (principal); G93.5 Compression of brain; G93.6 Cerebral edema; I16.1 Hypertensive emergency; I50.32 Chronic diastolic (congestive) heart failure; I25.10 Atherosclerotic heart disease of native coronary artery without angina pectoris; I11.0 Hypertensive heart disease with heart failure; E03.9 Hypothyroidism, unspecified; E66.9 Obesity, unspecified; I35.0 Nonrheumatic aortic (valve) stenosis; K44.9 Diaphragmatic hernia without obstruction or gangrene; I73.9 Peripheral vascular disease, unspecified; E78.00 Pure hypercholesterolemia, unspecified; K22.5 Diverticulum of esophagus, acquired; D64.9 Anemia, unspecified; Z79.02 Long term (current) use of antithrombotics/antiplatelets; Z79.82 Long term (current) use of aspirin; Z86.73 Personal history of transient ischemic attack (TIA), and cerebral infarction without residual deficits; Z87.891 Personal history of nicotine dependence; Z88.2 Allergy status to sulfonamides; Z95.1 Presence of aortocoronary bypass graft; Z95.2 Presence of prosthetic heart valve; Z68.20 Body mass index [BMI] 20.0-20.9, adult
CPT/HCPCS: 36415; 36430; 70450; 71045; 80048; 80053; 81001; 82948; 83036; 83735; 84484; 85025; 85027; 85610; 85730; 86850; 86900; 86901; 87635; 87804; 87880; 93005; 99291; C1713; G0378; J0330; J0360; J0690; J1100; J2003; J2250; J2371; J2405; J2597; J2704; J2710; J3010; J3260; J3360; J3373; J3490; J7030; J7050; P9034; A4215; A4216; A4222; A4223; A4649; A4663; A4930; A6010; A6204; J0665

== ENCOUNTER → 2025-05-17 | Outpatient (CLI) | payer MEDICARE ==
--- NOTE | 2025-05-17 14:34 | HMCIMG ---
CLINICAL INFORMATION Subdural hematoma COMPARISON Head CT 03/21/2025. TECHNIQUE Volumetric helical CT images of the head without contrast FINDINGS Cerebral parenchyma: Small left frontoparietal convexity subdural hematoma, measuring up to 3 mm. No mass effect or midline shift. No acute intraparenchymal hemorrhage. Lanza-white matter differentiation is grossly maintained. Ventricular system: Normal for age. Bones: Prior left frontal craniotomy.. Vascular system: Normal. Paranasal sinuses: Aerated secretions within the left sphenoid sinus Mastoid air cells: Normal. Visualized Orbits: Normal. Soft Tissues: Hyperdense material compatible with prior meningeal artery procedure is present in the left temporal region. IMPRESSION Small left frontoparietal convexity subdural hematoma, measuring up to 3 mm. No mass effect or midline shift. This is significantly decreased in size from prior head CT. Aerated secretions within the left sphenoid sinus. Correlate for acute sinusitis. /Stewart
== END | disposition home or self-care (01) ==
LOC: RAH 13:35
PROVIDERS: ATTEND Neuromusculoskeletal Medicine & OMM
DX: S06.5XAA Traumatic subdural hemorrhage with loss of consciousness status unknown, initial encounter (principal); X58.XXXA Exposure to other specified factors, initial encounter; Y93.89 Activity, other specified; Y92.89 Other specified places as the place of occurrence of the external cause; Y99.8 Other external cause status
CPT/HCPCS: 70450